=== PATIENT | female | born 1995 | race Caucasian/White ===

== ENCOUNTER 2020-03-15 09:41 | Emergency (ER) | payer MEDICAID, SELFPAY ==
[2020-03-15 10:10] VITALS: BP 133/86; PULSE 108; RESP 18; TEMP 37.1; O2SAT 99; BMI 22.2
--- NOTE | 2020-03-15 10:19 | HMH.EDUTC ---
[facility] [place]position Clinical Impression: Bronchitis Sinusitis Qualifiers: Sinusitis location: unspecified location Chronicity: unspecified Qualified Code(s): J32.9 - Chronic sinusitis, unspecified Disposition: Home, Self-Care Condition on Discharge: Good Instructions: Sinusitis, Sinus Headache, Acute Bronchitis, DI for Sinusitis Additional Instructions: ? Start antibiotic today. Be sure to complete entire prescription even if feeling better ? Monitor temp. Tylenol every 4 hours as needed and / or ibuprofen every 6 hours as needed ( As long as your primary care physician has told you that it ok to take both. For fever/aches/pains ER if no less than 101 despite Tylenol or Motrin ? Humidifier/vaporizer or hot steamy shower ? Mucinex during the day for your cough and cough suppressant only at night. Be sure to drink lots of water. Insurance may not cover a prescriptions for mucinex. Might be cheaper to get 400mg tablets and take 2 tablet in the morning, mid-day and evening with lots of water. *Tessalon Perles will not cause drowsiness but use at bedtime to help stop cough so that you may get some rest. *Start steroid today. Helps with inflammation therefore, cough and wheezing. Follow directions on the package. Reviewed side effects. Patient reports taking them before. Follow up IMMEDIATELY for new or worsening of symptoms OR no noticeable improvement over the next 48-72 hours. 911 immediately for any life threatening symptoms such as chest pain or difficulty breathing Prescriptions: Amoxicillin/Potassium Clav [Augmentin 875-125 Tablet] 1 tab PO Q12H 10 Days #20 tab Transmission Status: Pending to [facility] #[id number] methylPREDNISolone [Medrol 4mg tab] 4 mg PO DIRECTED #21 tab Transmission Status: Pending to [facility] #[id number] Benzonatate [Tessalon Perle 100mg Cap*] 100 mg PO TID PRN #15 cap PRN Reason: Cough Transmission Status: Pending to [facility] #[id number] Referrals: Corina Spence PA [Primary Care Provider] - As needed Time of Disposition: 10:24 Medical Decision Making - Arsalan Inquiry Pt receiving controlled substance: No Arsalan was queried for this patient: No Vital Signs: 03/15/20 10:10 Temperature 98.8 F Temperature Source Oral Pulse Rate [Left Radial] 108 H Respiratory Rate 18 Blood Pressure [Right Arm] 133/86 Blood Pressure Mean [Right Arm] 101 Blood Pressure Source [Right Arm] Automatic Cuff Blood Pressure Position [Right Arm] Supine 02 Sat by Pulse Oximetry 99 Oxygen Delivery Method Room Air [facility] [place] HPI - General Stated complaint: cough up junk Time Seen by Provider: 03/15/20 10:19 Mode of Arrival: Ambulatory Source of Information: Patient Limitations: No Limitations Description of Symptoms (Recalled from Triage Doc. by RN): WAS DIAGNOSED WITH BRONCHITISIS A FEW DAYS AGO AND FEELS SHE HAS IT, COUGHING UP PHELGM HEENT Symptoms (Recalled from RN notes): No Resp Symptoms (Recalled from RN notes): Yes Skin Symptoms (Recalled from RN notes): No MS Symptoms (Recalled from RN notes): No Functional Status (Recalled from RN notes): WNL - History of Present Illness Provider Complaint: Patient states that she thinks she has bronchitis States that she has been having cough, sinus pain and pressure along with pain in both ears States that she feels like her ears are stopped up States that she hasnt had a fever that she is aware of States that she is having drainage in the back of her throat and it makes her cough and at times she coughs it up - Related Data Previous Rx's Medication Instructions Recorded Amoxicillin/Potassium Clav 1 tab PO Q12H 10 Days #20 tab 03/15/20 [Augmentin 875-125 Tablet] Benzonatate [Tessalon Perle 100mg 100 mg PO TID PRN #15 cap 03/15/20 Cap*] methylPREDNISolone [Medrol 4mg 4 mg PO DIRECTED #21 tab 03/15/20 tab] Allergies Allergy/AdvReac Type Severity Reaction Status Date / Time No Known Allergies Allergy Verified
[2020-03-15 10:46] VITALS: BP 133/86; PULSE 108; RESP 18; TEMP 37.1; O2SAT 99
== END 2020-03-15 10:39 | disposition home or self-care (01) ==
PROVIDERS: Emergency Provider Nurse Practitioner; PCP Nurse Practitioner Family
DX: J20.9 Acute bronchitis, unspecified (principal); J32.9 Chronic sinusitis, unspecified
CPT/HCPCS: 99201

== ENCOUNTER 2023-04-11 09:50 | Emergency (ER) | payer MEDICAID, SELFPAY ==
[2023-04-11 10:10] VITALS: BP 130/87; PULSE 101; RESP 18; TEMP 37.2; O2SAT 100; BMI 18.8
--- NOTE | 2023-04-11 10:18 | EXP.UTC ---
Discharge Plan Disposition Patient Disposition: Home, Self-Care Condition: Good Prescriptions Prescriptions: New methylprednisolone 4 mg Tablets,Dose Pack 4 mg PO DIRECTED Qty: 21 0RF albuterol sulfate [Ventolin HFA] 90 mcg/actuation HFA aerosol inhaler 2 puff inhalation Q6H PRN (Reason: shortness of breath or wheezing) Qty: 6.7 0RF benzonatate [benzonatate] 100 mg capsule 100 mg PO TIDP PRN (Reason: Cough) Qty: 30 0RF Referrals Follow up/Referrals: Kristina Morgan APRN [Primary Care Provider] - See instructions Activity Restrictions/Add. Instructions Additional Instructions/Restrictions: Continue the azithromycin that you have already started. Take tylenol or ibuprofen for pain or fever. Take the medications as directed. Follow up with your regular doctor. GO TO THE ER FOR ANY WORSENING SYMPTOMS Don't start the oral steroids until tomorrow, since you had the shot here today. Clinical Impressions Clinical Impression: Pneumonia Stand Alone Forms Stand Alone Forms: Work/School Release Instructions Patient Instructions: Pneumonia-Adult, Ceftriaxone Injection, Dexamethasone Injection Discharge ED Provider: Johan Bah [facility] General Stated complaint: lung pain, runny nose, fever Time Seen by Provider: 04/11/23 10:18 History of Present Illness Provider Complaint: She states that for the past 2 weeks she has had cough, sinus congestion and chest congestion. She has ran a fever for the past 3 days. Related Data Previous Rx's Medication Instructions Recorded albuterol sulfate 90 mcg/actuation 2 puff inhalation Q6H PRN 04/11/23 aerosol inhaler (Ventolin HFA) shortness of breath or wheezing #6.7 grams benzonatate 100 mg capsule 100 mg PO TIDP PRN Cough #30 caps 04/11/23 methylprednisolone 4 mg tablets in 4 mg PO DIRECTED #21 tabs 04/11/23 a dose pack Allergies Allergy/AdvReac Type Severity Reaction Status Date / Time No Known Allergies Allergy Verified 04/11/23 10:40 [facility] Disclaimer: The information contained in this section may have been updated after the patient was seen, as this information can be updated by other users. Social History Smoking Status: Never smoker alcohol intake: never current occupational status: employed Travel in the last 8 weeks: None ROS Obtained: Yes All systems reviewed & no additional complaints except as documented Constitutional Constitutional: Reports chills and Reports fever(s) Eyes Eyes: Denies eye discharge ENT Ears, Nose, Mouth, and Throat: Reports as per HPI Cardiovascular Cardiovascular: Denies chest pain Respiratory Respiratory: Denies chest congestion and Reports cough Gastrointestinal Gastrointestingal: Reports nausea; Denies abdominal pain, constipation, cramping, diarrhea or vomiting Musculoskeletal Musculoskeletal: Denies arthralgias Integumentary/Breasts Skin/Breast: Denies rash Neurologic Neurologic: Denies paresthesias Physical Exam General General appearance: alert and in no apparent distress Head Head exam: atraumatic, normocephalic and normal inspection Eye Eye exam: Present normal appearance, PERRL and EOMI ENT ENT exam: Present mucous membranes moist and normal external ear exam Expanded ENT Exam TM/Canal exam: Bilateral TM: erythema and bulging Nose exam: Absent sinus tenderness Mouth exam: Present normal external inspection; Absent drooling Teeth exam: Present normal inspection Throat exam: Present tonsillar erythema, tonsillomegaly and tonsillar exudate Neck Neck exam: Present normal inspection, full ROM and trachea midline; Absent tenderness, meningismus or lymphadenopathy Chest Chest inspection: Present normal inspection and symmetric chest wall rise; Absent tenderness Respiratory Respiratory exam: Present normal lung sounds bilaterally; Absent respiratory distress, wheezes or stridor Cardiovascular Cardiovascular exam: Present regular rate and normal rhythm; A
--- NOTE | 2023-04-11 10:23 | XR_ITS ---
FINAL REPORT CLINICAL HISTORY: cough FINDINGS: TWO-VIEW CHEST The heart size is normal. The mediastinum is normal. The lungs are clear. There is no pneumothorax. IMPRESSION: No acute cardiopulmonary process. Reviewed, Interpreted and Dictated by Buddy Ross MD Transcribed by Rosemarie Black Authenticated and [facility]
[2023-04-11 10:33] LABS: UTC Pregnancy Test, Urine Negative (Negative)
[2023-04-11 10:33] LABS: UTC Influenza A Antigen Negative (Negative); UTC Influenza B Antigen Negative (Negative)
[2023-04-11 11:30] VITALS: BP 130/87; PULSE 101; RESP 20; TEMP 37.2; O2SAT 100
== END 2023-04-11 11:39 | disposition home or self-care (01) ==
PROVIDERS: Emergency Provider Nurse Practitioner Family; PCP Nurse Practitioner Family
DX: J18.9 Pneumonia, unspecified organism (principal); R07.1 Chest pain on breathing; R50.9 Fever, unspecified; R05.9 Cough, unspecified; R09.81 Nasal congestion; R09.89 Other specified symptoms and signs involving the circulatory and respiratory systems; R11.0 Nausea
CPT/HCPCS: 71046; 81025; 87635; 87804; 96372; 99204; 99212; G0463; J0696

== ENCOUNTER 2023-05-02 12:59 | Emergency (ER) | payer MEDICAID, SELFPAY ==
[2023-05-02 13:25] VITALS: BP 141/85; PULSE 77; RESP 22; TEMP 36.9; O2SAT 100; BMI 18.9
[2023-05-02 13:57] LABS: Adenovirus,PCR Not Detected (NotDetected); Bordetella Pertussis Not Detected (NotDetected); Chlamydophila Pneumoniae, PCR Not Detected (NotDetected); Coronavirus 19, PCR Not Detected (NotDetected); Coronavirus 229E Not Detected (NotDetected); Coronavirus NL63 Not Detected (NotDetected); Coronavirus OC43 Not Detected (NotDetected); Coronovirus HKU1,PCR Not Detected (NotDetected); Human Metapneumovirus Not Detected (NotDetected); Influenza A, PCR Not Detected (NotDetected); Influenza AH1, 2009 Not Detected (NotDetected); Influenza AH1, PCR Not Detected (NotDetected); Influenza AH3,PCR Not Detected (NotDetected); Influenza B, PCR Not Detected (NotDetected); Mycoplasma Pneumoniae, PCR Not Detected (NotDetected); Parainfluenza 1, PCR Not Detected (NotDetected); Parainfluenza 2, PCR Not Detected (NotDetected); Parainfluenza 3, PCR Not Detected (NotDetected); Parainfluenza 4, PCR Not Detected (NotDetected); Respiratory Syncytial Virus Not Detected (NotDetected); Rhinovirus/Enterovirus Not Detected (NotDetected)
[2023-05-02 14:02] LABS: UTC Influenza A Antigen Negative (Negative); UTC Influenza B Antigen Negative (Negative)
[2023-05-02 14:03] VITALS: BP 141/85; PULSE 77; RESP 22; TEMP 36.9; O2SAT 100
--- NOTE | 2023-05-02 14:05 | EXP.UTC ---
Discharge Plan Disposition Patient Disposition: Home, Self-Care Condition: Good Prescriptions Prescriptions: No Action venlafaxine 37.5 mg capsule,extended release 24hr 37.5 mg PO DAILY Patient Comments: TAKE 1 CAPSULE BY MOUTH EVERY DAY WITH FOOD amitriptyline 10 mg tablet 10 mg PO DAILY Patient Comments: TAKE 1 TABLET BY MOUTH AT BEDTIME NEEDED quetiapine 50 mg tablet 50 mg PO DAILY Patient Comments: TAKE 1 TABLET BY MOUTH EVERY DAY AT BEDTIME Referrals Follow up/Referrals: Kristina Morgan APRN [Primary Care Provider] - See instructions Activity Restrictions/Add. Instructions Additional Instructions/Restrictions: *Monitor Temp, Over the counter Motrin or Tylenol as directed/as needed Tylenol every 4 hours and Motrin every 6 hours (as long as your family doctor has told you that you can take it) for fever or pain. and straight to ER if unable to lower temp less than 101.0 after medication given *Warm salt water gargles may help to soothe the throat *Throat Lozenges? *Warm fluids like tea with honey may help to soothe the throat? *Sleep elevated *Humidifier/Vaporizer *Your throat swab was sent for culture. Those results are typically sent to your primary care. Be sure to follow up in 2-3 days with your family doctor/primary care physician if no improvement so they can review those result and treat if necessary. If you don?t have a primary care doctor, I recommend you get one but in the mean time, you will have to return to a walk in clinic Follow up IMMEDIATELY for new or worsening symptoms or no Noticeable improvement over the next 48-72 hours. 911 for difficulty breathing or swallowing You were tested for today for ?Upper Respiratory Panel with COVID19 your test result should be back in the next 24hours, you may check your results on the [facility] [facility] if your COVID or Flu is positive you must Quarantine for 5 days Clinical Impressions Clinical Impression: Viral syndrome Stand Alone Forms Stand Alone Forms: Work/School Release Instructions Patient Instructions: DI for Viral Syndrome, DI for Fever (Symptom) -- Adult Discharge ED Provider: Nuvia Dolan [facility] [place] HPI General Stated complaint: body aches, fever Mode of Arrival: Ambulatory Source of Information: Patient Limitations: No Limitations Time Seen by Provider: 05/02/23 14:05 Description of Symptoms (Recalled from Triage Doc. by RN): PATIENT C/O BODY ACHES, FATIGUE, FEVER, EYE DRAINAGE, AND HEADACHE SINCE MONDAY. RECENTLY EXPOSED TO COVID HEENT Symptoms (Recalled from RN notes): Yes Resp Symptoms (Recalled from RN notes): No Skin Symptoms (Recalled from RN notes): No MS Symptoms (Recalled from RN notes): No Functional Status (Recalled from RN notes): WNL History of Present Illness Provider Complaint: Patient states that she was recently around someone at work that has COVID States that now she is having symptoms States that she has been having nasal congestion, fever, body aches, chills and fatigue since Monday States that work wanted her to get tested Related Data Home Medications Medication Instructions Recorded Confirmed amitriptyline 10 mg tablet 10 mg PO DAILY 05/02/23 05/02/23 quetiapine 50 mg tablet 50 mg PO DAILY 05/02/23 05/02/23 venlafaxine 37.5 mg 37.5 mg PO DAILY 05/02/23 05/02/23 capsule,extended release 24 hr Allergies Allergy/AdvReac Type Severity Reaction Status Date / Time No Known Allergies Allergy Verified 04/11/23 10:40 Worker's Comp Is this a Worker's Comp case?: No [facility] Disclaimer: The information contained in this section may have been updated after the patient was seen, as this information can be updated by other users. Medical History (Updated 05/02/23 @ 14:08 by Nuvia Dolan APRN) Anxiety Depression Kidney stone Migraine Urinary tract infection Social History (Updated 04/11/23 @ 15:02 by Johan Bah APRN) Smoking Status: Never smoker alcohol intake: never current occupational status: employed Travel in the last 8 weeks: None ROS Obtained: Yes All systems reviewed & no additional complaints except as documented and Yes Systems reviewed as appropriate & no additional complaints except as documented Constitutional Constitutional: Reports system reviewed and no additional complaints, except as documented, Reports as per HPI, Reports body ache, Reports chills, Reports fever(s) and Reports headache(s) ENT Ears, Nose, Mouth, and Throat: Reports system reviewed and no additional complaints, except as documented, Reports as per HPI, Reports headache(s), Reports nasal congestion and Reports nasal discharge Cardiovascular Cardiovascular: Reports system reviewed and no additional complaints, except as documented and Reports as per HPI Respiratory Respiratory: Reports system reviewed and no additional complaints, except as documented and Reports as per HPI Gastrointestinal Gastrointestingal: Reports system reviewed and no additional complaints, except as documented and as per HPI Neurologic Neurologic: Reports headache(s) Physical Exam General General appearance: alert and in no apparent distress ENT ENT exam: Present mucous membranes moist Expanded ENT Exam Nose exam: Absent sinus tenderness Chest Chest inspection: Present normal inspection and symmetric chest wall rise Respiratory Respiratory exam: Present normal lung sounds bilaterally; Absent respiratory distress or wheezes Cardiovascular Cardiovascular exam: Present regular rate, normal rhythm and normal heart sounds Neurological Exam Neurological exam: Present alert, oriented X3 and normal gait Medical Decision Making Arsalan Inquiry Pt receiving controlled substance: No Arsalan was queried for this patient: No Vital Signs: 05/02/23 13:25 05/02/23 14:03 Temperature 98.5 F 98.5 F Temperature Source Oral Pulse Rate 77 Pulse Rate [Left Brachial] 77 Respiratory Rate 22 22 Blood Pressure 141/85 H Blood Pressure [Left Arm] 141/85 H Blood Pressure Mean [Left Arm] 103 Blood Pressure Source [Left Arm] Automatic Cuff Blood Pressure Position [Left Arm] Sitting 02 Sat by Pulse Oximetry 100 Oxygen Delivery Method Room Air Lab Data Lab results reviewed: Yes I reviewed the patient's lab results. Lab Results 05/02/23 13:36: Influenza Type A Ag Negative, Influenza Type B Ag Negative Orders (Tests/Meds): ORDERS Category Date Time Status Full Resp Panel w/COVID ([facility]) Routine Lab 05/02/23 13:20 Received
== END 2023-05-02 14:19 | disposition home or self-care (01) ==
PROVIDERS: Emergency Provider Nurse Practitioner; PCP Nurse Practitioner Family
DX: R51.9 Headache, unspecified (principal); R50.9 Fever, unspecified; R09.81 Nasal congestion; R53.83 Other fatigue; M79.18 Myalgia, other site; B34.9 Viral infection, unspecified; Z20.822 Contact with and (suspected) exposure to COVID-19; F41.9 Anxiety disorder, unspecified; F32.A Depression, unspecified
CPT/HCPCS: 87581; 87632; 87635; 87798; 87804; 99212; 99213; G0463

== ENCOUNTER 2023-05-31 14:05 | Emergency (ER) | payer MEDICAID, SELFPAY ==
[2023-05-31 14:07] VITALS: BP 141/98; PULSE 106; RESP 18; TEMP 36.7; O2SAT 98; BMI 18.8
--- NOTE | 2023-05-31 14:19 | ED_ITS ---
Discharge Plan Disposition Patient Disposition: Home, Self-Care Condition: Good Prescriptions Prescriptions: No Action venlafaxine 37.5 mg capsule,extended release 24hr 37.5 mg PO DAILY Patient Comments: TAKE 1 CAPSULE BY MOUTH EVERY DAY WITH FOOD amitriptyline 10 mg tablet 10 mg PO DAILY Patient Comments: TAKE 1 TABLET BY MOUTH AT BEDTIME NEEDED quetiapine 50 mg tablet 50 mg PO DAILY Patient Comments: TAKE 1 TABLET BY MOUTH EVERY DAY AT BEDTIME Referrals Follow up/Referrals: Hugo Jordan MD [Staff Physician] - See instructions Kristina Morgan APRN [Primary Care Provider] - See instructions Activity Restrictions/Add. Instructions Additional Instructions/Restrictions: Please call Dr. Bullock's office to arrange an appointment in the a.m. Clinical Impressions Clinical Impression: Raynaud's phenomenon Discharge ED Provider: Lauri Montes De Oca General Adult HPI <ISELA Hinds - Last Filed: 05/31/23 16:12> General Chief complaint: PAIN Stated complaint: swollen hands, feet and ankles swollen and painful Time Seen by Provider: 05/31/23 14:10 History of Present Illness HPI narrative: Patient presents with cold bilateral distal fingers bilateral feet which received swelling and pain since Monday. Patient denies trauma has never been diagnosed with Raynaud's phenomenon previously. 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 Onset (ago): day(s) (5) Related Data Home Medications Medication Instructions Recorded Confirmed amitriptyline 10 mg tablet 10 mg PO DAILY 05/02/23 05/02/23 quetiapine 50 mg tablet 50 mg PO DAILY 05/02/23 05/02/23 venlafaxine 37.5 mg 37.5 mg PO DAILY 05/02/23 05/02/23 capsule,extended release 24 hr Allergies Allergy/AdvReac Type Severity Reaction Status Date / Time No Known Allergies Allergy Verified 04/11/23 10:40 PFSH <ISELA Hinds - Last Filed: 05/31/23 16:12> [facility] Disclaimer: The information contained in this section may have been updated after the patient was seen, as this information can be updated by other users. Medical History (Updated 05/31/23 @ 16:12 by ISELA Hinds) Anxiety Depression Kidney stone Migraine Urinary tract infection Social History (Updated 04/11/23 @ 15:02 by Johan Bah APRN) Smoking Status: Current every day smoker alcohol intake: never current occupational status: employed Travel in the last 8 weeks: None <ISELA Hinds - Last Filed: 05/31/23 16:12> ROS Obtained: Yes Systems reviewed as appropriate & no additional complaints except as documented Physical Exam <ISELA Hinds - Last Filed: 05/31/23 16:12> Narrative Physical exam: Patient is a well-nourished well-developed 27-year-old female who otherwise is in no acute distress General General appearance: alert and in no apparent distress Head Head exam: atraumatic and normal inspection Eye Eye exam: Present normal appearance, PERRL and EOMI ENT ENT exam: Present normal exam, normal oropharynx and mucous membranes moist Neck Neck exam: Present normal inspection, full ROM and trachea midline; Absent lymphadenopathy Chest Chest inspection: Present normal inspection and symmetric chest wall rise Respiratory Respiratory exam: Present normal lung sounds bilaterally Cardiovascular Cardiovascular exam: Present regular rate, normal rhythm, normal heart sounds, +S1 and +S2 Abdominal Exam Abdominal exam: Present soft and normal bowel sounds; Absent tenderness, guarding or rebound Extremities Exam Extremities exam: Present normal inspection and full ROM; Absent normal capillary refill (Delayed) Back Exam Back exam: Present normal inspection and full ROM Neurological Exam Neurological exam: Present alert, oriented X3 and CN II-XII intact Psychiatric Psychiatric exam: Present normal affect and normal mood Skin Skin exam: Present other (Patient has a well-demarcated redness at the distal phalanges of the bilateral upper extremities and both feet. The skin is cool to touch. There is delayed capillary refill. Patient does have palpable pulses however soft touch is eliciting a tender response in the affected areas.) Lymphatic Lymphatic Findings: no adenopathy Medical Decision Making <ISELA Hinds - Last Filed: 05/31/23 16:12> Arsalan Inquiry Pt receiving controlled substance: No Vital Signs: 05/31/23 14:07 05/31/23 16:43 Temperature 98.1 F 98.1 F Temperature Source Oral Oral Pulse Rate 98 H Pulse Rate [Right] 106 H Respiratory Rate 18 18 Blood Pressure 128/82 Blood Pressure [Right Arm] 141/98 H Blood Pressure Mean [Right Arm] 112 Blood Pressure Source Automatic Cuff Blood Pressure Source [Right Arm] Automatic Cuff 02 Sat by Pulse Oximetry 98 Oxygen Delivery Method Room Air Room Air Lab Data Lab Results 05/31/23 14:31: Urine Color Yellow, Urine Appearance Clear, Urine pH 6.0, Ur Specific [place] 1.015, Urine Protein Negative, Urine Glucose (UA) Negative, Urine Ketones Negative, Urine Blood Negative, Urine Nitrate Negative, Urine Bilirubin Negative, Urine Urobilinogen 0.2, Ur Leukocyte Esterase Negative, Urine RBC None, Urine WBC None, Ur Squamous Epith Cells Occasional, Urine David teria Trace 05/31/23 14:45: WBC 8.3, RBC 4.78, Hgb 14.7, Hct 44.8, MCV 93.7, MCH 30.8, MCHC 32.8, RDW 13.1, Plt Count 176, MPV 8.7, Neut % (Auto) 66.7, Lymph % (Auto) 25.6, [place] % (Auto) 4.2, Eos % (Auto) 2.7, Baso % (Auto) 0.9, Neut # (Auto) 5.5, Lymph # (Auto) 2.1, [place] # (Auto) 0.4, Eos # (Auto) 0.2, Baso # (Auto) 0.1, Total Counted 100, Neutrophils % (Manual) 71, Lymphocytes % (Manual) 25, Monocytes % (Manual) 2, Eosinophils % (Manual) 2, Platelet Estimate Normal, RBC Morphology Normal, ESR 7, Sodium 139, Potassium 3.3 L, Chloride 103, Carbon Dioxide 29, Anion Gap 10.3, BUN 9, Creatinine 0.80, Estimated Creat Clear 89, Estimated GFR 85, Est GFR ( Amer) 103, Glucose 67 L, Calcium 9.4, C-Reactive Protein 1.0, TSH 0.88 05/31/23 14:45 05/31/23 14:45 Orders (Tests/Meds): ORDERS Category Date Time Status BMP [Basic Metabolic Panel] Stat Lab 05/31/23 14:45 Completed CBC Man Diff [Complete Blood Count Man Dif] Stat Lab 05/31/23 14:45 Completed CRP [C-Reactive Protein] Stat Lab 05/31/23 14:45 Completed ESR [Erythrocyte Sedimentation Rate] Stat Lab 05/31/23 14:45 Completed TSH [Thyroid Stimulating Hormone] Stat Lab 05/31/23 14:45 Completed UA [Urinalysis and Microscopic] Stat Lab 05/31/23 14:31 Completed Medical Decision Narrative: In summary patient is a 27-year-old female who presents to the emergency department for evaluation of coldness pain and swelling of the bilateral hands and feet. Patient is hemodynamically stable and afebrile upon arrival. Patient has a normal sinus rhythm without evidence of ACS with a rate of 80. Patient has well-demarcated color changes of the distal hands and feet that are cool to touch and possibly slightly swollen although it is nonpitting. Palpation elicits tenderness in the affected areas. Differential diagnosis includes Raynaud's phenomenon versus scleroderma or other rheumatological or autoimmune diseases. Initial workup will be conducted with hematologic labs. Initial interventions include warming blankets to the external extremities. Initial workup reviewed by me shows no actionable hematological lab results including normal white count normal sed rate normal CRP normal TSH. Upon repeat evaluation patient reports mild improvement after warming of her distal extremity discomfort. Given this patient is appropriate for discharge home with instructions to keep her rheumatology follow-up in August along with a referral to Dr. Bullock locally as her PCP will not be able to see her for almost a month if not longer. Patient's been instructed to decrease and cease smoking as it is likely the provocative event. Patient is been advised to keep her extremities and core warm is much as possible given her job. Patient can follow-up with PCP or return to ED with worsening of symptoms or any new symptoms as needed <Sana Mendes, DO - Last Filed: 06/01/23 07:42> Vital Signs: 05/31/23 14:07 05/31/23 16:43 Temperature 98.1 F 98.1 F Temperature Source Oral Oral Pulse Rate 98 H Pulse Rate [Right] 106 H Respiratory Rate 18 18 Blood Pressure 128/82 Blood Pressure [Right Arm] 141/98 H Blood Pressure Mean [Right Arm] 112 Blood Pressure Source Automatic Cuff Blood Pressure Source [Right Arm] Automatic Cuff 02 Sat by Pulse Oximetry 98 Oxygen Delivery Method Room Air Room Air Lab Data Lab Results 05/31/23 14:31: Urine Color Yellow, Urine Appearance Clear, Urine pH 6.0, Ur Specific [place] 1.015, Urine Protein Negative, Urine Glucose (UA) Negative, Urine Ketones Negative, Urine Blood Negative, Urine Nitrate Negative, Urine Bilirubin Negative, Urine Urobilinogen 0.2, Ur Leukocyte Esterase Negative, Urine RBC None, Urine WBC None, Ur Squamous Epith Cells Occasional, Urine Bacteria Trace 05/31/23 14:45: WBC 8.3, RBC 4.78, Hgb 14.7, Hct 44.8, MCV 93.7, MCH 30.8, MCHC 32.8, RDW 13.1, Plt Count 176, MPV 8.7, Neut % (Auto) 66.7, Lymph % (Auto) 25.6, [place] % (Auto) 4.2, Eos % (Auto) 2.7, Baso % (Auto) 0.9, Neut # (Auto) 5.5, Lymph # (Auto) 2.1, [place] # (Auto) 0.4, Eos # (Auto) 0.2, Baso # (Auto) 0.1, Total Counted 100, Neutrophils % (Manual) 71, Lymphocytes % (Manual) 25, Monocytes % (Manual) 2, Eosinophils % (Manual) 2, Platelet Estimate Normal, RBC Morphology Normal, ESR 7, Sodium 139, Potassium 3.3 L, Chloride 103, Carbon Dioxide 29, Anion Gap 10.3, BUN 9, Creatinine 0.80, Estimated Creat Clear 89, Estimated GFR 85, Est GFR ( Amer) 103, Glucose 67 L, Calcium 9.4, C-Reactive Protein 1.0, TSH 0.88 Orders (Tests/Meds): ORDERS Category Date Time Status BMP [Basic Metabolic Panel] Stat Lab 05/31/23 14:45 Completed CBC Man Diff [Complete Blood Count Man Dif] Stat Lab 05/31/23 14:45 Completed CRP [C-Reactive Protein] Stat Lab 05/31/23 14:45 Completed ESR [Erythrocyte Sedimentation Rate] Stat Lab 05/31/23 14:45 Completed TSH [Thyroid Stimulating Hormone] Stat Lab 05/31/23 14:45 Completed UA [Urinalysis and Microscopic] Stat Lab 05/31/23 14:31 Completed Medical Decision Narrative: In summary patient is a 27-year-old female who presents to the emergency department for evaluation of coldness pain and swelling of the bilateral hands and feet. Patient is hemodynamically stable and afebrile upon arrival. Patient has a normal sinus rhythm without evidence of ACS with a rate of 80. Patient has well-demarcated color changes of the distal hands and feet that are cool to touch and possibly slightly swollen although it is nonpitting. Palpation elicits tenderness in the affected areas. Differential diagnosis includes Raynaud's phenomenon versus scleroderma or other rheumatological or autoimmune diseases. Initial workup will be conducted with hematologic labs. Initial interventions include warming blankets to the external extremities. Initial workup reviewed by me shows no actionable hematological lab results including normal white count normal sed rate normal CRP normal TSH. Upon repeat keyur luation patient reports mild improvement after warming of her distal extremity discomfort. Given this patient is appropriate for discharge home with instructions to keep her rheumatology follow-up in August along with a referral to Dr. Bullock locally as her PCP will not be able to see her for almost a month if not longer. Patient's been instructed to decrease and cease smoking as it is likely the provocative event. Patient is been advised to keep her extremities and core warm is much as possible given her job. Patient can follow-up with PCP or return to ED with worsening of symptoms or any new symptoms as needed I was consulted by the JENNIFER, and we discussed the complexity of the problems nettie fiore addressed. I approved the treatment and management plan for this patient's care in the emergency department, thus performing a substantive portion of the medical decision making. Sana Mendes, DO Critical Care <ISELA Hinds - Last Filed: 05/31/23 16:12> Critical Care Time Critical Care Time: No
[2023-05-31 15:01] LABS: MANUAL DIFFERENTIAL MANUAL DIFFERENTIAL (MANUAL DIFF)
[2023-05-31 15:01] LABS: Microscopic, Urine URINE MICROSCOPIC (MICROSCOPIC)
[2023-05-31 15:04] LABS: Basophils # 0.1 K/mm3 (0-0.2); Basophils % 0.9 % (0.1-2.0); Eosinophils # 0.2 K/mm3 (0.0-0.4); Eosinophils % 2.7 % (0.1-12.0); Hematocrit 44.8 % (37.0-47.0); Hemoglobin 14.7 g/dL (12.2-16.2); Lymphocytes # 2.1 K/mm3 (0.7-4.5); Lymphocytes % 25.6 % (10-50); Mean Corpuscular HGB Conc 32.8 g/dL (31.8-35.4); Mean Corpuscular Hemoglobin 30.8 pg (27.0-31.2); Mean Corpuscular Volume 93.7 fl (81-99); Mean Platelet Volume 8.7 fl (7.4-10.4); Monocytes # 0.4 K/mm3 (0.1-1.0); Monocytes % 4.2 % (1.7-9.3); Neutrophils # 5.5 K/mm3 (1.8-7.8); Neutrophils % 66.7 % (37.0-80.0); Platelet Count 176 K/mm3 (142-424); Red Blood Count 4.78 M/mm3 (4.20-5.40); Red Cell Distribution Width 13.1 % (11.5-17.5); White Blood Count 8.3 K/mm3 (4.8-10.8)
[2023-05-31 15:08] LABS: Chloride 103 mmol/L (98-107); Potassium 3.3 mmoL/L (3.5-5.1); Sodium 139 mmol/L (136-145)
[2023-05-31 15:09] LABS: Appearance,Urine CLEAR (Clear); Bilirubin,Urine Negative (Negative); Blood, Urine Negative (Negative); Color,Urine YELLOW (Yellow); Glucose,Urine (UA) Negative (Negative); Ketones,Urine Negative (Negative); Leukocyte Esterase,Urine Negative (Negative); Nitrate,Urine Negative (Negative); Protein,Urine Negative (Negative); Specific Gravity, Urine 1.015 (1.005-1.030); Urobilinogen,Urine 0.2 EU/dl (0.2)
[2023-05-31 15:11] LABS: Blood Urea Nitrogen 9 mg/dl (7-17); Creatinine Clearance Estimated 89 mL/min (50-200); Estimated Glomerular Filt Rate 85 ml/min (>60); GFR (African American) 103 ML/MIN (>60)
[2023-05-31 15:12] LABS: Anion Gap 10.3 mEq/L (5-15); Calcium 9.4 mg/dl (8.4-10.2); Carbon Dioxide 29 mmol/L (22.0-30.0); Glucose 67 mg/dl (74-100)
[2023-05-31 15:37] LABS: Eosinophils % 2 % (0-3); Lymphocytes % 25 % (10-50); Monocytes % 2 % (2-9); Neutrophils % 71 % (42-76); Platelet Estimate Normal; RBC Morphology Normal; Total Cells Counted 100
[2023-05-31 15:44] LABS: Thyroid Stimulating Hormone 0.88 uIU/mL (0.465-4.68)
[2023-05-31 15:59] LABS: Bacteria,Urine Trace /lpf; Squamous Epithelial Cell,Urine Occasional #/hpf (0-5)
[2023-05-31 16:01] LABS: Erythrocyte Sedimentation Rate 7 mm/hr (0-20)
[2023-05-31 16:43] VITALS: BP 128/82; PULSE 98; RESP 18; TEMP 36.7; O2SAT 99
== END 2023-05-31 16:44 | disposition home or self-care (01) ==
PROVIDERS: Physician Assistant; Emergency Provider Emergency Medicine; PCP Nurse Practitioner Family
DX: I73.00 Raynaud's syndrome without gangrene (principal); M79.671 Pain in right foot; M79.672 Pain in left foot; R22.43 Localized swelling, mass and lump, lower limb, bilateral; F17.210 Nicotine dependence, cigarettes, uncomplicated
CPT/HCPCS: 80048; 81001; 84443; 85007; 85014; 85018; 85048; 85049; 85651; 86140; 99285

== ENCOUNTER 2023-06-10 11:37 | Emergency (ER) | payer MEDICAID, SELFPAY ==
[2023-06-10 11:48] VITALS: BP 0/0; PULSE 0; RESP 0; TEMP -17.7; TEMP 0
== END 2023-06-10 11:49 | disposition left against medical advice (07) ==
LOC: UTC 11:38
PROVIDERS: Emergency Provider Nurse Practitioner Family; PCP Nurse Practitioner Family
DX: Z53.21 Procedure and treatment not carried out due to patient leaving prior to being seen by health care provider (principal)

== ENCOUNTER 2023-07-27 14:38 | Emergency (ER) | payer MEDICAID, SELFPAY ==
[2023-07-27 14:45] VITALS: BP 153/97; PULSE 68; RESP 16; TEMP 36.6; O2SAT 100; BMI 19.7
--- NOTE | 2023-07-27 14:54 | XR_ITS ---
FINAL REPORT CLINICAL HISTORY: pain COMPARISON: None FINDINGS: RIGHT WRIST Three views demonstrate no acute fracture or dislocation. The visualized joint spaces are normally aligned. The soft tissues are unremarkable. IMPRESSION: No acute bony abnormality. Reviewed, Interpreted and Dictated by Buddy Ross MD Transcribed by Jackeline Mckeon Authenticated and [facility]
--- NOTE | 2023-07-27 14:54 | XR_ITS ---
FINAL REPORT CLINICAL HISTORY: pain COMPARISON: None FINDINGS: RIGHT HAND Three views demonstrate no acute fracture or dislocation. The visualized joint spaces are normally aligned. The soft tissues are unremarkable. IMPRESSION: No acute bony abnormality. Reviewed, Interpreted and Dictated by Buddy Ross MD Transcribed by Jackeline Mckeon Authenticated and [facility]
--- NOTE | 2023-07-27 14:57 | EXP.UTC ---
Discharge Plan Disposition Patient Disposition: Home, Self-Care Condition: Good Prescriptions Prescriptions: New methylprednisolone 4 mg Tablets,Dose Pack 4 mg PO DIRECTED 6 Days Qty: 21 0RF Rx Instructions: Take 1 pack as directed for 6 days No Action amitriptyline 10 mg tablet 10 mg PO DAILY Patient Comments: TAKE 1 TABLET BY MOUTH AT BEDTIME NEEDED quetiapine 50 mg tablet 50 mg PO DAILY Patient Comments: TAKE 1 TABLET BY MOUTH EVERY DAY AT BEDTIME Referrals Follow up/Referrals: Kristina Morgan APRN [Primary Care Provider] - See instructions Parish Rodríguez DO [Staff Physician] - See instructions Activity Restrictions/Add. Instructions Additional Instructions/Restrictions: Rest the extremity, Elevate the extremity as tolerated while you are resting. Take the medications as directed. Follow up with Dr. Rodríguez (orthopedics). I put in a referral but you need to call his office and schedule an appointment. Follow up with your regular doctor. GO TO THE ER FOR ANY WORSENING SYMPTOMS Clinical Impressions Clinical Impression: Tendinitis of right wrist, Right wrist pain, Right hand pain Stand Alone Forms Stand Alone Forms: Work/School Release Discharge ED Provider: Johan Bah [facility] [place] HPI General Stated complaint: possible cyst on Rt wrist Mode of Arrival: Ambulatory Source of Information: Patient Limitations: No Limitations Time Seen by Provider: 07/27/23 14:56 Description of Symptoms (Recalled from Triage Doc. by RN): PATIENT REPORTS HAVING A GANGLION CYST TO RIGHT WRIST X 5 YEARS. SHE STATES OVER THE PAST 6 DAYS HER RIGHT HAND HAS BECOME MORE PAINFUL AND SWOLLEN. NO KNOWN INJURY HEENT Symptoms (Recalled from RN notes): No Resp Symptoms (Recalled from RN notes): No Skin Symptoms (Recalled from RN notes): No MS Symptoms (Recalled from RN notes): Yes Functional Status (Recalled from RN notes): WNL History of Present Illness Provider Complaint: She states that for the past 5 days she has had right wrist and hand pain. She denies any injury. She does have a history of a ganglion cyst on that wrist, but she states that it has never caused her to have these symptoms. Related Data Home Medications Medication Instructions Recorded Confirmed amitriptyline 10 mg tablet 10 mg PO DAILY 05/02/23 07/27/23 quetiapine 50 mg tablet 50 mg PO DAILY 01/02/24 03/28/24 Previous Rx's Medication Instructions Recorded methylprednisolone 4 mg tablets in 4 mg PO DIRECTED 6 days #21 tabs 07/27/23 a dose pack Allergies Allergy/AdvReac Type Severity Reaction Status Date / Time No Known Allergies Allergy Verified 04/11/23 10:40 Worker's Comp Is this a Worker's Comp case?: No [facility] Disclaimer: The information contained in this section may have been updated after the patient was seen, as this information can be updated by other users. Medical History (Updated 07/27/23 @ 16:04 by Johan Bah APRN) Depression Anxiety Urinary tract infection Kidney stone Migraine Social History (Updated 04/11/23 @ 15:02 by Johan Bah APRN) Smoking Status: Current every day smoker alcohol intake: never current occupational status: employed Travel in the last 8 weeks: None ROS Obtained: Yes All systems reviewed & no additional complaints except as documented Constitutional Constitutional: Denies chills and Denies fever(s) Eyes Eyes: Denies eye discharge ENT Ears, Nose, Mouth, and Throat: Denies dizziness, Denies otalgia and Denies sore throat Cardiovascular Cardiovascular: Denies chest pain Respiratory Respiratory: Denies shortness of breath, Denies chest congestion, Denies cough, Denies stridor and Denies wheezing Gastrointestinal Gastrointestingal: Denies nausea or vomiting Musculoskeletal Musculoskeletal: Reports as per HPI Integumentary/Breasts Skin/Breast: Denies rash Neurologic Neurologic: Denies dizziness and Denies paresthesias Allergic/Immunologic Allergic/Immunologic: Denies wheezing Physical Exam General General appearance: alert and in no apparent distress Head Head exam: atraumatic, normocephalic and normal inspection Eye Eye exam: Present normal appearance, PERRL and EOMI ENT ENT exam: Present normal exam, normal oropharynx, mucous membranes moist, TM's normal bilaterally and normal external ear exam Neck Neck exam: Present normal inspection, full ROM and trachea midline; Absent meningismus or lymphadenopathy Chest Chest inspection: Present normal inspection and symmetric chest wall rise; Absent tenderness Respiratory Respiratory exam: Present normal lung sounds bilaterally; Absent respiratory distress Cardiovascular Cardiovascular exam: Present regular rate and normal rhythm; Absent JVD Abdominal Exam Abdominal exam: Present soft and normal bowel sounds; Absent distention, tenderness or guarding Extremities Exam Extremities exam: Present normal capillary refill; Absent calf tenderness Expanded Upper Extremity Exam Right: Shoulder exam: Present normal inspection and full ROM; Absent tenderness or tenderness over AC joint Arm exam: Present normal inspection and full ROM; Absent tenderness Elbow exam: Present normal inspection and full ROM; Absent tenderness, pain w/ pronation/supination or tenderness over radial head Forearm/Wrist exam: Present tenderness; Absent full ROM, swelling, abrasion, laceration, ecchymosis, deformity, crepitus, dislocation, erythema, tenderness over anatomical snuff box or pain with axial thumb loading Hand exam: Present tenderness; Absent full ROM, swelling, abrasion, laceration, skin avulsion, ecchymosis, deformity, crepitus, dislocation, erythema, amputation, nail avulsion or subungual hematoma Neuromotor exam: Normal wrist extension, thumb opposition, thumb IP flexion, thumb adduction and fingers 2-5 abduction Neurosensory exam: Normal radial nerve, ulnar nerve and median nerve Vascular exam: Normal capillary refill, radial pulse and ulnar pulse Back Exam Back exam: Present normal inspection; Absent tenderness Neurological Exam Neurological exam: Present alert and oriented X3 Psychiatric Psychiatric exam: Present normal affect and normal mood Skin Skin exam: Present warm, dry, intact and normal color Lymphatic Lymphatic Findings: no adenopathy Medical Decision Making Arsalan Inquiry Pt receiving controlled substance: No Vital Signs: 07/27/23 14:45 Temperature 97.9 F Temperature Source Oral Pulse Rate [Left Brachial] 68 Respiratory Rate 16 Blood Pressure [Left Arm] 153/97 H Blood Pressure Mean [Left Arm] 115 Blood Pressure Source [Left Arm] Automatic Cuff Blood Pressure Position [Left Arm] Sitting 02 Sat by Pulse Oximetry 100 Oxygen Delivery Method Room Air Orders (Tests/Meds): ORDERS Category Date Time Status Wrist XR right minimum 3 views [XR wrist RT min 3V] Exams 07/27/23 14:54 Ordered Stat XR hand RT min 3V Stat Exams 07/27/23 14:54 Ordered Procedures Risk/Benefits of Procedure(s) Were Explained: Yes Orthopedic Splinting/Casting Injury #1: Side: right Upper Extremity Injury Location: wrist and hand Upper Extremity Immobilizer: volar splint Post Cast/Splinting Neuro Status: intact and no change Post Cast/Splinting Vasc Status: intact and no change
[2023-07-27 16:05] VITALS: BP 153/97; PULSE 68; RESP 16; TEMP 36.6; O2SAT 100
== END 2023-07-27 16:12 | disposition home or self-care (01) ==
PROVIDERS: Emergency Provider Nurse Practitioner Family; PCP Nurse Practitioner Family
DX: M79.641 Pain in right hand (principal); M25.531 Pain in right wrist; M67.833 Other specified disorders of tendon, right wrist; F17.210 Nicotine dependence, cigarettes, uncomplicated
CPT/HCPCS: 73110; 73130; 99212; 99214; G0463

== ENCOUNTER 2023-10-25 14:35 | Outpatient (CLI) | payer MEDICAID, SELFPAY ==
--- NOTE | 2023-10-25 14:53 | XR_ITS ---
FINAL REPORT CLINICAL HISTORY: rt wrist pain FINDINGS: Three views show no evidence of an acute, displaced fracture or dislocation of the visualized bony architecture. The joint spaces appear normal. IMPRESSION: Unremarkable exam. Reviewed, Interpreted and Dictated by Melvin Valentino MD Transcribed by Rosemarie Black Authenticated and [facility]
--- NOTE | 2023-10-25 14:53 | XR_ITS ---
FINAL REPORT CLINICAL HISTORY: Left Shoulder Pain FINDINGS: Two views show no evidence of acute displaced fracture or dislocation of the visualized bony architecture. The joint spaces appear normal. IMPRESSION: Unremarkable exam. Reviewed, Interpreted and Dictated by Melvin Valentino MD Transcribed by Rosemarie Black Authenticated and [facility]
== END 2023-10-25 23:59 | disposition home or self-care (01) ==
LOC: RAD 14:36
PROVIDERS: PCP Nurse Practitioner Family; Visit Provider Physician Assistant
DX: M25.512 Pain in left shoulder (principal); M25.531 Pain in right wrist
CPT/HCPCS: 73030; 73110

== ENCOUNTER 2024-03-13 16:20 | Emergency (ER) | payer MEDICAID, SELFPAY ==
--- OUTSIDE RECORDS SUMMARY | 2024-03-13 16:27 | XMS_ITS | Clinical Summary ---
Author Organization [facility] Address [address] [place] [address] Care Team Providers Care Civil Engineering Professor Name Role Phone Corina Spence APRN Primary Care Provider +1- [phone] Allergies Active Allergy Reactions Criticality Noted Date Comments Sulfamethoxazole-Trimethop rim Other - please document in the comment field Low 12/14/2023 Medications QUEtiapine (SEROquel) 50 MG tablet Take 1 tablet (50 mg) by mouth every night. 10/27/2020 Active nicotine (Nicotrol) 10 MG inhaler Inhale 1 puff if needed for smoking cessation. 42 each 12/07/2020 Active amitriptyline (Elavil) 10 MG tablet Take 1 tablet (10 mg) by mouth at night if needed. Active aspirin 81 MG EC tablet Take 1 tablet (81 mg) by mouth Daily. 08/09/2023 Active hydroxychloroqu ine (Plaquenil) 200 MG tablet Take 1 tablet (200 mg) by mouth 1 (one) time each day. Active Active Problems Problem Noted Date Diagnosed Date Routine follow-up 02/18/2021 Assessment & Plan (02/18/2021 12:39 PM EDT): - doing well - nexplanon placed today - pap today - RTC as needed uterine contractions in third trimester, antepartum 12/25/2020 Diet controlled gestational diabetes mellitus (GDM) in third trimester 12/07/2020 Fall 12/07/2020 High risk due to h istory of labor in third trimester 12/07/2020 Smoker 12/07/2020 Encounters Date Type Department Care Team Description 03/08/2024 Telephone Obstetrics & Gynecology [address] [place] [address] Felice Camacho MD 02/09/2024 2:15 PM EDT Office Visit Obstetrics & Gynecology [address] [place] [address] Felice Camacho MD Endometriosis (Primary Dx); Pelvic and perineal pain; Irregular menstruation, unspecified; Family planning 02/09/2024 Travel 02/07/2024 Telephone Obstetrics & Gynecology [address] [place] [address] Autumn Nix RN 01/22/2024 9:00 AM EDT Office Visit Obstetrics & Gynecology [address] [place] [address] Felice Camacho MD Pelvic and perineal pain (Primary Dx); Endometriosis; Irregular menstruation, unspecified 01/22/2024 Travel 01/21/2024 Travel 01/12/2024 Telephone Obstetrics & Gynecology [address] [facility] [place] [address] Felice Camacho MD 01/12/2024 Telephone Obstetrics & Gynecology [address] [place] [address] Felice Camacho MD 01/09/2024 Orders Only External Location [address] [place] [address] Felice Camacho MD 01/08/2024 11:15 AM EDT Office Visit Obstetrics & Gynecology [address] [facility] [place] [address] Felice Camacho MD Pelvic and perineal pain (Primary Dx); Irregular menstruation, unspecified; Endometriosis 01/08/2024 Telephone Obstetrics & Gynecology [address] [place] [address] Felice Camacho MD [facility] - Patient Message 01/08/2024 Travel 01/07/2024 Travel 12/14/2023 10:20 AM EDT Ancillary Procedure Obstetrics & Gynecology [address] [place] [address] Pelvic and perineal pain 12/14/2023 10:00 AM EDT Office Visit Obstetrics & Gynecology [address] [place] [address] [address] Felice Camacho MD Pelvic and perineal pain (Primary Dx); Irregular menstruation, unspecified; Endometriosis; Family planning 12/14/2023 Travel from Last 3 Months Immunizations Name Administration Dates Next Due Influenza, injectable, quadr ivalent, preservative free, pediatric 01/14/2021 Tdap 11/26/2020 Family History Medical History Relation Name Comments Cardiac disorder Father Hypertension Father Breast cancer Maternal Grandmother Conversions - Other Mother malignan t neoplasm of skin Colon cancer Paternal Grandfather Relation Name Status Comments Father Maternal Grandmother Mother Paternal Grandfather Social History Tobacco Use Types Packs/Day Years Used Date Smoking Tobacco: Every Day Cigarettes Smokeless Tobacco: Never Tobacco Cessation:Ready to Q uit: Not Asked; Counseling Given: Not Answered Alcohol Use Standard Drinks/Week Comments Never 0 (1 standard drink = 0.6 oz pur e alcohol) PHQ-2 Answer Date Recorded Patient Health Questionnaire-2 Score 0 02/09/[address] [place] Depression Scale Answer Date Recorded [place] Depression Scale Total 0 02/18/2021 The thought of harming myself has occurred to me . Never 02/18/2021 Comments No Sex and Gender Information Value Date Recorded Sex Assigned at Not on file Legal Sex Female 8:38 PM EDT Gender Identity Not on file Sexual Orientation Bisexual 01/07/2024 3: 53 PM EDT Last Filed Vital Signs Vital Sign Reading Time Taken Comments Blood Pressure 112/72 02/09/2024 2:03 PM EDT Pulse 86 02/09/2024 2:03 PM EDT Temperature 37.3 ??C (99.1 ??F) 02/09/2024 2:03 PM ED T Respiratory Rate 20 01/22/2024 9:03 AM EDT Oxygen Saturation 100% 01/22/2024 9:03 AM EDT Inhaled Oxygen Concentration - - Weight 56 kg (123 lb 7.3 oz) 02/09/2024 2:03 PM EDT Height 170.2 cm (5' 7 ) 01/22/2024 9:03 AM EDT Body Mass Index 19.34 01/22/2024 9:03 AM EDT Plan of Treatment Upcoming Encounters Date Type Department Care Team (Late st Contact Info) Description 03/25/2024 8:00 AM EST Office Visit Obstetrics & Gynecology [address] [place] [address] Felice Camacho MD [address] [place] [address] 04/05/2024 9:00 AM EST Clinical Support Obstetrics & Gynecology [address] [place] [address] 05/03/2024 9:00 AM EST Clinical Support Obstetrics & Gynecology [address] [place] [address] 05/31/2024 9:00 AM EST Clinical Support Obstetrics & Gynecology [address] [place] [address] 06/28/2024 9:00 AM EST Clinical Support Obstetrics & Gynecology [address] [place] [address] Health Maintenance Due Date Last Done Comments Dental Oral Exam 1993 Dental Prophylaxis 1993 [facility]-Infant/Child/Adol SDOH Screenings 1993 [id number] Vaccine (#1) 1998 [facility]-Pneumococcal Vaccine: Pediatrics (0 to 5 Years) and At-Risk Patients (6 to 64 Years) (1 of 2 - PCV) 11/11/1999 [facility]-Varicella Vaccines (1 of 2 - 13+ 2-dose series) 2006 [facility]- SDOH Screenings 11/11/2011 [facility]-Adult SDOH Screenings 11/11/2011 [facility]-Hepatitis B Vaccines (1 of 3 - 19+ 3-dose series) 2012 [facility]-Zoster Vaccines (1 of 2) 2012 Dental X-Ray: Bitewings 12/01/2017 11/30/2016 Dental X-Ray: Full Mouth 12/02/2019 11/30/2016 [facility]-Influenza Vaccine (#1) 2023 01/14/2021 [facility]-Cervical Cancer Screening 02/19/2024 [facility]-HPV/Cotest 02/19/2024 02/18/2021 [facility]-Pap Smear 02/19/2024 02/18/2021 [facility]-Depression Screening 02/08/2025 02/09/2024, 01/30 [facility]-DTaP,Tdap,and Td Vaccines (2 - Td or Tdap) 11/26/2030 11/26/2020 [facility]-RSV Vaccine: 60+ Years or (1 - 1-dose 75+ series) 2068 [facility]-HIV Screening Completed 12/15/2022, , 10/09/2021, Additional history exists [facility]-Hepatitis C Screening Completed 2022, 10/09/2021, 06/17/2020, Additional history exists [facility]-HIB Vaccines Aged Out No longer e ligible based on patient's age to complete this topic [facility]-HPV Vaccines Aged Out No longer e ligible based on patient's age to complete this topic [facility]-Hepatitis A Vaccines Aged Out No longer eligible based on patient's age to complete this topic [facility]-IPV Vaccines Aged Out No longer e ligible based on patient's age to complete this topic [facility]-Rotavirus Vaccines Aged Out No lo nger eligible based on patient's age to complete this topic Procedures Procedure Name Priority Date/Time Associated Diagnosis Comments , URINE Routine 01/09/2024 8:15 AM EDT US PELVIS TRANSVAGINAL Routine 10:15 AM EDT Pelvic and perineal pain HEPATITIS C ANTIBODY - ED W/REFLEX TO HCV QUANT PCR STAT 12/15/2022 7:17 PM EDT ED PROTOCOL HIV 1/2 ANTIBODY/ANTIGEN SCREEN W/REFLEX TO HIV 1/2 ANTIBODY DIFFERENTIATION STAT 12/15/2022 7:17 PM EDT PAP TEST - CYTOLOGY Routine 02/18/2021 1 2:18 PM EDT Encounter for gynecological examination without abnormal finding INTRAORAL - COMPLETE SERIES OF RADIOGRAPHIC IMAGES Routine 11/30/2016 12:00 AM EDT from Last 3 Months or Most Recently Relevant to Health Maintenance Results * , urine (01/09/2024 8:15 AM EDT) External Urine Test (Hcg) NEGATIVE NEGATIVE [facility] External HCG Urine Lot # [id number] [facility] External HCG Urine Expiration Date 06/21/2024 [facility] External HCG Urine Internal Positive Control OK POSITIVE [facility] 01/09/2024 8:15 AM EDT 01/09/2024 8:17 AM EDT Result Shola Camacho MD LAB URINE ORDERABLES Final Resu lt [facility] * US Pelvis Transvaginal (12/14/2023 10:15 AM EDT) Anatomical Region Laterality Modality Pelvis Ultrasound 12/14/2023 11:1 1 AM EDT Impressions 12/14/2023 1:33 PM EDT The OB Ultrasound you requested has been resulted. Please navigate to the Imaging tab in [employer] for review. This message has been generated by the interface. Narrative Procedure Note Felice Camacho MD - 12/14/2023 IMPRESSION: The OB Ultrasound you requested has been resulted. Please navigate to theImaging tab in [employer] for review. This message has been generated by theinterface. Result Shola Camacho MD IMG US PROCEDURES Final Result * Hepatitis C Antibody - ED (12/15/2022 7:17 PM EDT) Hepatitis C Antibody Negative Negative 12/15/2022 8:13 PM EDT [facility] Blood Venous blood specimen / Unknown Venipuncture / Unknown 12/15/2022 7:17 PM EDT 12/15/2022 7:32 PM EDT us Jeremi Jaramillo MD LAB BLOOD ORDERABLES Final Resu lt [facility] [address] [place] [address] * Pap Smear (02/18/2021 12:18 PM EDT) Case Report Cytology ?Case: [id number] ? Authorizing Provider: ??Claritza Balbuena MD ?? Collected: ? 02/18/2021 1218 ? Ordering Location: ? Obstetrics & Gynecology Received: ?02/19/2021 0811 ? First Screen: ?Shabnam Jiménez, CT ? Specimen: ?ThinPrep Pap Test, Liquid-Based Cervical/Vaginal, CERVICAL/VAGINAL ? 02/23/2021 1:34 PM EDT [facility] Interpretation NEGATIVE FOR INTRAEPITHELIAL LESION OR MALIGNANCY 02/23/2021 1:34 PM EDT [facility] Specimen Adequacy Satisfactory for evaluation; endocervical/johnson sformation zone component present. Slide scanned and imaged by ThinPrep Imaging System with manual review of all selected fournier. 02/23/2021 1:34 PM EDT [facility] Cervical cytology is a screening test primarily for squamous cancers and precursors and has associated false negative and positive results. New technologies such as liquid based sampling may decrease but will not eliminate all false negative results. Regular screening and follow-up of unexplained clinical signs and symptoms are recommended to minimize false negative results. Please see the ASCCP website (www.asccp.org)fo r followup recommendations. If HPV testing was requested, correlation with the results is suggested (please call Microbiology at [phone] for results). 02/23/2021 1:34 PM EDT [facility] Menstrual Status Post- 021 1:34 PM EDT [facility] Contraceptive History Not Applicable 02/23/2021 1:34 PM EDT [facility] Last Menstrual Period 05/06/2020 02/23/2021 1:34 PM EDT [facility] Screening Type Routine Screen 2020 1:34 PM EDT [facility] High Risk? No 02/23/2021 1:34 PM EDT [facility] HPV Testing Requested? Request HPV testing if ASCUS or LSIL. 02/23/2021 1:34 PM EDT [facility] Previous Cancer History No 02/23/2021 1:34 PM EDT [facility] Swab Vaginal and cervical cytologic material / Unknown Non-blood Collection / Unknown 02/18/2021 12:18 PM EDT 02/19/2021 8:11 AM EDT us Claritza Balbuena MD LAB CYTOLOGY ORDERABLES Final Result [facility] [address] [place] [address] from Last 3 Months or Most Recently Relevant to Health Maintenance Insurance [facility] MEDICA[facility] Care Teams Civil Engineering Professor Relationship Specialty Start Date End Date Corina Spence APRN [address] [place] [id number] PCP - General 09/11/20
--- OUTSIDE RECORDS SUMMARY | 2024-03-13 16:27 | XMS_ITS | Encounter Summary ---
Author Organization Healthcare Address [address] [place] [address] Care Team Providers Care Senior Branch Manager Name Role Phone Corina Spence APRN Primary Care Provider +1- [phone] Encounter Details Date Type Department Care Team (Late st Contact Info) Description 03/08/2024 Telephone Obstetrics & Gynecology [address] [place] [address] Felice Camacho MD [address] [place] [address] Social History Tobacco Use Types Packs/Day Years Used Date Smoking Tobacco: Every Day Cigarettes Smokeless Tobacco: Never Alcohol Use Standard Drinks/Week Comments Never 0 (1 standard drink = 0.6 oz pur e alcohol) PHQ-2 Answer Date Recorded Patient Health Questionnaire-2 Score 0 02/09/2024 [place] Depression Scale Answer Date Recorded [place] Depression Scale Total 0 02/18/2021 The thought of harming myself has occurred to me . Never 02/18/2021 Comments No Sex and Gender Information Value Date Recorded Sex Assigned at Not on file Legal Sex Female 8:38 PM EDT Gender Identity Not on file Sexual Orientation Bisexual 01/07/2024 3: 53 PM EDT documented as of this encounter Miscellaneous Notes * Telephone Encounter - Ivana Stevensdominick Meng - 03/08/2024 8:15 AM EST Pt notified to come by once she picker box operator her injection from the pharmacy pt vu * Telephone Encounter - Mari Jimenez - 03/08/2024 7:53 AM EST Clinical Concern/Question Reason for Call: Pt is calling stating she did not get the Lupron injection medication yesterday. The pharmacy does not open until 9am this morning she will go when the pharmacy opens and get the medication and bring it when she can. She can be here after that? Pt is needing to know what to do as far as should she come today or r/s to a different day? Please call to discuss. Best contact number: [phone] (mobile) Optimal time of day to reach caller: ANYTIME Additional comments/information from caller: Not Applicable Note: Please do not reply to this message. Follow-up communication and further actions as a result of this message need to be communicated with the patient directly, if the patient is not active onMyChart. If the patient is active on MyChart, they will receive notification of the communication/outcome via [employer]. documented in this encounter Plan of Treatment Upcoming Encounters Date Type Department Care Team (Late st Contact Info) Description 03/25/2024 8:00 AM EST Office Visit Obstetrics & Gynecology [address] [place] [address] Felice Camacho MD [address] [place] [address] 04/05/2024 9:00 AM EST Clinical Support Obstetrics & Gynecology [address] [place] [address] 05/03/2024 9:00 AM EST Clinical Support Obstetrics & Gynecology [address] [place] [address] 05/31/2024 9:00 AM EST Clinical Support Obstetrics & Gynecology [address] [place] [address] 06/28/2024 9:00 AM [facility] Clinical Support Obstetrics & Gynecology [address] [facility] [place] [address] documented as of this encounter Visit Diagnoses Not on filedocumented in this encounter Additional Health Concerns Assessment Noted Time A fall risk assessment has been complete d for the patient 02/09/2024 2:04 PM EDT A Body Mass Index follow-up plan has been documented for the patient 02/09/2024 2:27 PM EDT documented as of this encounter Care Teams Senior Branch Manager Relationship Specialty Start Date End Date Corina Spence APRN [facility] [place] [address] PCP - General 09/11/20 documented as of this encounter
--- OUTSIDE RECORDS SUMMARY | 2024-03-13 16:27 | XMS_ITS | Encounter Summary ---
Author Organization Healthcare Address [address] [place] [address] Care Team Providers Care Nutrition Intern Name Role Phone Corina Spence APRN Primary Care Provider +1- [phone] Encounter Details Date Type Department Care Team (Latest Contact Info) Description 01/22/2024 Travel Social History Tobacco Use Types Packs/Day Years Used Date Smoking Tobacco: Every Day Cigarettes Smokeless Tobacco: Never Alcohol Use Standard Drinks/Week Comments Never 0 (1 standard drink = 0.6 oz pur e alcohol) PHQ-2 Answer Date Recorded Patient Health Questionnaire-2 Score 0 01/22/2024 [place] Depression Scale Answer Date Recorded [place] Depression Scale Total 0 02/18/2021 The thought of harming myself has occurred to me . Never 02/18/2021 Comments No Sex and Gender Information Value Date Recorded Sex Assigned at Not on file Legal Sex Female 8:38 PM EDT Gender Identity Not on file Sexual Orientation Bisexual 01/07/2024 3: 53 PM EDT documented as of this encounter Plan of Treatment Upcoming Encounters Date Type Department Care Team (Late st Contact Info) Description 03/25/2024 8:00 AM EST Office Visit Obstetrics & Gynecology [address] [place] [address] Felice Camacho MD [address] [place] [address] 04/05/2024 9:00 AM EST Clinical Support Obstetrics & Gynecology [address] [place] [address] 05/03/2024 9:00 AM EST Clinical Support Obstetrics & Gynecology [address] [place] [address] 05/31/2024 9:00 AM EST Clinical Support Obstetrics & Gynecology [address] [place] [address] 06/28/2024 9:00 AM EST Clinical Support Obstetrics & Gynecology [address] [place] [address] documented as of this encounter Visit Diagnoses Not on filedocumented in this encounter Additional Health Concerns Assessment Noted Time A fall risk assessment has been complete d for the patient 01/22/2024 9:05 AM EDT A Body Mass Index follow-up plan has been documented for the patient 01/22/2024 9:21 AM EDT documented as of this encounter Care Teams Nutrition Intern Relationship Specialty Start Date End Date Corina Spence APRN [facility] [place] [id number] PCP - General 09/11/20 documented as of this encounter
--- OUTSIDE RECORDS SUMMARY | 2024-03-13 16:27 | XMS_ITS | Encounter Summary ---
Author Organization Healthcare Address [address] [place] [address] Care Team Providers Care Script Developer Name Role Phone Corina Spence APRN Primary Care Provider +1- [phone] Encounter Details Date Type Department Care Team (Late st Contact Info) Description 02/07/2024 Telephone Obstetrics & Gynecology [address] [place] [address] Autumn Nix RN ```````````````````````` ````HOSP. OBSTETRICS, POST Social History Tobacco Use Types Packs/Day Years Used Date Smoking Tobacco: Every Day Cigarettes Smokeless Tobacco: Never Alcohol Use Standard Drinks/Week Comments Never 0 (1 standard drink = 0.6 oz pur e alcohol) PHQ-2 Answer Date Recorded Patient Health Questionnaire-2 Score 0 01/22/2024 [place] Depression Scale Answer Date Recorded [place] Depression Scale Total 0 02/18/2021 The thought of harming myself has occurred to me . Never 02/18/2021 Comments No Sex and Gender Information Value Date Recorded Sex Assigned at Not on file Legal Sex Female 8:38 PM EDT Gender Identity Not on file Sexual Orientation Bisexual 01/07/2024 3: 53 PM EDT documented as of this encounter Miscellaneous Notes * Telephone Encounter - Autumn Nix RN - 02/07/2024 1:44 PM EDT [facility] Camacho asking RN to check in on pt due to missing post op appt on 02/07/24. MD states he sent in Lupron and asked RN to check in on her and see if she had began the medication yet and that the medication needed to be started soon/ALVARO. RN called pt on behalf of Dr. Camacho and due to missing post op appt today in clinic and for medication. Pt rescheduled appt for Monday. 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 Pt is about to start PT for hip inhingement. Pt states with the surgery all went well but she was allergic to surgicalglue and had blisters. Pt states she peeled the glue off and is now better but still has a knot on the side of scar and scar is darker in color. Denies S&S of infection. Pt received medication (Lupron) today with all supplies to give at home from pharmacy. Pt states she has given her self IM injection before due to taking Vit. B12 injections, but would like to be reminded of how to do it. RN looked at lupron orders that stated to inject 3.75mg into the muscle one time for one dose and repeat monthly for 6 months. RN educated her on how to do IM injections and pt stated she will be starting them today when gets back from work. After consulting further with , RN was made aware that it is a medication that is given in clinic. RN left detailed message on machine stating to not give medication and we will give it on clinic on Monday as well as has sent pt mychart message stating to not give and bring to appt on Monday. Pt returned message and stated that she has not given medication and will bring to appt on Monday. documented in this encounter Plan of Treatment Upcoming Encounters Date Type Department Care Team (Late st Contact Info) Description 03/25/2024 8:00 AM EST Office Visit Obstetrics & Gynecology [address] [place] [address] Felice Camacho MD [address] [place] [address] 04/05/2024 9:00 AM EST Clinical Support Obstetrics & Gynecology [address] [place] [address] 05/03/2024 9:00 AM EST Clinical Support Obstetrics & Gynecology [address] [place] [address] 05/31/2024 9:00 AM EST Clinical Support Obstetrics & Gynecology [address] [place] [address] 06/28/2024 9:00 AM EST Clinical Support Obstetrics & Gynecology [address] [place] [address] documented as of this encounter Visit Diagnoses Not on filedocumented in this encounter Additional Health Concerns Assessment Noted Time A fall risk assessment has been complete d for the patient 01/22/2024 9:05 AM EDT A Body Mass Index follow-up plan has been documented for the patient 01/22/2024 9:21 AM EDT documented as of this encounter Care Teams Script Developer Relationship Specialty Start Date End Date Corina Spence APRN [address] [place] [id number] PCP - General 09/11/20 documented as of this encounter
--- OUTSIDE RECORDS SUMMARY | 2024-03-13 16:27 | XMS_ITS | Encounter Summary ---
Author Organization Healthcare Address [address] [place] [address] Care Team Providers Care Publications Editor Name Role Phone Corina Spence APRN Primary Care Provider +1- [phone] Encounter Details Date Type Department Care Team (Latest Contact Info) Description 02/09/2024 Travel Social History Tobacco Use Types Packs/Day Years Used Date Smoking Tobacco: Every Day Cigarettes Smokeless Tobacco: Never Alcohol Use Standard Drinks/Week Comments Never 0 (1 standard drink = 0.6 oz pur e alcohol) PHQ-2 Answer Date Recorded Patient Health Questionnaire-2 Score 0 02/09/2024 [place] Depression Scale Answer Date Recorded [place] Depression Scale Total 0 02/18/2021 The thought [...] Visit Obstetrics & Gynecology [address] [place] [address] Felice Camacho MD [address] [place] [address] 04/05/2024 9:00 AM EST Clinical Support Obstetrics & Gynecology [address] [place] [address] 05/03/2024 9:00 AM EST Clinical Support Obstetrics & Gynecology [address] [place] [address] 05/31/2024 9:00 AM EST Clinical Support Obstetrics & Gynecology [address] [place] [address] 06/28/2024 9:00 AM EST Clinical Support Obstetrics & Gynecology [address] [place] [address] documented as of this encounter Visit Diagnoses Not on filedocumented in this encounter Additional Health Concerns Assessment Noted Time A fall risk assessment has been complete d for the patient 02/09/2024 2:04 PM EDT A Body Mass Index follow-up plan has been documented for the patient 02/09/2024 2:27 PM EDT documented as of this encounter Care Teams Publications Editor Relationship Specialty Start Date End Date Corina Spence APRN [facility] [place] [id number] PCP - General 09/11/20 documented as of this encounter
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
--- OUTSIDE RECORDS SUMMARY | 2024-03-13 16:28 | XMS_ITS | Encounter Summary ---
Author Organization Healthcare Address [address] [place] [address] Care Team Providers Care Podiatry Teacher Name Role Phone Corina Spence APRN Primary Care Provider [phone] Unavailable [phone] Encounter Details Date Type Department Care Team (Latest Contact Info) Description 12/14/2023 Travel Social History Tobacco Use Types Packs/Day Years Used Date Smoking Tobacco: Every Day Cigarettes Smokeless Tobacco: Never Alcohol Use Standard Drinks/Week Comments Never 0 (1 standard drink = 0.6 oz pur e alcohol) PHQ-2 Answer Date Recorded Patient Health Questionnaire-2 Score 0 12/06/2023 [place] Depression Scale Answer Date Recorded [place] Depression Scale Total 0 02/18/2021 The thought [...] EST Office Visit Obstetrics & Gynecology [address] [place] [address] Felice Camacho MD [address] [place] [address] 04/05/2024 9:00 AM EST Clinical Support Obstetrics & Gynecology [address] [place] [address] 05/03/2024 9:00 AM EST Clinical Support Obstetrics & Gynecology [address] [place] [address] 05/31/2024 9:00 AM EST Clinical Support Obstetrics & Gynecology [address] [place] [address] 06/28/2024 9:00 AM EST Clinical Support Obstetrics & Gynecology [address] [place] [address] documented as of this encounter Visit Diagnoses Not on filedocumented in this encounter Additional Health Concerns Assessment Noted Time A fall risk assessment has been complete d for the patient 12/06/2023 2:31 PM EDT A Body Mass Index follow-up plan has been documented for the patient 12/14/2023 1:35 PM EDT documented as of this encounter Care Teams Podiatry Teacher Relationship Specialty Start Date End Date Corina Spence, INFORMATION STRATEGIST [facility] [place] [id number] PCP - General 09/11/[address] [address] Heat Set Operator Dietitian 11/24/20 01/11/24 documented as of this encounter
--- OUTSIDE RECORDS SUMMARY | 2024-03-13 16:28 | XMS_ITS | Encounter Summary ---
Author Organization Healthcare Address [address] [place] [address] Care Team Providers Care Tie In Hand Name Role Phone Corina Spence APRN Primary Care Provider [phone] Unavailable [phone] Reason for Visit * Reason Comments Procedure Due for nexplanon re placement. Encounter Details Date Type Department Care Team (Late st Contact Info) Description 09/01/2023 2:00 PM EDT Procedure Visit Obstetrics & Gynecology [address] [place] [address] Felice Camacho MD [address] [place] [address] Family planning (Primary Dx) Social History Tobacco Use Types Packs/Day Years Used Date Smoking Tobacco: Every Day Cigarettes Smokeless Tobacco: Never Tobacco Cessation:Ready to Q uit: Not Asked; Counseling Given: Not Answered Alcohol Use Standard Drinks/Week Comments Never 0 (1 standard drink = 0.6 oz pur e alcohol) PHQ-2 Answer Date Recorded Patient Health Questionnaire-2 Score 0 09/01/2023 [place] Depression Scale Answer Date Recorded [place] Depression Scale Total 0 02/18/2021 The thought [...] Sign Reading Time Taken Comments Blood Pressure 124/85 09/01/2023 2:12 PM EDT Pulse 78 09/01/2023 2:12 PM EDT Temperature 36.8 ??C (98.2 ??F) 09/01/2023 2:12 PM ED T Respiratory Rate 17 09/01/2023 2:12 PM EDT Oxygen Saturation 99% 09/01/2023 2:12 PM EDT Inhaled Oxygen Concentration - - Weight 59.8 kg (131 lb 13.4 oz) 09/01/2023 2:12 PM EDT Height - - Body Mass Index 20.65 12/15/2022 6:34 PM EDT documented in this encounter Miscellaneous Notes * Progress Notes - Felice Camacho MD - 09/01/2023 2:00 PM EDT Gynecology Progress Note Subjective 27 yo ( x 3) - has Nexplanon - 02/18/2021 - same as last Pap - here to discuss FP. LikesNexplanon - desires exchange at proper time. Review of Systems Constitutional: Negative. HENT: Negative. Eyes: Negative. Respiratory: Negative. Cardiovascular: Negative. Gastrointestinal: Negative. Endocrine: Negative. Genitourinary: Negative. Musculoskeletal: Negative. Skin: Negative. Allergic/Immunologic: Negative. Neurological: Negative. Hematological: Negative. Psychiatric/Behavioral: Negative. All other systems reviewed and are negative. Objective Visit Vitals BP 124/85 Pulse 78 Temp 36.8 ??C (98.2 ??F) Resp 17 Physical Exam Constitutional: Appearance: Normal appearance. She is normal weight. HENT: Head: Normocephalic and atraumatic. Right Ear: External ear normal. Left Ear: External ear normal. Pulmonary: Effort: Pulmonary effort is normal. Musculoskeletal: General: Normal range of motion. Cervical back: Normal range of motion. Neurological: General: No focal deficit present. Mental Status: She is alert and oriented to person, place, and time. Skin: General: Skin is warm and dry. Psychiatric: Mood and Affect: Mood normal. Behavior: Behavior normal. Thought Content: Thought content normal. Judgment: Judgment normal. Vitals and nursing note reviewed. Pap reviewed Nexplanon insertion note reviewed Assessment/Plan Assess/Plan SmartLinks: Diagnoses and all orders for this visit: Family planning Schedule WWE + Nexplanon Exchange 02/19/2024 A total of 20 minutes was spent [...] EST Office Visit Obstetrics & Gynecology [address] [place] [address] Felice Camacho MD [address] [address] 04/05/2024 9:00 AM EST Clinical Support Obstetrics & Gynecology [address] [place] [address] 05/03/2024 9:00 AM EST Clinical Support Obstetrics & Gynecology [address] [place] [address] 05/31/2024 9:00 AM EST Clinical Support Obstetrics & Gynecology [address] [place] [place] [address] 06/28/2024 9:00 AM EST Clinical Support Obstetrics & Gynecology [address] [place] [address] documented as of this encounter Visit Diagnoses Diagnosis Family planning- Primary Other general counseling and advice for contraceptive management documented in this encounter Additional Health Concerns Assessment Noted Time A fall risk assessment has been complete d for the patient 09/01/2023 2:13 PM EDT A Body Mass Index follow-up plan has been documented for the patient 09/01/2023 2:33 PM EDT documented as of this encounter Care Teams Tie In Hand Relationship Specialty Start Date End Date Corina Spence APRN [address] [place] [address] PCP - General 09/11/[address] [address] Carbon Rod Inserter Dietitian 11/24/20 01/11/24 documented as of this encounter
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
--- OUTSIDE RECORDS SUMMARY | 2024-03-13 16:28 | XMS_ITS | Encounter Summary ---
Author Organization Healthcare Address [address] [place] [address] Care Team Providers Care Patient Scheduling Coordinator Name Role Phone Corina Spence APRN Primary Care Provider [phone]- [phone] Unavailable [phone] Encounter Details Date Type Department Care Team (Latest Contact Info) Description 09/01/2023 Travel Social History Tobacco Use Types Packs/Day Years Used Date Smoking Tobacco: Every Day Cigarettes Smokeless Tobacco: Never Alcohol Use Standard Drinks/Week Comments Never 0 (1 standard drink = 0.6 oz pur e alcohol) PHQ-2 Answer Date Recorded Patient Health Questionnaire-2 Score 0 09/01/2023 [place] Depression Scale Answer Date Recorded [place] Depression Scale Total 0 02/18/2021 The thought [...] EST Office Visit Obstetrics & Gynecology [address] [place] [address] Felice Camacho MD [address] [place] [address] 04/05/2024 9:00 AM EST Clinical Support Obstetrics & Gynecology [address] [place] [address] 05/03/2024 9:00 AM EST Clinical Support Obstetrics & Gynecology [address] [place] [address] 05/31/2024 9:00 AM EST Clinical Support Obstetrics & Gynecology [address] [place] [address] 06/28/2024 9:00 AM EST Clinical Support Obstetrics & Gynecology [address] [place] [address] documented as of this encounter Visit Diagnoses Not on filedocumented in this encounter Additional Health Concerns Assessment Noted Time A fall risk assessment has been complete d for the patient 09/01/2023 2:13 PM EDT A Body Mass Index follow-up plan has been documented for the patient 09/01/2023 2:33 PM EDT documented as of this encounter Care Teams Patient Scheduling Coordinator Relationship Specialty Start Date End Date Corina Spence, CERAMIC TILE INSTALLER [facility] [place] [id number] PCP - General 09/11/[address] [address] Strategic Sourcing Specialist Dietitian 11/24/20 01/11/24 documented as of this encounter
--- OUTSIDE RECORDS SUMMARY | 2024-03-13 16:28 | XMS_ITS | Encounter Summary ---
Author Organization Healthcare Address [address] [place] [address] Care Team Providers Care Theatrical Performer Name Role Phone Corina Spence APRN Primary Care Provider [phone]- [phone] Unavailable [phone] Encounter Details Date Type Department Care Team (Latest Contact Info) Description 01/07/2024 Travel Social History Tobacco Use Types Packs/Day Years Used Date Smoking Tobacco: Every Day Cigarettes Smokeless Tobacco: Never Alcohol Use Standard Drinks/Week Comments Never 0 (1 standard drink = 0.6 oz pur e alcohol) PHQ-2 Answer Date Recorded Patient Health Questionnaire-2 Score 0 01/08/2024 [place] Depression Scale Answer Date Recorded [place] Depression Scale Total 0 02/18/2021 The thought [...] EST Office Visit Obstetrics & Gynecology [address] [place] [address] Felice Camacho MD [address] [place] [address] 04/05/2024 9:00 AM EST Clinical Support Obstetrics & Gynecology [address] [place] [address] 05/03/2024 9:00 AM EST Clinical Support Obstetrics & Gynecology [address] [place] [address] 05/31/2024 9:00 AM EST Clinical Support Obstetrics & Gynecology [address] [place] [address] 06/28/2024 9:00 AM EST Clinical Support Obstetrics & Gynecology [address] [place] [address] documented as of this encounter Visit Diagnoses Not on filedocumented in this encounter Additional Health Concerns Assessment Noted Time A fall risk assessment has been complete d for the patient 12/06/2023 2:31 PM EDT A Body Mass Index follow-up plan has been documented for the patient 12/14/2023 1:35 PM EDT documented as of this encounter Care Teams Theatrical Performer Relationship Specialty Start Date End Date Corina Spence, NATURAL HISTORY COLLECTIONS CURATOR [facility]0 [place] [id number] PCP - General 09/11/[address] [address] Fermenter Dietitian 11/24/20 01/11/24 documented as of this encounter
--- OUTSIDE RECORDS SUMMARY | 2024-03-13 16:28 | XMS_ITS | Encounter Summary ---
Author Organization Healthcare Address [address] [place] [address] Care Team Providers Care Splitting Machine Operator Helper Name Role Phone Corina Spence APRN Primary Care Provider [phone]- [phone] Unavailable [phone] Encounter Details Date Type Department Care Team (Late Contact Info) Description 01/09/2024 Orders Only External Location [address] [place] [address] Felice Camacho MD [address] [place] [address] Social History Tobacco Use Types Packs/Day Years Used Date Smoking Tobacco: Every Day Cigarettes Smokeless Tobacco: Never Alcohol Use Standard Drinks/Week Comments Never 0 (1 standard drink = 0.6 oz pur e alcohol) PHQ-2 Answer Date Recorded Patient Health Questionnaire-2 Score 0 01/08/2024 [place] Depression Scale Answer Date Recorded [place] Depression Scale Total 0 02/18/2021 The thought [...] Encounters Date Type Department Care Team (Late Contact Info) Description 03/25/2024 8:00 AM EST Office Visit Obstetrics & Gynecology [address] [place] [address] Felice Camacho MD [address] [place] [address] 04/05/2024 9:00 AM EST Clinical Support Obstetrics & Gynecology [address] [place] [address] 05/03/2024 9:00 AM EST Clinical Support Obstetrics & Gynecology [address] [place] [address] 05/31/2024 9:00 AM EST Clinical Support Obstetrics & Gynecology [place] [place] [address] 06/28/2024 9:00 AM EST Clinical Support Obstetrics [place] [address] documented as of this encounter Procedures Procedure Name Priority Date/Time Associated Diagnosis Comments , URINE Routine 01/09/2024 8:15 AM EDT documented in this encounter Results * , urine (01/09/2024 8:15 AM EDT) External Urine Test (Hcg) NEGATIVE NEGATIVE [facility] External HCG Urine Lot # [id number] [facility] External HCG Urine Expiration Date 06/21/2024 [facility] External HCG Urine Internal Positive Control OK POSITIVE [facility] 01/09/2024 8:15 AM EDT 01/09/2024 8:17 AM EDT us Felice Camacho MD LAB URINE ORDERABLES Final Resu lt [facility] documented in this encounter Visit Diagnoses Not on filedocumented in this encounter Additional Health Concerns Assessment Noted Time A fall risk assessment has been complete d for the patient 01/08/2024 10:56 AM EDT A Body Mass Index follow-up plan has been documented for the patient 01/08/2024 11:08 AM EDT documented as of this encounter Care Teams Splitting Machine Operator Helper Relationship Specialty Start Date End Date Corina Spence APRN [address] [place] [address] PCP - General 09/11/[address] [address] Rod Puller And Coiler Dietitian 11/24/20 01/11/24 documented as of this encounter
--- OUTSIDE RECORDS SUMMARY | 2024-03-13 16:28 | XMS_ITS | Encounter Summary ---
Author Organization Healthcare Address [address] [place] [address] Care Team Providers Care Wire Spring Relay Adjuster Name Role Phone Corina Spence APRN Primary Care Provider [phone]- [phone] Encounter Details Date Type Department Care Team (Late st Contact Info) Description 01/12/2024 Telephone Obstetrics & Gynecology [address] [place] [address] Felice Camacho MD [address] [place] [address] Social History Tobacco Use Types Packs/Day Years Used Date Smoking Tobacco: Every Day Cigarettes Smokeless Tobacco: Never Alcohol Use Standard Drinks/Week Comments Never 0 (1 standard drink = 0.6 oz pur e alcohol) PHQ-2 Answer Date Recorded Patient Health Questionnaire-2 Score 0 02/09/2024 [place] Depression Scale Answer Date Recorded [place] Depression Scale Total 0 02/18/2021 The thought of harming myself has occurred to me . Never 02/18/2021 Comments No Sex and Gender Information Value Date Recorded Sex Assigned at Not on file Legal Sex Female 8:38 PM EDT Gender Identity Not on file Sexual Orientation Bisexual 01/07/2024 3: 53 PM EDT documented as of this encounter Miscellaneous Notes * Telephone Encounter - Lesa Henley - 01/12/2024 8:15 AM EDT Called pt she is going to send a picture via my chart * Telephone Encounter - Rozina Chang - 01/12/2024 8:12 AM EDT Clinical Concern/Question Reason for Call: Pt had surgery on 01/08 and her incision is red, blistering, warm to the touch, swollen. Thinks she is reacting to the glue. Please call. Best contact number: [phone] (mobile) Optimal time of day to reach caller: ANYTIME Additional comments/information from caller: None Note: Please do not reply to this message. Follow-up communication and further actions as a result of this message need to be communicated with the patient directly, if the patient is not active onMyChart. If the patient is active on MyChart, they will receive notification of the communication/outcome via MyChart. documented in this encounter Plan of Treatment Upcoming Encounters Date Type Department Care Team (Late st Contact Info) Description 03/25/2024 8:00 AM EST Office Visit Obstetrics & Gynecology [address] [place] [address] Felice Camacho MD [address] [place] [address] 04/05/2024 9:00 AM EST Clinical Support Obstetrics & Gynecology [address] [place] [address] 05/03/2024 9:00 AM EST Clinical Support Obstetrics & Gynecology [address] [place] [address] 05/31/2024 9:00 AM EST Clinical Support Obstetrics & Gynecology [address] [place] [address] 06/28/2024 9:00 AM EST Clinical Support Obstetrics & Gynecology [address] [place] [address] documented as of this encounter Visit Diagnoses Not on filedocumented in this encounter Additional Health Concerns Assessment Noted Time A fall risk assessment has been complete d for the patient 01/08/2024 10:56 AM EDT A Body Mass Index follow-up plan has been documented for the patient 01/08/2024 11:08 AM EDT documented as of this encounter Care Teams Wire Spring Relay Adjuster Relationship Specialty Start Date End Date Corina Spence APRN [address] [place], [place] [id number] PCP - General 09/11/20 documented as of this encounter
--- OUTSIDE RECORDS SUMMARY | 2024-03-13 16:28 | XMS_ITS | Encounter Summary ---
Author Organization Healthcare Address [address] [place] [address] Care Team Providers Care Iron Molder Helper Name Role Phone Corina Spence APRN Primary Care Provider [phone]- [phone] Unavailable [phone] Encounter Details Date Type Department Care Team (Latest Contact Info) Description 12/14/2023 10:20 AM EDT Ancillary Procedure Obstetrics & Gynecology [address] [place] [address] Pelvic and perineal pain Social History Tobacco Use Types Packs/Day Years Used Date Smoking Tobacco: Every Day Cigarettes Smokeless Tobacco: Never Alcohol Use Standard Drinks/Week Comments Never 0 (1 standard drink = 0.6 oz pur e alcohol) PHQ-2 Answer Date Recorded Patient Health Questionnaire-2 Score 0 12/06/2023 [place] Depression Scale Answer Date Recorded [place] Depression Scale Total 0 02/18/2021 The thought [...] EST Office Visit Obstetrics & Gynecology [address] [place] [address] Felice Camacho MD [address] [place] [address] [address] 04/05/2024 9:00 AM EST Clinical Support Obstetrics [place] [address] [address] 05/03/2024 9:00 AM EST Clinical Support Obstetrics [place] [address] [address] 05/31/2024 9:00 AM EST Clinical Support Obstetrics [facility] [place] [address] [address] 06/28/2024 9:00 AM EST Clinical Support Obstetrics [facility] [place] [address] [address] documented as of this encounter Procedures Procedure Name Priority Date/Time Associated Diagnosis Comments US PELVIS TRANSVAGINAL Routine 12/14/2023 10:15 AM EDT Pelvic and perineal pain documented in this encounter Results * US Pelvis Transvaginal (12/14/2023 10:15 AM EDT) Anatomical Region Laterality Modality Pelvis Ultrasound 12/14/2023 11:1 1 AM EDT Impressions 12/14/2023 1:33 PM EDT The OB Ultrasound you requested has been resulted. Please navigate to the Imaging tab in [employer] for review. This message has been generated by the interface. Narrative Procedure Note Felice Camacho MD - 12/14/2023 IMPRESSION: The OB Ultrasound you requested has been resulted. Please navigate to theImaging tab in [employer] for review. This message has been generated by theinterface. us Felice Camacho MD IMG US PROCEDURES Final Result documented in this encounter Visit Diagnoses Diagnosis Pelvic and perineal pain documented in this encounter Additional Health Concerns Assessment Noted Time A fall risk assessment has been complete d for the patient 12/06/2023 2:31 PM EDT A Body Mass Index follow-up plan has been documented for the patient 12/14/2023 1:35 PM EDT documented as of this encounter Care Teams Iron Molder Helper Relationship Specialty Start Date End Date Corina Spence APRN [address] [place] [address] PCP - General 09/11/[address] [address] Data Technical Lead Dietitian 11/24/20 01/11/24 documented as of this encounter
--- OUTSIDE RECORDS SUMMARY | 2024-03-13 16:28 | XMS_ITS | Encounter Summary ---
Author Organization Healthcare Address [address] [place] [address] Care Team Providers Care Six Sigma Black Belt Engineer Name Role Phone Corina Spence APRN Primary Care Provider [phone]- [phone] Unavailable [phone] Encounter Details Date Type Department Care Team (Latest Contact Info) Description 11/27/2023 Travel Social History Tobacco Use Types Packs/Day Years Used Date Smoking Tobacco: Every Day Cigarettes Smokeless Tobacco: Never Alcohol Use Standard Drinks/Week Comments Never 0 (1 standard drink = 0.6 oz pur e alcohol) PHQ-2 Answer Date Recorded Patient Health Questionnaire-2 Score 0 11/27/2023 [place] Depression Scale Answer Date Recorded [place] Depression Scale Total 0 02/18/2021 The thought [...] EST Office Visit Obstetrics & Gynecology [address] [place] [address] Felice Camacho MD [address] [place] [address] 04/05/2024 9:00 AM EST Clinical Support Obstetrics & Gynecology [address] [place] [address] 05/03/2024 9:00 AM EST Clinical Support Obstetrics & Gynecology [address] [place] [address] 05/31/2024 9:00 AM EST Clinical Support Obstetrics & Gynecology [address] [place] [address] 06/28/2024 9:00 AM EST Clinical Support Obstetrics & Gynecology [address] [place] [address] documented as of this encounter Visit Diagnoses Not on filedocumented in this encounter Additional Health Concerns Assessment Noted Time A fall risk assessment has been complete d for the patient 11/27/2023 1:11 PM EDT A Body Mass Index follow-up plan has been documented for the patient 11/27/2023 1:24 PM EDT documented as of this encounter Care Teams Six Sigma Black Belt Engineer Relationship Specialty Start Date End Date Corina Spence, CLOTH REELER [facility]0 [place] [id number] PCP - General 09/11/[address] [place] [address] Accountant Cost Dietitian 11/24/20 01/11/24 documented as of this encounter
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
--- OUTSIDE RECORDS SUMMARY | 2024-03-13 16:28 | XMS_ITS | Encounter Summary ---
Author Organization Healthcare Address [address] [place] [address] Care Team Providers Care Box Strapper Name Role Phone Corina Spence APRN Primary Care Provider [phone]- [phone] Unavailable [phone] Encounter Details Date Type Department Care Team (Latest Contact Info) Description 04/12/2021 Travel Social History Tobacco Use Types Packs/Day Years Used Date Smoking Tobacco: Never Smokeless Tobacco: Never Alcohol Use Standard Drinks/Week Comments Never 0 (1 standard drink = 0.6 oz pur e alcohol) [place] Depression Scale Answer Date Recorded [place] Depression Scale Total 0 02/18/2021 The thought of harming myself has occurred to me . Never 02/18/2021 Comments No Sex and Gender Information Value Date Recorded Sex Assigned at Not on file Legal Sex Female 8:38 PM EDT Gender Identity Not on file Sexual Orientation Bisexual 01/07/2024 3: 53 PM EDT COVID-19 Exposure Response Date Recorded In the last month, have you been in contact with someone who was confirmed or suspected to have Coronavirus / COVID-19? No / Unsure 04/12/2021 4:29 PM EST documented as of this encounter Plan of Treatment Upcoming Encounters Date Type Department Care Team (Late st Contact Info) Description 03/25/2024 8:00 AM EST Office Visit Obstetrics & Gynecology [address] [place] [address] Felice Camacho MD [address] [place] [address] 04/05/2024 9:00 AM EST Clinical Support Obstetrics & Gynecology [address] [place] [address] 05/03/2024 9:00 AM EST Clinical Support Obstetrics & Gynecology [address] [place] [address] 05/31/2024 9:00 AM EST Clinical Support Obstetrics & Gynecology [address] [place] [address] 06/28/2024 9:00 AM EST Clinical Support Obstetrics & Gynecology [address] [place] [address] documented as of this encounter Visit Diagnoses Not on filedocumented in this encounter Care Teams Box Strapper Relationship Specialty Start Date End Date Corina Spence APRN [facility] [place] [address] PCP - General 09/11/[address] [place] [address] [address] All Around Gear Machine Operator Dietitian 11/24/20 01/11/24 documented as of this encounter
--- OUTSIDE RECORDS SUMMARY | 2024-03-13 16:28 | XMS_ITS | Encounter Summary ---
Author Organization Healthcare Address [address] [place] [address] Care Team Providers Care Photonics Engineering Technologist Name Role Phone Corina Spence APRN Primary Care Provider [phone] Unavailable [phone] Encounter Details Date Type Department Care Team (Latest Contact Info) Description 01/08/2024 Travel Social History Tobacco Use Types Packs/Day Years Used Date Smoking Tobacco: Every Day Cigarettes Smokeless Tobacco: Never Alcohol Use Standard Drinks/Week Comments Never 0 (1 standard drink = 0.6 oz pur e alcohol) PHQ-2 Answer Date Recorded Patient Health Questionnaire-2 Score 0 01/08/2024 [place] Depression Scale Answer Date Recorded [place] Depression Scale Total 0 02/18/2021 The thought [...] Visit Obstetrics & Gynecology [address] [place] [address] Felice Camacho MD [address] [place] [address] 04/05/2024 9:00 AM EST Clinical Support Obstetrics & Gynecology [address] [place] [address] 05/03/2024 9:00 AM EST Clinical Support Obstetrics & Gynecology [address] [place] [address] 05/31/2024 9:00 AM EST Clinical Support Obstetrics & Gynecology [address] [place] [address] 06/28/2024 9:00 AM EST Clinical Support Obstetrics & Gynecology [address] [place] [address] documented as of this encounter Visit Diagnoses Not on filedocumented in this encounter Additional Health Concerns Assessment Noted Time A fall risk assessment has been complete d for the patient 01/08/2024 10:56 AM EDT A Body Mass Index follow-up plan has been documented for the patient 01/08/2024 11:08 AM EDT documented as of this encounter Care Teams Photonics Engineering Technologist Relationship Specialty Start Date End Date Corina Spence, BAG MACHINE OPERATOR [facility] [place] [phone] PCP - General 09/11/[address] [address] Quality Analyst/Technical Writer Dietitian 11/24/20 01/11/24 documented as of this encounter
--- OUTSIDE RECORDS SUMMARY | 2024-03-13 16:28 | XMS_ITS | Encounter Summary ---
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 12/15/2022 8:23 PM EDT [facility] Sodium, Plasma 138 136 - 145 mmol/L 12/15/2022 8:23 PM EDT [facility] Potassium, Plasma 3.6(L) 3.7 - 4.8 mmol/L 12/15/2022 8:23 PM EDT [facility] Chloride, Plasma 99 97 - 107 mmol/L 12/15/2022 8:23 PM EDT [facility] CO2, Plasma 25 22 - 29 mmol/L 12/15/2022 8:23 PM EDT [facility] Anion Gap 14 6 - 16 mmol/L 12/15/2022 8:23 PM EDT [facility] Total Calcium, Plasma 9.9 8.9 - 10.2 mg/dL 12/15/2022 8:23 PM EDT [facility] Total Protein 7.9 6.3 - 7.9 g/dL 12/15/2022 8:23 PM EDT [facility] Albumin, Plasma 5.2 3.5 - 5.2 g/dL 12/15/2022 8:23 PM EDT [facility] AST, Plasma 19 11 - 32 U/L 12/15/2022 8:23 PM EDT [facility] ALT, Plasma 14 8 - 33 U/L 12/15/2022 8:23 PM EDT [facility] Alkaline Phosphatase, Plasma 35 35 - 104 U/L 12/15/2022 8:23 PM EDT [facility] Total Bilirubin, Plasma 0.3 0.2 - 1.1 mg/dL 12/15/2022 8:23 PM EDT [facility] eGFRcr 78.4 mL/min/1.7 3m*2 12/15/2022 8:23 PM [facility] Comment:Reported eGFRcr in m L/min/1.73m2 is based the CKD-EPI 2020 equation that does not use a race coefficient. Blood Venous blood specimen / Unknown Venipuncture / Unknown 12/15/2022 7:17 PM EDT 12/15/2022 7:28 PM EDT us Jeremi Jaramillo MD LAB BLOOD ORDERABLES Final [facility] [address] [place] [id number] documented in this encounter Visit Diagnoses Diagnosis Acute nonintractable headache, unspecified headache type- Primary Scalp irritation documented in this encounter Administered Medications Inactive Administered Medications - up to 3 most recent administrations Medication Order MAR Action Action Date Dose Rate Site acetaminophen (Tylenol) tablet 500 mg 500 mg, Oral, Once, 1 dose, On Jeaneth 12/15/22 at 2215, STAT Given 12/15/2022 10:17 PM EDT 500 mg ibuprofen tablet 800 mg 800 mg, Oral, Once, 1 dose, On Jeaneth 12/15/22 at 2215, STAT Given 12/15/2022 10:17 PM EDT 800 mg lactated Ringer's infusion 1,000 mL 1,000 mL, Intravenous, Once, 1 dose, On Jeaneth 12/15/22 at 1855, STAT New Bag 12/15/2022 7:32 PM EDT 1,000 mL documented in this encounter Active and Recently Administered Medications Times are shown in EDT. Scheduled Medication Order 12/13/2022 12/14/2022 12/15/2022 acetaminophen (Tylenol) tablet 500 mg (COMPLETED) 500 mg, Oral, Once, 1 dose, On Jeaneth 12/15/22 at 2215, STAT 2217 (Given - Provid er: Gerald العراقي) ibuprofen tablet 800 mg (COMPLETED) 800 mg, Oral, Once, 1 dose, On Jeaneth 12/15/22 at 2215, STAT 2217 (Given - Provid er: Gerald العراقي) lactated Ringer's infusion 1,000 mL (COMPLETED) 1,000 mL, Intravenous, Once, 1 dose, On Jeaneth 12/15/22 at 1855, STAT 1931 (New Bag - Prov ider: Gerald العراقي)2111 (Stopped - Provider: Gerald العراقي) documented in this encounter Care Teams Director Of Business Operations Relationship Specialty Start Date End Date Corina Spence APRN [facility] [place] [address] PCP - General 09/11/[address] [address] Wastewater Project Manager Dietitian 11/24/20 01/11/24 documented as of this encounter
--- OUTSIDE RECORDS SUMMARY | 2024-03-13 16:28 | XMS_ITS | Encounter Summary ---
Author Organization [facility] Address [address] [place] [address] Care Team Providers Care Pharmacy Technician Name Role Phone Corina Spence APRN Primary Care Provider [phone] Unavailable [phone] Encounter Details Date Type Department Care Team (Late st Contact Info) Description 12/01/2023 Telephone Obstetrics & Gynecology [address] [place] [address] Felice Camacho MD [address] [place] [address] Social History Tobacco Use Types Packs/Day Years Used Date Smoking Tobacco: Every Day Cigarettes Smokeless Tobacco: Never Alcohol Use Standard Drinks/Week Comments Never 0 (1 standard drink = 0.6 oz pur e alcohol) PHQ-2 Answer Date Recorded Patient Health Questionnaire-2 Score 0 11/27/2023 [place] Depression Scale Answer Date Recorded [place] Depression Scale Total 0 02/18/2021 The thought [...] * Telephone Encounter - Lesa Henley - 12/01/2023 3:53 PM EDT Called diflucan in for patient, called pt she is aware documented in this encounter Plan of Treatment Upcoming Encounters Date Type Department Care Team (Late st Contact Info) Description 03/25/2024 8:00 AM EST Office Visit Obstetrics & Gynecology [address] [place] [address] Felice Camacho MD [address] [place] [address] 04/05/2024 9:00 AM EST Clinical Support Obstetrics & Gynecology [address] [place] [address] 05/03/2024 9:00 AM EST Clinical Support Obstetrics & Gynecology [address] [place] [address] 05/31/2024 9:00 AM EST Clinical Support Obstetrics & Gynecology [address] [place] [address] 06/28/2024 9:00 AM EST Clinical Support Obstetrics & Gynecology [facility] [place] [address] documented as of this encounter Visit Diagnoses Not on filedocumented in this encounter Additional Health Concerns Assessment Noted Time A fall risk assessment has been complete d for the patient 11/27/2023 1:11 PM EDT A Body Mass Index follow-up plan has been documented for the patient 11/27/2023 1:24 PM EDT documented as of this encounter Care Teams Pharmacy Technician Relationship Specialty Start Date End Date Corina Spence APRN [address] [place] [address] PCP - General 09/11/[address] [address] Grinder Operator External Tool Dietitian 11/24/20 01/11/24 documented as of this encounter
--- OUTSIDE RECORDS SUMMARY | 2024-03-13 16:28 | XMS_ITS | Encounter Summary ---
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 vascular abnormality identified.. No evidence of externalcompression. CRITICAL RESULT: No. COMMUNICATION: Per this written report. Approved by Rayray Wheeler D.O. on 10/09/2021 3:34 PM By electronically signing this report, I, the attending physician, attestthat I have personally reviewed the images/data for the aboveexamination(s) and agree with the final edited report. Dictated by Rayray Wheeler D.O. on 10/09/2021 3:34 PM Signed by Niranjan Loredo on 10/09/2021 3:51 PM us Niranjan Chapman MD IMG CT PROCEDURES Final Result * CT Chest w IV Contrast (10/09/2021 3:30 PM EDT) Anatomical Region Laterality Modality Chest Computed Tomogra phy Impressions 10/09/2021 3:43 PM EDT 1. No acute findings in the chest. CRITICAL RESULT: ?? No. COMMUNICATION: Per this written report. Dictated by James Marcano on 10/09/2021 3:40 PM Signed by James Marcano on 10/09/2021 3:43 PM Narrative 10/09/2021 3:43 PM EDT Exam/Procedure: CT CHEST W IV CONTRAST ordered by NIRANJAN CHAPMAN, [id number] CLINICAL INDICATION: previousy diagnosed cystic structure, left arm/neck pain. TECHNIQUE: Imaging of the chest was performed, from thoracic inlet through upper abdomen, using spiral technique, following administration of IV contrast, Omnipaque 300, 100 mL according to the CT Chest protocol. Total DLP (Dose-Length Product): 873.94 mGy.cm. Please note: The reported value represents the total of one or more individual components during the CT acquisition on this date and at this time, and as such, the same value may appear in more than one CT report depending on the interpreting/reporting physicians. COMPARISON: None. FINDINGS: Chest: Aorta/Vessels: The thoracic aorta is unremarkable. No large central filling defect within the pulmonary arteries to suggest pulmonary embolism. Pleural/Pericardial Space: No pneumothorax. No pleural effusions. No pericardial effusion. Lymph Nodes: No lymphadenopathy within the chest. Lungs: Except for minimal dependent atelectasis, the lungs are clear. Mediastinum: Otherwise unremarkable. Chest Wall: No chest wall hematoma or contusion. Bones: No acute fracture within the chest. Upper Abdomen: Unremarkable. Procedure Note James Marcano MD - 10/09/2021 Exam/Procedure: CT CHEST W IV CONTRAST ordered by NIRANJAN CHAPMAN, [id number] CLINICAL INDICATION: previousy diagnosed cystic structure, left arm/neck pain. TECHNIQUE: Imaging of the chest was performed, from thoracic inlet through upperabdomen, using spiral technique, following administration of IV contrast,Omnipaque 300, 100 mL according to the CT Chest protocol. Total DLP (Dose-Length Product): 873.94 mGy.cm. Please note: The reportedvalue represents the total of one or more individual components during theCT acquisition on this date and at this time, and as such, the same valuemay appear in more than one CT report depending on theinterpreting/reporting physicians. COMPARISON: None. FINDINGS: Chest: Aorta/Vessels: The thoracic aorta is unremarkable. No large centralfilling defect within the pulmonary arteries to suggest pulmonaryembolism. Pleural/Pericardial Space: No pneumothorax. No pleural effusions. Nopericardial effusion. Lymph Nodes: No lymphadenopathy within the chest. Lungs: Except for minimal dependent atelectasis, the lungs are clear. Mediastinum: Otherwise unremarkable. Chest Wall: No chest wall hematoma or contusion. Bones: No acute fracture within the chest. Upper Abdomen: Unremarkable. IMPRESSION: 1. No acute findings in the chest. CRITICAL RESULT: No. COMMUNICATION: Per this written report. Dictated by James Marcano on 10/09/2021 3:40 PM Signed by James Marcano on 10/09/2021 3:43 PM us Niranjan Chapman MD IMG CT PROCEDURES Final Result * VAS US Venous Duplex Upper Extremity Unilateral Left (10/09/2021 2:43 PM EDT) Anatomical Region Laterality Modality Upper Extremities, Vascular Left Ultr asound Impressions 10/11/2021 4:16 PM EDT Left: Normal study; no evidence of acute DVT is identified. COMMUNICATION: Per this written report. Approved by Elisabeth Chapman R.V.T. on 10/09/2021 2:58 PM By electronically signing this report, I, the attending physician, attest that I have personally reviewed the images/data for the above examination(s) and I agree with the final edited report. Dictated by Elisabeth Chapman R.V.T. on 10/09/2021 2:58 PM Signed by Bernardo Marie MD, FACS, FSVS, RPVI on 10/11/2021 4:16 PM Narrative 10/11/2021 4:16 PM EDT Exam/Procedure: VAS US VENOUS DUPLEX UPPER EXTREMITY UNILATERAL ordered by YAKELIN UREÑA, [id number] CLINICAL INDICATION: Left upper extremity weakness TECHNIQUE: Non-invasive, real time duplex exam of the upper extremity venous circulation with Doppler ultrasonic waveform and spectral analysis was performed. COMPARISON: None. FINDINGS: Right: Venous duplex demonstrates a compressible and augmentable subclavian vein, imaged for comparison purposes. Left: Venous duplex demonstrates compressible IJV, subclavian, axillary, brachial, basilic and cephalic veins. The venous spectral analysis demonstrates a spontaneous, phasic and augmentable flow signal. Procedure Note Bernardo Marie MD - 10/11/2021 Exam/Procedure: VAS US VENOUS DUPLEX UPPER EXTREMITY UNILATERAL ordered byYAKELIN UREÑA, [id number] CLINICAL INDICATION: Left upper extremity weakness TECHNIQUE: Non-invasive, real time duplex exam of the upper extremity venouscirculation with Doppler ultrasonic waveform and spectral analysis wasperformed. COMPARISON: None. FINDINGS: Right: Venous duplex demonstrates a compressible and augmentablesubclavian vein, imaged for comparison purposes. Left: Venous duplex demonstrates compressible IJV, subclavian, axillary,brachial, basilic and cephalic veins. The venous spectral analysisdemonstrates a spontaneous, phasic and augmentable flow signal. IMPRESSION: Left: Normal study; no evidence of acute DVT is identified. COMMUNICATION: Per this written report. Approved by Elisabeth Chapman R.V.T. on 10/09/2021 2:58 PM By electronically signing this report, I, the attending physician, attestthat I have personally reviewed the images/data for the aboveexamination(s) and I agree with the final edited report. Dictated by Elisabeth Chapman R.V.T. on 10/09/2021 2:58 PM Signed by Bernardo Marie MD, FACS, FSVS, RPVI on 10/11/2021 4:16 PM us Yakelin WEISS CV VASCULAR PROCEDURES Final Res ult * VAS US Arterial Duplex Upper Extremity Unilateral Left (10/09/2021 2:42 PM EDT) Anatomical Region Laterality Modality Vascular Ultrasound Impressions 10/11/2021 4:16 PM EDT Left: Normal study. There is no evidence of stenosis in the upper extremity arteries. COMMUNICATION: Per this written report. Approved by Elisabeth Chapman R.V.T. on 10/09/2021 3:05 PM By electronically signing this report, I, the attending physician, attest that I have personally reviewed the images/data for the above examination(s) and I agree with the final edited report. Dictated by Elisabeth Chapman R.V.T. on 10/09/2021 3:05 PM Signed by Bernardo Marie MD, FACS, FSVS, RPVI on 10/11/2021 4:16 PM Narrative 10/11/2021 4:16 PM EDT Exam/Procedure: VAS US ARTERIAL DUPLEX UPPER EXTREMITY UNILATERAL ordered by YAKELIN UREÑA, [id number] CLINICAL INDICATION: Claudication/rest pain TECHNIQUE: Non-invasive, real time duplex exam of the upper extremity arterial circulation with Doppler ultrasonic waveform and spectral analysis was performed. COMPARISON: None. FINDINGS: The following flow velocities and waveform characteristics were obtained: Right: Subclavian artery: 105 cm/s; multiphasic, imaged for comparison purposes Left: Subclavian artery: 98 cm/s; multiphasic Axillary artery: 91 cm/s; multiphasic Brachial artery: 65 cm/s; multiphasic Radial artery: 51 cm/s; multiphasic Ulnar artery: 82 cm/s; multiphasic Procedure Note Bernardo Marie MD - 10/11/2021 Exam/Procedure: VAS US ARTERIAL DUPLEX UPPER EXTREMITY UNILATERAL orderedby YAKELIN UREÑA, [id number] CLINICAL INDICATION: Claudication/rest pain TECHNIQUE: Non-invasive, real time duplex exam of the upper extremity arterialcirculation with Doppler ultrasonic waveform and spectral analysis wasperformed. COMPARISON: None. FINDINGS: The following flow velocities and waveform characteristics were obtained: Right: Subclavian artery: 105 cm/s; multiphasic, imaged for comparison purposes Left: Subclavian artery: 98 cm/s; multiphasic Axillary artery: 91 cm/s; multiphasic Brachial artery: 65 cm/s; multiphasic Radial artery: 51 cm/s; multiphasic Ulnar artery: 82 cm/s; multiphasic IMPRESSION: Left: Normal study. There is no evidence of stenosis in the upperextremity arteries. COMMUNICATION: Per this written report. Approved by Elisabeth Chapman R.V.T. on 10/09/2021 3:05 PM By electronically signing this report, I, the attending physician, attestthat I have personally reviewed the images/data for the aboveexamination(s) and I agree with the final edited report. Dictated by Elisabeth Chapman R.V.T. on 10/09/2021 3:05 PM Signed by Bernardo Marie MD, FACS, FSVS, RPVI on 10/11/2021 4:16 PM us Yakelin WEISS CV VASCULAR PROCEDURES Final Res ult * HIV 1 & 2 Antibody/Antigen Screen (10/09/2021 12:33 PM EDT) Pathologist [facility] [place] HIV 1 & 2 Antibody/Anti gen Screen Nonreactive Nonreactive 10/09/2021 2:58 PM EDT [facility] Blood Venous blood specimen / Unknown Venipuncture / Unknown 10/09/2021 12:33 PM EDT 10/09/2021 1:01 PM EDT us Niranjan Chapman MD LAB BLOOD ORDERABLES Final Resu lt [facility] [address] [place] [address] * (ABNORMAL) CMP (10/09/2021 12:33 PM EDT) Glucose, Plasma 102(H) 74 - 99 mg/dL 10/09/2021 1:01 PM EDT [facility] BUN, Plasma 9 7 - 21 mg/dL 10/09/2021 1:01 PM EDT [facility] Creatinine, Plasma 1.02 0.60 - 1.10 mg/dL 10/09/2021 1:01 PM EDT [facility] BUN/Creatinine Ratio 9 10/09/2021 1:01 PM EDT [facility] Sodium, Plasma 137 136 - 145 mmol/L 10/09/2021 1:01 PM EDT [facility] Potassium, Plasma 3.8 3.7 - 4.8 mmol/L 10/09/2021 1:01 PM EDT [facility] Comment:Reference range for Serum potassium is 0.2 to 0.5 mmol/L higher than Plasma range. Chloride, Plasma 101 97 - 107 mmol/L 10/09/2021 1:01 PM EDT [facility] CO2, Plasma 25 22 - 29 mmol/L 10/09/2021 1:01 PM EDT [facility] Anion Gap 11 6 - 16 mmol/L 10/09/2021 1:01 PM EDT [facility] Total Calcium, Plasma 9.2 8.9 - 10.2 mg/dL 10/09/2021 1:01 PM EDT [facility] Total Protein 7.6 6.3 - 7.9 g/dL 10/09/2021 1:01 PM EDT [facility] Albumin, Plasma 4.6 3.5 - 5.2 g/dL 10/09/2021 1:01 PM EDT [facility] AST, Plasma 17 11 - 32 U/L 10/09/2021 1:01 PM EDT [facility] ALT, Plasma 16 8 - 33 U/L 10/09/2021 1:01 PM EDT [facility] Alkaline Phosphatase, Plasma 46 35 - 104 U/L 10/09/2021 1:01 PM EDT [facility] Total Bilirubin, Plasma 0.3 0.2 - 1.1 mg/dL 10/09/2021 1:01 PM EDT [facility] eGFR >60 >60 mL/min/1.7 3m*2 10/09/2021 1:01 PM EDT [facility] Comment:eGFR = estimated GFR ; eGFR units = mL/min/1.73 sq meters Chronic Kidney Disease is considered if eGFR <60 mL/min/1.73 sq meters Kidney failure is considered if eGFR is <15 mL/min/1.73 sq meters. eGFR assumes steady state plasma creatinine concentration; not applicable if renal function is rapidly changing or patient is on dialysis. eGFR, if AFR/AM >60 >60 mL/min/1.7 3m*2 10/09/2021 1:01 PM EDT [facility] Comment:eGFR = estimated GFR ; eGFR units = mL/min/1.73 sq meters Chronic Kidney Disease is considered if eGFR <60 mL/min/1.73 sq meters Kidney failure is considered if eGFR is <15 mL/min/1.73 sq meters. eGFR assumes steady state plasma creatinine concentration; not applicable if renal function is rapidly changing or patient is on dialysis. Blood Venous blood specimen / Unknown Venipuncture / Unknown 10/09/2021 12:33 PM EDT 10/09/2021 12:37 PM EDT Niranjan Chapman MD LAB BLOOD ORDERABLES Final Resu lt [facility] [address] [place] [address] * CBC w/diff (10/09/2021 12:33 PM EDT) WBC Count 4.49 3.70 - 10.30 10*3/uL LAB HEMATOLOGY METHOD 10/09/2021 12:40 PM EDT [facility] RBC Count 5.05 3.90 - 5.20 10*6/uL LAB HEMATOLOGY METHOD 10/09/2021 12:40 PM EDT [facility] HGB 14.6 11.2 - 15.7 g/dL LAB HEMATOLOGY METHOD 10/09/2021 12:40 PM EDT [facility] HCT 43.7 34.0 - 45.0 % LAB HEMATOLOGY METHOD 10/09/2021 12:40 PM EDT [facility] Platelet Count 191 155 - 369 10*3/uL LAB HEMATOLOGY METHOD 10/09/2021 12:40 PM EDT [facility] MCV 87 79 - 98 fL LAB HEMATOLOGY METHOD 10/09/2021 12:40 PM EDT [facility] MCH 28.9 26.0 - 32.0 pg LAB HEMATOLOGY METHOD 10/09/2021 12:40 PM EDT [facility] MCHC 33.4 30.7 - 35.5 g/dL LAB HEMATOLOGY METHOD 10/09/2021 12:40 PM EDT [facility] RDW 13.3 11.5 - 14.5 % LAB HEMATOLOGY METHOD 10/09/2021 12:40 PM EDT [facility] MPV 11.2 8.8 - 12.5 fL LAB HEMATOLOGY METHOD 10/09/2021 12:40 PM EDT [facility] nRBC 0.0 <=0.0 per 100 WBCs LAB HEMATOLOGY METHOD 10/09/2021 12:40 PM EDT [facility] Differential Type Automated LAB HEMATOLOGY METHOD 10/09/2021 12:40 PM EDT [facility] Neutrophils % 44.0 % LAB HEMATOLOGY METHOD 10/09/2021 12:40 PM EDT [facility] Lymphocytes % 42.0 % LAB HEMATOLOGY METHOD 10/09/2021 12:40 PM EDT [facility] Monocytes % 9.0 % LAB HEMATOLOGY METHOD 10/09/2021 12:40 PM EDT [facility] Eosinophils % 4.0 % LAB HEMATOLOGY METHOD 10/09/2021 12:40 PM EDT [facility] Basophils % 1.0 % LAB HEMATOLOGY METHOD 10/09/2021 12:40 PM EDT [facility] Immature Granulocytes % 0.0 % LAB HEMATOLOGY METHOD 10/09/2021 12:40 PM EDT [facility] Neutrophils Absolute 1.99 1.60 - 6.10 10*3/uL LAB HEMATOLOGY METHOD 10/09/2021 12:40 PM EDT [facility] Lymphocytes Absolute 1.90 1.20 - 3.90 10*3/uL LAB HEMATOLOGY METHOD 10/09/2021 12:40 PM EDT [facility] Monocytes Absolute 0.40 0.30 - 0.90 10*3/uL LAB HEMATOLOGY METHOD 10/09/2021 12:40 PM EDT [facility] Eosinophils Absolute 0.16 0.00 - 0.50 10*3/uL LAB HEMATOLOGY METHOD 10/09/2021 12:40 PM EDT [facility] Basophils Absolute 0.03 0.00 - 0.10 10*3/uL LAB HEMATOLOGY METHOD 10/09/2021 12:40 PM EDT [facility] Immature Granulocytes Absolute 0.01 0.00 - 0.06 10*3/uL LAB HEMATOLOGY METHOD 10/09/2021 12:40 PM EDT [facility] Blood Venous blood specimen / Unknown Venipuncture / Unknown 10/09/2021 12:33 PM EDT 10/09/2021 12:37 PM EDT [facility] - 10/09/2021 12:40 PM EDT Therapeutic decision making should be based on absolute values, rather than percentages. us Niranjan Chapman MD LAB BLOOD ORDERABLES Final Resu lt [facility] [address] [place] [address] * D-Dimer, Quantitative (10/09/2021 12:33 PM EDT) Pathologist [facility] [place] D Dimer, Quantitative <0.28 <0.50 ug/mL FEU 10/09/2021 12:57 PM EDT [facility] Blood Venous blood specimen / Unknown Venipuncture / Unknown 10/09/2021 12:33 PM EDT 10/09/2021 12:37 PM EDT Narrative [facility] - 10/09/2021 12:57 PM EDT Test performed by [facility] D-dimer assay. Values greater than 0.50 ug/mL FEU should be evaluated for risk stratification of patients with possible venous thromboembolism. In addition to expected elevations following injury or surgery, D-dimer levels increase in normal and increase steadily with normal aging. Values in healthy individuals often exceed the VTE exclusion cutoff value, and should be considered in the clinical context. us Niranjan Chapman MD LAB BLOOD ORDERABLES Final Resu lt Performing Organization Address [facility] de Phone Number [facility] [address] [place] [address] * (ABNORMAL) C-Reactive protein (10/09/2021 12:33 PM EDT) [facility] CRP, Plasma 8.8(H) <=8.0 mg/L 10/09/2021 1:01 PM EDT [facility] Blood Venous blood specimen / Unknown Venipuncture / Unknown 10/09/2021 12:33 PM EDT 10/09/2021 12:37 PM EDT Narrative [facility] - 10/09/2021 1:01 PM EDT This CRP test is appropriate for assessment of infection, systemic inflammation and/or tissue injury. To assess cardiovascular disease risk order high sensitivity CRP (CRPH). us Niranjan Chapman MD LAB BLOOD ORDERABLES Final Resu lt Performing Organization Address [facility] Co de Phone Number [facility] [address] [place] [address] * hCG qualitative (10/09/2021 12:33 PM EDT) Test Negative Negative 10/09/2021 1:00 PM EDT [facility] Blood Venous blood specimen / Unknown Venipuncture / Unknown 10/09/2021 12:33 PM EDT 10/09/2021 12:37 PM EDT Narrative [facility] - 10/09/2021 1:00 PM EDT Reference Range: Males and non- females: Negative. us Niranjan Chapman MD LAB BLOOD ORDERABLES Final Resu lt Performing Organization Address [facility] Co de Phone Number [facility] [address] [place] [address] * Hepatitis C Antibody - ED (10/09/2021 12:33 PM EDT) Hepatitis C Antibody Negative Negative 10/09/2021 2:56 PM EDT [facility] Blood Venous blood specimen / Unknown Venipuncture / Unknown 10/09/2021 12:33 PM EDT 10/09/2021 1:01 PM EDT us Niranjan Chapman MD LAB BLOOD ORDERABLES Final Resu lt Performing Organization Address [facility] de Phone Number [facility] [address] [place] [address] documented in this encounter Visit Diagnoses Diagnosis Arm pain, diffuse, left- Primary documented in this encounter Administered Medications Inactive Administered Medications - up to 3 most recent administrations Medication Order MAR Action Action Date Dose Rate Site HYDROcodone-acetaminophen ([place]) 5-325 MG per tablet 1 tablet 1 tablet, Oral, Once, 1 dose, On 10/09/21 at 1340, STAT Given 10/09/2021 1:40 PM EDT 1 tablet iohexol (OMNIPaque) 300 MG/ML injection 100 mL 100 mL, Intravenous, Once in imaging, 1 dose, Starting on 10/09/21 at 1405, Until 10/09/21 at 1520, Routine, Imaging Protocol Orders Given 10/09/2021 3:20 PM EDT 100 mL documented in this encounter Active and Recently Administered Medications Times are shown in EDT. Scheduled Medication Order 10/07/2021 10/08/2021 10/09/2021 HYDROcodone-acetaminophen ([place]) 5-325 MG per tablet 1 tablet (COMPLETED) 1 tablet, Oral, Once, 1 dose, On 10/09/21 at 1340, STAT 1340 (Given - Provid er: Sherita Villa, RN) iohexol (OMNIPaque) 300 MG/ML injection 100 mL (COMPLETED) 100 mL, Intravenous, Once in imaging, 1 dose, Starting on 10/09/21 at 1405, Until 10/09/21 at 1520, Routine, Imaging Protocol Orders 1520 (Given - Provid er: Joy Bailey) documented in this encounter Care Teams [employer] Worker Relationship Specialty Start Date End Date Corina Spence APRN [facility] [place] [id number] PCP - General 09/11/[address] The[address] Chavira [address] [id number] [facility] 11/24/20 01/11/24 documented as of this encounter
--- OUTSIDE RECORDS SUMMARY | 2024-03-13 16:28 | XMS_ITS | Encounter Summary ---
Author Organization Healthcare Address [address] [place] [address] Care Team Providers Care Magazine Worker Name Role Phone Corina Spence APRN Primary Care Provider [phone]- [phone] Unavailable Reason for Visit * Reason Comments Procedure Pre opPatient doing well Encounter Details Date Type Department Care Team (Late st Contact Info) Description 01/08/2024 11:15 AM EDT Office Visit Obstetrics & Gynecology [address] [place] [address] Felice Camcaho MD [address] [place] [address] Pelvic and perineal pain (Primary Dx); Irregular menstruation, unspecified; Endometriosis Social History Tobacco Use Types Packs/Day Years Used Date Smoking Tobacco: Every Day Cigarettes Smokeless Tobacco: Never Alcohol Use Standard Drinks/Week Comments Never 0 (1 standard drink = 0.6 oz pur e alcohol) PHQ-2 Answer Date Recorded Patient Health Questionnaire-2 Score 0 01/08/2024 [place] Depression Scale Answer Date Recorded [place] Depression Scale Total 0 02/18/2021 The thought [...] Sign Reading Time Taken Comments Blood Pressure 131/85 01/08/2024 10:55 AM EDT Pulse - - Temperature - - Respiratory Rate - - Oxygen Saturation - - Inhaled Oxygen Concentration - - Weight 56 kg (123 lb 7.3 oz) 01/08/2024 10:55 AM EDT Height - - Body Mass Index 19.34 12/14/2023 10:29 AM EDT documented in this encounter Miscellaneous Notes * Progress Notes - Felice Camacho MD - 01/08/2024 11:15 AM EDT Gynecology Note Subjective Chief Complaint Patient presents with ??? Procedure Pre op Patient doing well Byron Smith is a 28 y.o. ( [...] September. Had CT scan in ED at [facility] last week - saw ovarian cyst. BUSINESS SYSTEMS MANAGER TVUS WNL. Strongly desires L/S + possible Fulguration of Endometriosis before considering definitive surgery. All questions asked & answered to her satisfaction - desires to proceed - understands r/b/a. Past Medical History She has a past [...] the following prescription(s): amitriptyline, aspirin, hydroxychloroquine, quetiapine, one touch ultra 2, cyclobenzaprine, onetouch delica plus [id number], lidocaine, methylprednisolone, nicotrol, nifedipine, onetouch ultra, and venlafaxine xr. Allergies Allergies Allergen Reactions ??? Sulfamethoxazole-Trimethoprim Other - please document in the comment field Review of Systems Constitutional: Negative. HENT: Negative. Eyes: Negative. Respiratory: Negative. Cardiovascular: Negative. Gastrointestinal: Negative. Endocrine: Negative. Genitourinary: Positive for menstrual problem and pelvic pain. Musculoskeletal: Negative. Skin: Negative. Allergic/Immunologic: Negative. Neurological: Negative. Hematological: Negative. Psychiatric/Behavioral: Negative. All other systems reviewed and are negative. Objective Visit Vitals BP 131/85 Body mass index is 19.34 kg/m??. Physical Exam Constitutional: Appearance: Normal appearance. She is normal weight. HENT: Head: Normocephalic and atraumatic. Right Ear: External ear normal. Left Ear: External ear normal. Cardiovascular: Rate and Rhythm: Normal rate and regular rhythm. Heart sounds: Normal heart sounds. Pulmonary: Effort: Pulmonary effort is normal. Breath sounds: Normal breath sounds. Musculoskeletal: General: Normal range of motion. Cervical back: Normal range of motion. Neurological: General: No focal deficit present. Mental Status: She is alert and oriented to person, place, and time. Skin: General: Skin is warm and dry. Psychiatric: Mood and Affect: Mood normal. Behavior: Behavior normal. Thought Content: Thought content normal. Judgment: Judgment normal. Vitals and nursing note reviewed. Assessment/Plan Diagnoses and all orders for this visit: Pelvic and perineal pain Irregular menses Endometriosis Previously discussed Lupron vs Orilissa vs L/S vs TLH/BSO vs L/S + fulguration - f/b LUPRON if needed Desires L/S - Consented today A total of 20 minutes was spent [...] Visit Obstetrics & Gynecology [address] [place] [address] Felice Camacho MD [address] [place] [address] 04/05/2024 9:00 AM EST Clinical Support Obstetrics & Gynecology [address] [place] [address] 05/03/2024 9:00 AM EST Clinical Support Obstetrics & Gynecology [address] [place] [address] 05/31/2024 9:00 AM EST Clinical Support Obstetrics & Gynecology [address] [place] [address] 06/28/2024 9:00 AM EST Clinical Support Obstetrics & Gynecology [address] [place] [address] documented as of this encounter Visit Diagnoses Diagnosis Pelvic and perineal pain- Primary Irregular menstruation, unspecified Endometriosis Endometriosis, site unspecified documented in this encounter Additional Health Concerns Assessment Noted Time A fall risk assessment has been complete d for the patient 01/08/2024 10:56 AM EDT A Body Mass Index follow-up plan has been documented for the patient 01/08/2024 11:08 AM EDT documented as of this encounter Care Teams Magazine Worker Relationship Specialty Start Date End Date Corina Spence APRN [address] [place] [address] PCP - General 09/11/[address] [address] Molasses Coloring Operator Dietitian 11/24/20 01/11/24 documented as of this encounter
--- OUTSIDE RECORDS SUMMARY | 2024-03-13 16:28 | XMS_ITS | Encounter Summary ---
Author Organization Healthcare Address [address] [place] [address] Care Team Providers Care Laborer Salvage Name Role Phone Corina Spence APRN Primary Care Provider [phone]- [phone] Unavailable [phone] Reason for Visit * Reason Onset Date Comments HCN - Patient Message 01/08/2024 Encounter Details Date Type Department Care Team (Late st Contact Info) Description 01/08/2024 Telephone Obstetrics & Gynecology [address] [place] [address] Felice Camacho MD [address] [place] [address] HCN - Patient Message Social History Tobacco Use Types Packs/Day Years Used Date Smoking Tobacco: Every Day Cigarettes Smokeless Tobacco: Never Alcohol Use Standard Drinks/Week Comments Never 0 (1 standard drink = 0.6 oz pur e alcohol) PHQ-2 Answer Date Recorded Patient Health Questionnaire-2 Score 0 02/09/2024 [place] Depression Scale Answer Date Recorded [place] Depression Scale Total 0 02/18/2021 The thought of harming myself has occurred to me . Never 02/18/2021 Comments No Sex and Gender Information Value Date Recorded Sex Assigned at Not on file Legal Sex Female 8:38 PM EDT Gender Identity Not on file Sexual Orientation Bisexual 01/07/2024 3: 53 PM EDT documented as of this encounter Miscellaneous Notes * Telephone Encounter - Teresa Watts - 01/08/2024 11:37 AM EDT Called pt and asked what her questions were. Pt stated that she turned around and came back to clinic and asked her questions. All pt's questions has been answered. Pt voiced understanding. * Telephone Encounter - Abbi Pinon - 01/08/2024 11:23 AM EDT Clinical Concern/Question Reason for Call: pt is needing to speak with the nurse please Best contact number: [phone] (home) Optimal time of day to reach caller: ANYTIME Additional comments/information from caller: None Note: Please do not reply to this message. Follow-up communication and further actions as a result of this message need to be communicated with the patient directly, if the patient is not active onMyChart. If the patient is active on MyChart, they will receive notification of the communication/outcome via tagga. documented in this encounter Plan of Treatment Upcoming Encounters Date Type Department Care Team (Late st Contact Info) Description 03/25/2024 8:00 AM EST Office Visit Obstetrics & Gynecology [address] [place] [address] Felice Camacho MD [address] [place] [address] 04/05/2024 9:00 AM EST Clinical Support Obstetrics & Gynecology [address] [place] [address] 05/03/2024 9:00 AM EST Clinical Support Obstetrics & Gynecology [address] [place] [address] 05/31/2024 9:00 AM EST Clinical Support Obstetrics & Gynecology [address] [place] [address] 06/28/2024 9:00 AM EST Clinical Support Obstetrics & Gynecology [address] [place] [address] documented as of this encounter Visit Diagnoses Not on filedocumented in this encounter Additional Health Concerns Assessment Noted Time A fall risk assessment has been complete d for the patient 01/08/2024 10:56 AM EDT A Body Mass Index follow-up plan has been documented for the patient 01/08/2024 11:08 AM EDT documented as of this encounter Care Teams Laborer Salvage Relationship Specialty Start Date End Date Corina Spence APRN [facility] [place] [id number] PCP - General 09/11/[address] [place] [address] Casework Manager Dietitian 11/24/20 01/11/24 documented as of this encounter
--- OUTSIDE RECORDS SUMMARY | 2024-03-13 16:28 | XMS_ITS | Encounter Summary ---
Author Organization Healthcare Address [address] [place] [address] Care Team Providers Care Clinical Administrator Name Role Phone Corina Spence APRN Primary Care Provider [phone] Unavailable [phone] Encounter Details Date Type Department Care Team (Latest Contact Info) Description 04/12/2021 4:15 PM EST Clinical Support Obstetrics & Gynecology [address] [place] [address] UTI symptoms (Primary Dx) Social History Tobacco Use Types Packs/Day Years Used Date Smoking Tobacco: Never Smokeless Tobacco: Never Alcohol Use Standard Drinks/Week Comments Never 0 (1 standard drink = 0.6 oz pur e alcohol) [place] Depression Scale Answer Date Recorded [place] Depression Scale Total 0 02/18/2021 The thought [...] PM EST documented as of this encounter Miscellaneous Notes * Progress Notes - Preston Robin - 04/12/2021 4:15 PM EST Complaints of swollen/ chap feeling and frequency. Typical symptoms for her for UTI. Talked with DR. Camacho and we are sending keflex for her and will send urine for culture. documented in this encounter Plan of Treatment Upcoming Encounters Date Type Department Care Team (Late st Contact Info) Description 03/25/2024 8:00 AM EST Office Visit Obstetrics & Gynecology [address] [place] [address] Felice Camacho MD [address] [place] [address] 04/05/2024 9:00 AM EST Clinical Support Obstetrics & Gynecology [address] [place] [address] 05/03/2024 9:00 AM EST Clinical Support Obstetrics & Gynecology [address] [place] [address] 05/31/2024 9:00 AM EST Clinical Support Obstetrics & Gynecology [address] [place] [phone] 06/28/2024 9:00 AM EST Clinical Support Obstetrics & Gynecology [address] [place] [phone] documented as of this encounter Procedures Procedure Name Priority Date/Time Associated Diagnosis Comments POCT URINALYSIS DIPSTICK Routine 04/12/2021 4:47 PM EST UTI symptoms URINE CULTURE Routine 04/12/2021 4:46 PM EST UTI symptoms documented in this encounter Results * (ABNORMAL) Urine dip (04/12/2021 4:47 PM EST) POCT Glucose Urine Negative Negative mg/dL POCT Bilirubin, Urine Negative Negative POCT Ketones, Urine Trace(A) Negative mg/dL POCT Specific [place], Urine >=1.030 POCT Blood, Urine Small(A) Negative POCT pH, Urine 7.0 POCT Protein, Urine Negative Negative mg/dL POCT Urobilinogen, Urine 0.2 0.2, 1 E.U./dL POCT Nitrite, Urine Negative Negative POCT Leukocyte Esterase, Urine Negative Negative Urine Urine specimen obtained by clean catch procedure / Unknown 04/12/2021 4:47 PM EST Result Shola Camacho MD POINT OF CARE TEST ENTER/EDIT O RDERABLES Final Result * Urine Culture (04/12/2021 4:46 PM EST) Culture No growth at 30 hours 04/14/2021 10:35 AM EST [facility] Urine Urine specimen obtained by clean catch procedure / Unknown Non-blood Collection / Unknown 04/12/2021 4:46 PM EST 04/12/2021 6:39 PM EST Result Shola Camacho MD LAB MICROBIOLOGY - GENERAL SACHA GASTELUM Final Result Performing Organization Address [facility] Phone Number [facility] [address] [place] [address] documented in this encounter Visit Diagnoses Diagnosis UTI symptoms- Primary documented in this encounter Care Teams Clinical Administrator Relationship Specialty Start Date End Date Corina Spence APRN [facility] [place] [address] PCP - General 09/11/[address] [phone] Business Law Teacher Dietitian 11/24/20 01/11/24 documented as of this encounter
--- OUTSIDE RECORDS SUMMARY | 2024-03-13 16:28 | XMS_ITS | Encounter Summary ---
Author Organization Healthcare Address [address] [place] [address] Care Team Providers Care Instrumentation Engineering Technician Name Role Phone Corina Spence APRN Primary Care Provider [phone] Unavailable [phone] Reason for Visit * Reason Onset Date Comments HCN - Patient Message 12/27/2021 Overbook r equest Encounter Details Date Type Department Care Team (Late st Contact Info) Description 12/27/2021 Telephone Obstetrics & Gynecology [address] [place] [address] Felice Camacho MD [address] [place] [address] HCN - Patient Message (Overbook request ) Social History Tobacco Use Types Packs/Day Years Used Date Smoking Tobacco: Never Smokeless Tobacco: Never Alcohol Use Standard Drinks/Week Comments Never 0 (1 standard drink = 0.6 oz pur e alcohol) [place] Depression Scale Answer Date Recorded [place] Depression Scale Total 0 02/18/2021 The thought [...] suspected to have Coronavirus/COVID-19? No / Unsure 12/30/2021 9:11 AM EDT documented as of this encounter Miscellaneous Notes * Telephone Encounter - Jeovanny, Johan Lopez - 12/27/2021 9:01 AM EDT Patient Phone Message Reason for Call: Endometriosis , requesting sooner than available appointment with Dr. Camacho Best contact number and optimal time of day to reach caller: Note: Please do not reply to this message. Follow-up communication and further actions as a result of this message need to be communicated with the patient directly, if the patient is not active onMyChart. If the patient is active on MyChart, they will receive notification of the communication/outcome via PhishMehart. documented in this encounter Plan of Treatment Upcoming Encounters Date Type Department Care Team (Late st Contact Info) Description 03/25/2024 8:00 AM EST Office Visit Obstetrics & Gynecology [address] [place] [address] Felice Camacho MD [address] [place] [address] 04/05/2024 9:00 AM EST Clinical Support Obstetrics & Gynecology [address] [place] [address] 05/03/2024 9:00 AM EST Clinical Support Obstetrics & Gynecology [address] [place] [address] 05/31/2024 9:00 AM EST Clinical Support Obstetrics & Gynecology [address] [place] [address] 06/28/2024 9:00 AM EST Clinical Support Obstetrics & Gynecology [address] [place] [address] documented as of this encounter Visit Diagnoses Not on filedocumented in this encounter Care Teams Instrumentation Engineering Technician Relationship Specialty Start Date End Date Corina Spence APRN [address] [place] [address] PCP - General 09/11/[address] [address] Career Center Advisor Dietitian 11/24/20 01/11/24 documented as of this encounter
--- OUTSIDE RECORDS SUMMARY | 2024-03-13 16:28 | XMS_ITS | Encounter Summary ---
Author Organization Healthcare Address [address] [place] [address] Care Team Providers Care Molding Associate Name Role Phone Corina Spence APRN Primary Care Provider [phone]- [phone] Unavailable [phone] Reason for Visit * Reason Comments Ankle Injury Encounter Details Date Type Department Care Team (Late st Contact Info) Description 12/30/2021 9:16 AM EDT - 12/30/2021 10:58 AM EDT Emergency [facility] [address] [place] [address] Melany Sarmiento MD [address] [place] [address] Milton Ramirez MD [address] [place] [address] Sprain of left ankle, unspecified ligament, initial encounter (Primary Dx) Discharge Disposition: Home or Self Care Social History Tobacco Use Types Packs/Day Years Used Date Smoking Tobacco: Never Smokeless Tobacco: Never Alcohol Use Standard Drinks/Week Comments Never 0 (1 standard drink = 0.6 oz pur e alcohol) Rum[place] Depression Scale Answer Date Recorded [place] Depression Scale Total 0 02/18/2021 The thought of harming myself has occurred to me . Never 02/18/2021 Comments No Sex and Gender Information Value Date Recorded Sex Assigned at Not on file Legal Sex Female 8:38 PM EDT Gender Identity Not on file Sexual Orientation Bisexual 01/07/2024 3: 53 PM EDT COVID-19 Exposure Response Date Recorded In the last 10 days, have jae keys been in contact with someone who was confirmed or suspected to have Coronavirus/COVID-19? No / Unsure 12/30/2021 9:11 AM EDT documented as of this encounter Last Filed Vital Signs Vital Sign Reading Time Taken Comments Blood Pressure 129/90 12/30/2021 9:10 AM EDT Pulse 85 12/30/2021 9:10 AM EDT Temperature 37.1 ??C (98.8 ??F) 12/30/2021 9:10 AM ED T Respiratory Rate 20 12/30/2021 9:10 AM EDT Oxygen Saturation 100% 12/30/2021 9:27 AM EDT Inhaled Oxygen Concentration - - Weight 59 kg (130 lb 1.1 oz) 12/30/2021 9:10 AM EDT Height 170.2 cm (5' 7 ) 12/30/2021 9:10 AM EDT Body Mass Index 20.37 12/30/2021 9:10 AM EDT documented in this encounter Discharge Instructions * Discharge Instructions* Bernie Packer PA - 12/30/2021 10:58 AM EDT Discharge instructions given verbally: EDDIE, follow up with pcp in 2-3 days. Return to er for worsening symptoms. documented in this encounter Medications at Time [...] tablet 10/09/2021 4 Lancets (OneTouch Delica Plus [id number]) misc 4 (four) times a day. for [...] Miscellaneous Notes * ED Provider Notes - Bernie Packer PA - 12/30/2021 9:07 AM EDT HPI Chief Complaint Patient presents with Ankle Injury PIT Note Byron Rudd Jorje Smith is a 26 y.o. female who presents to the ED with an ankle injury. Pt reports that she stepped off of the end of a driveway and stepped into a hidden hole in the grass with her left foot. Pt states that she twisted her left ankle during this encounter. Pt states that the ankle is painful and achy even when she is sitting still. Pt states that her ankle and dorsal foot feel slightly numb. Patient denies nausea, vomiting, fever, and chills. 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 Gastrointestinal: Negative for abdominal pain, nausea and vomiting. Genitourinary: Negative for dysuria and hematuria. Musculoskeletal: Positive for arthralgias. Negative for back pain. Left ankle pain. Skin: Negative for color change and rash. Neurological: Negative for seizures and syncope. All other systems reviewed and are negative. Physical Exam ED Triage Vitals [12/30/21 0910] Temp Heart Rate Resp BP 37.1 ??C (98.8 ??F) 85 20 129/90 SpO2 Temp src Heart Rate Source Patient Position 100 % -- -- -- BP Location FiO2 (%) -- [...] range of motion. Cervical back: No rigidity. Left ankle: Swelling present. Tenderness present over the lateral malleolus. Comments: Swelling left lateral malleolus. There is ecchymosis to lateral ankle. Normal dorsalis pedis pulse. Normal sensation. Skin: General: Skin is warm and dry. Neurological: Mental Status: She is alert and oriented to person, place, and time. Psychiatric: Mood and Affect: Mood normal. Behavior: Behavior normal. ED Course & MDM ED Course as of 12/30/21 1059 Jeaneth Dec 30, 2021 0943 XR Ankle Left 3+ Views Clinical Impressions as of 12/30/21 1059 Sprain of left ankle, unspecified ligament, initial encounter ED Disposition: MDM Number of Diagnoses or Management Options Sprain of left ankle, unspecified ligament, initial encounter Diagnosis management comments: Date/Time: 12/30/2021/9:16 AM Entered by Evangelina Jones, acting as scribe for Dr. Sarmiento. Scribe Attestation: This note was dictated to me, Ailyn Jones, acting as a scribe for Dr. Sarmiento. Attending Attestation: The documentation was recorded by Evangelina Jones acting as scribe in my presence at the time of the encounter and accurately reflects the service I personally performed. The patient was evaluated by Dr. Sarmiento and Madeline Packer PA-C. Patient was given tylenol and motrin for pain. X-rays of the foot, ankle, and tib-fib were ordered. X-Rays do not show any fractures. Patient was placed in ivonne wrap and air-splint. She was given crutches. She was instructed to use RICEtherapy. She was encouraged to follow up with her pcp in 2-3 days and to return to er for any worsening symptoms. ED Prescriptions None Sign Off Checklist Clinical Impression: Complete ED Disposition: Complete ISELA Pereira 12/30/21 1106 Cosigned by Melany Sarmiento MD at 01/05/2022 11:35 AM EDT Associated attestation - Melany Sarmiento MD - 01/05/2022 11:35 AM EDT I attest to being involved in more than half the total time in patient care. * ED Triage Notes - Yulissa Chaney RN - 12/30/2021 9:07 AM EDT Patient states that she stepped down into a hole; states that she twisted it, constant ache, denieshearing a pop. documented in this encounter Plan of Treatment Upcoming Encounters Date Type Department Care Team (Late st Contact Info) Description 03/25/2024 8:00 AM EST Office Visit Obstetrics & Gynecology [address] [place] [address] Felice Camacho MD [address] [place] [address] 04/05/2024 9:00 AM EST Clinical Support Obstetrics & Gynecology [address] [place] [address] 05/03/2024 9:00 AM EST Clinical Support Obstetrics & Gynecology [address] [place] [address] 05/31/2024 9:00 AM EST Clinical Support Obstetrics & Gynecology [address] [place] [address] 06/28/2024 9:00 AM EST Clinical Support Obstetrics & Gynecology [address] [place] [address] documented as of this encounter Procedures Procedure Name Priority Date/Time Associated Diagnosis Comments XR FOOT LEFT 3+ VIEWS STAT 12/30/2021 9:49 AM EDT XR ANKLE LEFT 3+ VIEWS STAT 12/30/2021 9:49 AM EDT XR TIBIA FIBULA LEFT 2+ VIEWS STAT 12/30/2021 9:49 AM EDT documented in this encounter Results * XR Foot Left 3+ Views (12/30/2021 9:49 AM EDT) Anatomical Region Laterality Modality Lower Extremities, Foot Left Computed Radiography Impressions 12/30/2021 12:18 PM EDT No fracture or dislocation in the left tib-fib, ankle, or foot. There is mild soft tissue swelling over the lateral malleolus. Soft tissue injury cannot be excluded.. CRITICAL RESULT: ?? No. COMMUNICATION: Per this written report. Approved by Mateo Villavicencio MD on 12/30/2021 10:29 AM By electronically signing this report, I, the attending physician, attest that I have personally reviewed the images/data for the above examination(s) and agree with the final edited report. Dictated by Mateo Villavicencio MD on 12/30/2021 10:29 AM Signed by Anat Travis MD on 12/30/2021 12:18 PM Narrative 12/30/2021 12:18 PM EDT Exam/Procedure: XR TIBIA FIBULA LEFT 2+ VIEWS ordered by MELANY SARMIENTO, [id number] CLINICAL INDICATION: Inversion injury, lateral mal tenderness TECHNIQUE: XR TIBIA FIBULA LEFT 2+ VIEWS, XR FOOT LEFT 3+ VIEWS, XR ANKLE LEFT 3+ VIEWS COMPARISON: None. FINDINGS: Left tib-fib: No fracture or dislocation. No suprapatellar effusion. Left ankle: Mild soft tissue swelling is noted. No fracture or dislocation. Talar dome spaces maintained. No widening of the medial clear space is noted. Left foot: No fracture or dislocation. Accessory navicular ossicle is noted. Procedure Note Anat Travis MD - 12/30/2021 Exam/Procedure: XR TIBIA FIBULA LEFT 2+ VIEWS ordered by MELANY MATHIS, [id number] CLINICAL INDICATION: Inversion injury, lateral mal tenderness TECHNIQUE: XR TIBIA FIBULA LEFT 2+ VIEWS, XR FOOT LEFT 3+ VIEWS, XR ANKLE LEFT 3+VIEWS COMPARISON: None. FINDINGS: Left tib-fib: No fracture or dislocation. No suprapatellar effusion. Left ankle: Mild soft tissue swelling is noted. No fracture ordislocation. Talar dome spaces maintained. No widening of the medial clearspace is noted. Left foot: No fracture or dislocation. Accessory navicular ossicle isnoted. IMPRESSION: No fracture or dislocation in the left tib-fib, ankle, or foot. There ismild soft tissue swelling over the lateral malleolus. Soft tissue injurycannot be excluded.. CRITICAL RESULT: No. COMMUNICATION: Per this written report. Approved by Mateo Villavicencio MD on 12/30/2021 10:29 AM By electronically signing this report, I, the attending physician, attestthat I have personally reviewed the images/data for the aboveexamination(s) and agree with the final edited report. Dictated by Mateo Villavicencio MD on 12/30/2021 10:29 AM Signed by Anat Travis MD on 12/30/2021 12:18 PM us Melany Sarmiento MD IMG XR PROCEDURES Final Res ult * XR Tibia Fibula Left 2+ Views (12/30/2021 9:49 AM EDT) Anatomical Region Laterality Modality Lower Extremities, Lower Leg Left Com puted Radiography Impressions 12/30/2021 12:18 PM EDT No fracture or dislocation in the left tib-fib, ankle, or foot. There is mild soft tissue swelling over the lateral malleolus. Soft tissue injury cannot be excluded.. CRITICAL RESULT: ?? No. COMMUNICATION: Per this written report. Approved by Mateo Villavicencio MD on 12/30/2021 10:29 AM By electronically signing this report, I, the attending physician, attest that I have personally reviewed the images/data for the above examination(s) and agree with the final edited report. Dictated by Mateo Villavicencio MD on 12/30/2021 10:29 AM Signed by Anat Travis MD on 12/30/2021 12:18 PM Narrative 12/30/2021 12:18 PM EDT Exam/Procedure: XR TIBIA FIBULA LEFT 2+ VIEWS ordered by MELANY SARMIENTO [id number] CLINICAL INDICATION: Inversion injury, lateral mal tenderness TECHNIQUE: XR TIBIA FIBULA LEFT 2+ VIEWS, XR FOOT LEFT 3+ VIEWS, XR ANKLE LEFT 3+ VIEWS COMPARISON: None. FINDINGS: Left tib-fib: No fracture or dislocation. No suprapatellar effusion. Left ankle: Mild soft tissue swelling is noted. No fracture or dislocation. Talar dome spaces maintained. No widening of the medial clear space is noted. Left foot: No fracture or dislocation. Accessory navicular ossicle is noted. Procedure Note Anat Travis MD - 12/30/2021 Exam/Procedure: XR TIBIA FIBULA LEFT 2+ VIEWS ordered by MELANY MATHIS [id number] CLINICAL INDICATION: Inversion injury, lateral mal tenderness TECHNIQUE: XR TIBIA FIBULA LEFT 2+ VIEWS, XR FOOT LEFT 3+ VIEWS, XR ANKLE LEFT 3+VIEWS COMPARISON: None. FINDINGS: Left tib-fib: No fracture or dislocation. No suprapatellar effusion. Left ankle: Mild soft tissue swelling is noted. No fracture ordislocation. Talar dome spaces maintained. No widening of the medial clearspace is noted. Left foot: No fracture or dislocation. Accessory navicular ossicle isnoted. IMPRESSION: No fracture or dislocation in the left tib-fib, ankle, or foot. There ismild soft tissue swelling over the lateral malleolus. Soft tissue injurycannot be excluded.. CRITICAL RESULT: No. COMMUNICATION: Per this written report. Approved by Mateo Villavicencio MD on 12/30/2021 10:29 AM By electronically signing this report, I, the attending physician, attestthat I have personally reviewed the images/data for the aboveexamination(s) and agree with the final edited report. Dictated by Mateo Villavicencio MD on 12/30/2021 10:29 AM Signed by Anat Travis MD on 12/30/2021 12:18 PM us Melany Sarmiento MD IMG XR PROCEDURES Final Res ult * XR Ankle Left 3+ Views (12/30/2021 9:49 AM EDT) Anatomical Region Laterality Modality Lower Extremities, Ankle Left Compute d Radiography Impressions 12/30/2021 12:18 PM EDT No fracture or dislocation in the left tib-fib, ankle, or foot. There is mild soft tissue swelling over the lateral malleolus. Soft tissue injury cannot be excluded.. CRITICAL RESULT: ?? No. COMMUNICATION: Per this written report. Approved by Mateo Villavicencio MD on 12/30/2021 10:29 AM By electronically signing this report, I, the attending physician, attest that I have personally reviewed the images/data for the above examination(s) and agree with the final edited report. Dictated by Mateo Villavicencio MD on 12/30/2021 10:29 AM Signed by Anat Travis MD on 12/30/2021 12:18 PM Narrative 12/30/2021 12:18 PM EDT Exam/Procedure: XR TIBIA FIBULA LEFT 2+ VIEWS ordered by MELANY SARMIENTO [id number] CLINICAL INDICATION: Inversion injury, lateral mal tenderness TECHNIQUE: XR TIBIA FIBULA LEFT 2+ VIEWS, XR FOOT LEFT 3+ VIEWS, XR ANKLE LEFT 3+ VIEWS COMPARISON: None. FINDINGS: Left tib-fib: No fracture or dislocation. No suprapatellar effusion. Left ankle: Mild soft tissue swelling is noted. No fracture or dislocation. Talar dome spaces maintained. No widening of the medial clear space is noted. Left foot: No fracture or dislocation. Accessory navicular ossicle is noted. Procedure Note Anat Travis MD - 12/30/2021 Exam/Procedure: XR TIBIA FIBULA LEFT 2+ VIEWS ordered by MELANY MATHIS [id number] CLINICAL INDICATION: Inversion injury, lateral mal tenderness TECHNIQUE: XR TIBIA FIBULA LEFT 2+ VIEWS, XR FOOT LEFT 3+ VIEWS, XR ANKLE LEFT 3+VIEWS COMPARISON: None. FINDINGS: Left tib-fib: No fracture or dislocation. No suprapatellar effusion. Left ankle: Mild soft tissue swelling is noted. No fracture ordislocation. Talar dome spaces maintained. No widening of the medial clearspace is noted. Left foot: No fracture or dislocation. Accessory navicular ossicle isnoted. IMPRESSION: No fracture or dislocation in the left tib-fib, ankle, or foot. There ismild soft tissue swelling over the lateral malleolus. Soft tissue injurycannot be excluded.. CRITICAL RESULT: No. COMMUNICATION: Per this written report. Approved by Mateo Villavicencio MD on 12/30/2021 10:29 AM By electronically signing this report, I, the attending physician, attestthat I have personally reviewed the images/data for the aboveexamination(s) and agree with the final edited report. Dictated by Mateo Villavicencio MD on 12/30/2021 10:29 AM Signed by Anat Travis MD on 12/30/2021 12:18 PM us Melany Sarmiento MD IMG XR PROCEDURES Final Res ult documented in this encounter Visit Diagnoses Diagnosis Sprain of left ankle, unspecified ligament, initial encounter- Primary documented in this encounter Administered Medications Inactive Administered Medications - up to 3 most recent administrations Medication Order MAR Action Action Date Dose Rate Site acetaminophen (Tylenol) tablet 1,000 mg 1,000 mg, Oral, Once, 1 dose, On Jeaneth 12/30/21 at 0920, Routine Given 12/30/2021 9:23 AM EDT 1,000 mg ibuprofen tablet 600 mg 600 mg, Oral, Once, 1 dose, On Jeaneth 12/30/21 at 0920, STAT Given 12/30/2021 9:23 AM EDT 600 mg documented in this encounter Active and Recently Administered Medications Times are shown in EDT. Scheduled Medication Order 12/28/2021 12/29/2021 12/30/2021 acetaminophen (Tylenol) tablet 1,000 mg (COMPLETED) 1,000 mg, Oral, Once, 1 dose, On Jeaneth 12/30/21 at 0920, Routine 0923 (Given - Provid er: Jeannine Sinclair) ibuprofen tablet 600 mg (COMPLETED) 600 mg, Oral, Once, 1 dose, On Jeaneth 12/30/21 at 0920, STAT 0923 (Given - Provid er: Jeannine Sinclair) documented in this encounter Care Teams Molding Associate Relationship Specialty Start Date End Date Corina Spence APRN [address] [place], [place] [id number] PCP - General 09/11/[address] [facility] [address] [place] [address] Brake Lining Curer Dietitian 11/24/20 01/11/24 documented as of this encounter
--- OUTSIDE RECORDS SUMMARY | 2024-03-13 16:28 | XMS_ITS | Encounter Summary ---
Author Organization Healthcare Address [address] [place] [address] Care Team Providers Care Marine Specialist Name Role Phone Corina Spence APRN Primary Care Provider [phone] Unavailable [phone] Encounter Details Date Type Department Care Team (Latest Contact Info) Description 10/09/2021 Travel Social History Tobacco Use Types Packs/Day Years Used Date Smoking Tobacco: Never Smokeless Tobacco: Never Alcohol Use Standard Drinks/Week Comments Never 0 (1 standard drink = 0.6 oz pur e alcohol) Joseph Depression Scale Answer Date Recorded Joseph Depression Scale Total 0 02/18/2021 The thought [...] AM EDT documented as of this encounter Plan of Treatment Upcoming Encounters Date Type Department Care Team (Late st Contact Info) Description 03/25/2024 8:00 AM EST Office Visit Obstetrics & Gynecology [address] [place] [address] Felice Camacho MD [address] [place] [address] 04/05/2024 9:00 AM EST Clinical Support Obstetrics & Gynecology [address] [place] [address] 05/03/2024 9:00 AM EST Clinical Support Obstetrics & Gynecology [address] [place] [address] 05/31/2024 9:00 AM EST Clinical Support Obstetrics & Gynecology [address] [place] [address] 06/28/2024 9:00 AM EST Clinical Support Obstetrics & Gynecology [facility] [place] [address] documented as of this encounter Visit Diagnoses Not on filedocumented in this encounter Care Teams Marine Specialist Relationship Specialty Start Date End Date Corina Spence APRN [address] [place] [address] PCP - General 09/11/[address] [address] Associate Professor Of Musicology Dietitian 11/24/20 01/11/24 documented as of this encounter
--- OUTSIDE RECORDS SUMMARY | 2024-03-13 16:28 | XMS_ITS | Encounter Summary ---
Author Organization Healthcare Address [address] [place] [address] Care Team Providers Care Medicine Man Name Role Phone Corina Spence APRN Primary Care Provider [phone] Unavailable [phone] Encounter Details Date Type Department Care Team (Latest Contact Info) Description 12/06/2023 Travel Social History Tobacco Use Types Packs/Day Years Used Date Smoking Tobacco: Every Day Cigarettes Smokeless Tobacco: Never Alcohol Use Standard Drinks/Week Comments Never 0 (1 standard drink = 0.6 oz pur e alcohol) PHQ-2 Answer Date Recorded Patient Health Questionnaire-2 Score 0 12/06/2023 [place] Depression Scale Answer Date Recorded [place] Depression Scale Total 0 02/18/2021 The thought [...] EST Office Visit Obstetrics & Gynecology [address] [place] [address] Felice Camacho MD [address] [place] [address] 04/05/2024 9:00 AM EST Clinical Support Obstetrics & Gynecology [address] [place] [address] 05/03/2024 9:00 AM EST Clinical Support Obstetrics & Gynecology [address] [place] [address] 05/31/2024 9:00 AM EST Clinical Support Obstetrics & Gynecology [address] [place] [address] 06/28/2024 9:00 AM EST Clinical Support Obstetrics & Gynecology [address] [place] [address] documented as of this encounter Visit Diagnoses Not on filedocumented in this encounter Additional Health Concerns Assessment Noted Time A fall risk assessment has been complete d for the patient 12/06/2023 2:31 PM EDT A Body Mass Index follow-up plan has been documented for the patient 12/06/2023 3:01 PM EDT documented as of this encounter Care Teams Medicine Man Relationship Specialty Start Date End Date Corina Spence, RECLAMATION KETTLE TENDER [facility] [place] [id number] PCP - General 09/11/[address] [place] [address] [address] Garment Parts Cutter Machine Dietitian 11/24/20 01/11/24 documented as of this encounter
--- OUTSIDE RECORDS SUMMARY | 2024-03-13 16:28 | XMS_ITS | Encounter Summary ---
Author Organization Healthcare Address [address] [place] [address] Care Team Providers Care Triage Register Nurse Name Role Phone Corina Spence APRN Primary Care Provider [phone] Unavailable [phone] Encounter Details Date Type Department Care Team (Latest Contact Info) Description 12/30/2021 Travel Social History Tobacco Use Types Packs/Day Years Used Date Smoking Tobacco: Never Smokeless Tobacco: Never Alcohol Use Standard Drinks/Week Comments Never 0 (1 standard drink = 0.6 oz pur e alcohol) [place] Depression Scale Answer Date Recorded [place] Depression Scale Total 0 02/18/2021 The thought [...] EST Office Visit Obstetrics & Gynecology [address] [place] [address] Felice Camacho MD [address] [place] [address] 04/05/2024 9:00 AM EST Clinical Support Obstetrics & Gynecology [address] [place] [address] 05/03/2024 9:00 AM EST Clinical Support Obstetrics & Gynecology [address] [place] [address] 05/31/2024 9:00 AM EST Clinical Support Obstetrics & Gynecology [address] [place] [address] 06/28/2024 9:00 AM EST Clinical Support Obstetrics & Gynecology [facility] [place] [address] documented as of this encounter Visit Diagnoses Not on filedocumented in this encounter Care Teams Triage Register Nurse Relationship Specialty Start Date End Date Corina Spence APRN [address] [place] [address] PCP - General 09/11/[address] [address] Loss Prevention Detective Dietitian 11/24/20 01/11/24 documented as of this encounter
--- OUTSIDE RECORDS SUMMARY | 2024-03-13 16:28 | XMS_ITS | Encounter Summary ---
Author Organization Healthcare Address [address] [place] [address] Care Team Providers Care Air Traffic Control Specialist Center Name Role Phone Corina Spence APRN Primary Care Provider [phone] Encounter Details Date Type Department Care Team (Latest Contact Info) Description 01/21/2024 Travel Social History Tobacco Use Types Packs/Day Years Used Date Smoking Tobacco: Every Day Cigarettes Smokeless Tobacco: Never Alcohol Use Standard Drinks/Week Comments Never 0 (1 standard drink = 0.6 oz pur e alcohol) PHQ-2 Answer Date Recorded Patient Health Questionnaire-2 Score 0 01/22/2024 [place] Depression Scale Answer Date Recorded [place] Depression Scale Total 0 02/18/2021 The thought [...] Visit Obstetrics & Gynecology [address] [place] [address] Felice Camacho MD [address] [place] [address] 04/05/2024 9:00 AM EST Clinical Support Obstetrics & Gynecology [address] [place] [address] 05/03/2024 9:00 AM EST Clinical Support Obstetrics & Gynecology [address] [place] [address] 05/31/2024 9:00 AM EST Clinical Support Obstetrics & Gynecology [address] [place] [address] 06/28/2024 9:00 AM EST Clinical Support Obstetrics & Gynecology [address] [place] [address] documented as of this encounter Visit Diagnoses Not on filedocumented in this encounter Additional Health Concerns Assessment Noted Time A fall risk assessment has been complete d for the patient 01/08/2024 10:56 AM EDT A Body Mass Index follow-up plan has been documented for the patient 01/08/2024 11:08 AM EDT documented as of this encounter Care Teams Air Traffic Control Specialist Center Relationship Specialty Start Date End Date Corina Spence APRN [facility] [place] [id number] PCP - General 09/11/20 documented as of this encounter
--- OUTSIDE RECORDS SUMMARY | 2024-03-13 16:28 | XMS_ITS | Encounter Summary ---
Author Organization Healthcare Address [address] [place] [address] Care Team Providers Care Chlorine Operator Name Role Phone Corina Spence APRN Primary Care Provider [phone]- [phone] Encounter Details Date Type Department Care Team (Late st Contact Info) Description 01/12/2024 Telephone Obstetrics & Gynecology [address] [place] [address] Felice Camacho MD [address] [place] [address] Social History Tobacco Use Types Packs/Day Years Used Date Smoking Tobacco: Every Day Cigarettes Smokeless Tobacco: Never Alcohol Use Standard Drinks/Week Comments Never 0 (1 standard drink = 0.6 oz pur e alcohol) PHQ-2 Answer Date Recorded Patient Health Questionnaire-2 Score 0 02/09/2024 [place] Depression Scale Answer Date Recorded [place] Depression Scale Total 0 02/18/2021 The thought of harming myself has occurred to me . Never 02/18/2021 Comments No Sex and Gender Information Value Date Recorded Sex Assigned at Not on file Legal Sex Female 8:38 PM EDT Gender Identity Not on file Sexual Orientation Bisexual 01/07/2024 3: 53 PM EDT documented as of this encounter Miscellaneous Notes * Telephone Encounter - Xuan Boss - 01/12/2024 9:00 AM EDT Clinical Concern/Question Reason for Call: Pt calling to advise nurse that she sent the pictures though My Chart of her incision area. Please call to discuss after reviewing. Best contact number: [phone] (mobile) Optimal time of day to reach caller: ANYTIME Additional comments/information from caller: None Note: Please do not reply to this message. Follow-up communication and further actions as a result of this message need to be communicated with the patient directly, if the patient is not active onMyChart. If the patient is active on MyChart, they will receive notification of the communication/outcome via MeUndieshart. documented in this encounter Plan of Treatment Upcoming Encounters Date Type Department Care Team (Late Contact Info) Description 03/25/2024 8:00 AM EST Office Visit Obstetrics & Gynecology [address] [place] [address] Felice Camacho MD [address] [place] [address] 04/05/2024 9:00 AM EST Clinical Support Obstetrics & Gynecology [address] [place] [address] 05/03/2024 9:00 AM EST Clinical Support Obstetrics & Gynecology [address] [place] [address] 05/31/2024 9:00 AM EST Clinical Support Obstetrics & Gynecology [address] [place] [address] 06/28/2024 9:00 AM EST Clinical Support Obstetrics & Gynecology [address] [place] [address] documented as of this encounter Visit Diagnoses Not on filedocumented in this encounter Additional Health Concerns Assessment Noted Time A fall risk assessment has been complete d for the patient 01/08/2024 10:56 AM EDT A Body Mass Index follow-up plan has been documented for the patient 01/08/2024 11:08 AM EDT documented as of this encounter Care Teams Chlorine Operator Relationship Specialty Start Date End Date Corina Spence APRN [facility] [place] [address] PCP - General 09/11/20 documented as of this encounter
--- OUTSIDE RECORDS SUMMARY | 2024-03-13 16:28 | XMS_ITS | Encounter Summary ---
Author Organization Healthcare Address [address] [place] [address] Care Team Providers Care Chicken Hatchery Helper Name Role Phone Corina Spence APRN Primary Care Provider [phone]- [phone] Unavailable [phone] Reason for Visit * Reason Comments Pelvic Pain Patient c/o right up per quad pain, thinks her endometriosis or adenomyosis is back/ and or is constipated Encounter Details Date Type Department Care Team (Late st Contact Info) Description 11/27/2023 1:15 PM EDT Office Visit Obstetrics & Gynecology [address] [place] [address] Felice Camacho MD [address] [place] [address] RUQ pain (Primary Dx); Secondary hypertension; Irregular menstruation, unspecified Social History Tobacco Use Types Packs/Day Years Used Date Smoking Tobacco: Every Day Cigarettes Smokeless Tobacco: Never Alcohol Use Standard Drinks/Week Comments Never 0 (1 standard drink = 0.6 oz pur e alcohol) PHQ-2 Answer Date Recorded Patient Health Questionnaire-2 Score 0 11/27/2023 [place] Depression Scale Answer Date Recorded [place] Depression Scale Total 0 02/18/2021 The thought [...] Sign Reading Time Taken Comments Blood Pressure 150/90 11/27/2023 1:10 PM EDT Pulse - - Temperature - - Respiratory Rate - - Oxygen Saturation - - Inhaled Oxygen Concentration - - Weight 57 kg (125 lb 10.6 oz) 11/27/2023 1:10 PM EDT Height - - Body Mass Index 19.68 12/15/2022 6:34 PM EDT documented in this encounter Miscellaneous Notes * Progress Notes - Felice Camacho MD - 11/27/2023 1:15 PM EDT Gynecology Progress Note Subjective 28 yo ( x 3) - has Nexplanon - 02/18/2021 - same as last Pap - scheduled for Exchange in01/2024. Now with days of RUQ pain radiating to ned-umbilical area - NO B/B issues. States has h/o endometriosis - nothing in record to address this in the last 3 years - on Nexplanonsuppression - states bled daily from August to September. Feels like she might be constipated as well. No fevers. Pelvic Pain Associated symptoms include abdominal pain. Review of Systems Constitutional: Negative. HENT: Negative. Eyes: Negative. Respiratory: Negative. Cardiovascular: Negative. Gastrointestinal: Positive for abdominal pain. Negative for abdominal distention. Endocrine: Negative. Genitourinary: Negative. Musculoskeletal: Negative. Skin: Negative. Allergic/Immunologic: Negative. Neurological: Negative. Hematological: Negative. Psychiatric/Behavioral: Negative. All other systems reviewed and are negative. Objective Visit Vitals BP (!) 150/90 Physical Exam Constitutional: Appearance: Normal appearance. She is normal weight. HENT: Head: Normocephalic and atraumatic. Right Ear: External ear normal. Left Ear: External ear normal. Pulmonary: Effort: Pulmonary effort is normal. Abdominal: General: Abdomen is flat. There is no distension. Palpations: Abdomen is soft. There is no mass. Tenderness: There is abdominal tenderness. There is no guarding or rebound. Hernia: No hernia is present. Comments: TTP Right UQ Musculoskeletal: General: Normal range of motion. Cervical [...] Diagnoses and all orders for this visit: RUQ pain Hypertension Irregular menses To ED now for evaluation of GB + APPY WWE + Nexplanon Exchange 02/19/2024 Will address VB issues after acute issues resolved A total of 20 minutes was spent [...] Visit Obstetrics & Gynecology [address] [place] [address] Felice Camacho MD [address] [place] [address] 04/05/2024 9:00 AM EST Clinical Support Obstetrics & Gynecology [address] [place] [address] 05/03/2024 9:00 AM EST Clinical Support Obstetrics & Gynecology [address] [place] [address] 05/31/2024 9:00 AM EST Clinical Support Obstetrics & Gynecology [address] [place] [address] 06/28/2024 9:00 AM EST Clinical Support Obstetrics & Gynecology [address] [place] [address] documented as of this encounter Visit Diagnoses Diagnosis RUQ pain- Primary Abdominal pain, right upper quadrant Secondary hypertension Other secondary hypertension, unspecified Irregular menstruation, unspecified documented in this encounter Additional Health Concerns Assessment Noted Time A fall risk assessment has been complete d for the patient 11/27/2023 1:11 PM EDT A Body Mass Index follow-up plan has been documented for the patient 11/27/2023 1:24 PM EDT documented as of this encounter Care Teams Chicken Hatchery Helper Relationship Specialty Start Date End Date Corina Spence APRN [facility] [place] [address] PCP - General 09/11/[address] [phone] Radiochemical Technician Dietitian 11/24/20 01/11/24 documented as of this encounter
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
--- OUTSIDE RECORDS SUMMARY | 2024-03-13 16:28 | XMS_ITS | Encounter Summary ---
Author Organization Healthcare Address [address] [place] [address] Care Team Providers Care Hadoop Application Developer Name Role Phone Corina Spenec APRN Primary Care Provider [phone]- [phone] Unavailable [phone] Encounter Details Date Type Department Care Team (Latest Contact Info) Description 12/15/2022 Travel Social History Tobacco Use Types Packs/Day Years Used Date Smoking Tobacco: Never Smokeless Tobacco: Never Alcohol Use Standard Drinks/Week Comments Never 0 (1 standard drink = 0.6 oz pur e alcohol) [place] Depression Scale Answer Date Recorded [place] Depression Scale Total 0 02/18/2021 The thought [...] EST Office Visit Obstetrics & Gynecology [address] [place] [address] Felice Camacho MD [address] [place] [address] 04/05/2024 9:00 AM EST Clinical Support Obstetrics & Gynecology [address] [place] [address] 05/03/2024 9:00 AM EST Clinical Support Obstetrics & Gynecology [address] [place] [address] 05/31/2024 9:00 AM EST Clinical Support Obstetrics & Gynecology [address] [place] [address] 06/28/2024 9:00 AM EST Clinical Support Obstetrics & Gynecology [address] [place] [address] documented as of this encounter Visit Diagnoses Not on filedocumented in this encounter Care Teams Hadoop Application Developer Relationship Specialty Start Date End Date Corina Spence APRN [address] [place] [id number] PCP - General 09/11/[address] [address] Oil Well Pumper Dietitian 11/24/20 01/11/24 documented as of this encounter
--- OUTSIDE RECORDS SUMMARY | 2024-03-13 16:29 | XMS_ITS | Encounter Summary ---
Author Organization Healthcare Address [address] [place] [address] Care Team Providers Care Relay Checker Name Role Phone Corina Spence APRN Primary Care Provider [phone]- [phone] Unavailable [phone] Encounter Details Date Type Department Care Team (Latest Contact Info) Description 12/24/2020 Travel Social History Tobacco Use Types Packs/Day Years Used Date Smoking Tobacco: Never Smokeless Tobacco: Never Alcohol Use Standard Drinks/Week Comments Never 0 (1 standard drink = 0.6 oz pur e alcohol) Comments Yes Sex and Gender Information Value Date Recorded Sex Assigned at Not on file Legal Sex Female 8:38 PM EDT Gender Identity Not on file Sexual Orientation Bisexual 01/07/2024 3: 53 PM EDT COVID-19 Exposure Response Date Recorded In the last month, have you been in contact with someone who was confirmed or suspected to have Coronavirus / COVID-19? No / Unsure 12/24/2020 10:08 AM EDT documented as of this encounter Plan of Treatment Upcoming Encounters Date Type Department Care Team (Late st Contact Info) Description 03/25/2024 8:00 AM EST Office Visit Obstetrics & Gynecology [address] [place] [address] Felice Camacho MD [address] [place] [address] 04/05/2024 9:00 AM EST Clinical Support Obstetrics & Gynecology [address] [place] [address] 05/03/2024 9:00 AM EST Clinical Support Obstetrics & Gynecology [address] [place] [address] 05/31/2024 9:00 AM EST Clinical Support Obstetrics & Gynecology [address] [place] [address] 06/28/2024 9:00 AM EST Clinical Support Obstetrics & Gynecology [address] [place] [address] documented as of this encounter Visit Diagnoses Not on filedocumented in this encounter Care Teams Relay Checker Relationship Specialty Start Date End Date Corina Spence APRN [facility] [place] [address] PCP - General 09/11/[address] [phone] Supervisor Lamp Shades Dietitian 11/24/20 01/11/24 documented as of this encounter
--- OUTSIDE RECORDS SUMMARY | 2024-03-13 16:29 | XMS_ITS | Encounter Summary ---
Author Organization Healthcare Address [address] [place] [address] Care Team Providers Care Shellacker Name Role Phone Corina Spence APRN Primary Care Provider [phone]- [phone] Unavailable [phone] Encounter Details Date Type Department Care Team (Latest Contact Info) Description 11/26/2020 Travel Social History Tobacco Use Types Packs/Day Years Used Date Smoking Tobacco: Never Comments Yes Sex and Gender Information Value Date Recorded Sex Assigned at Not on file Legal Sex Female 8:38 PM EDT Gender Identity Not on file Sexual Orientation Bisexual 01/07/2024 3: 53 PM EDT COVID-19 Exposure Response Date Recorded In the last month, have you been in contact with someone who was confirmed or suspected to have Coronavirus / COVID-19? No / Unsure 11/26/2020 9:41 AM EDT documented as of this encounter Plan of Treatment Upcoming Encounters Date Type Department Care Team (Late st Contact Info) Description 03/25/2024 8:00 AM EST Office Visit Obstetrics & Gynecology [address] [place] [address] Felice Camacho MD [address] [place] [address] 04/05/2024 9:00 AM EST Clinical Support Obstetrics & Gynecology [address] [place] [address] 05/03/2024 9:00 AM EST Clinical Support Obstetrics & Gynecology [address] [place] [address] 05/31/2024 9:00 AM EST Clinical Support Obstetrics & Gynecology [address] [place] [address] 06/28/2024 9:00 AM EST Clinical Support Obstetrics & Gynecology [address] [place] [address] documented as of this encounter Visit Diagnoses Not on filedocumented in this encounter Care Teams Shellacker Relationship Specialty Start Date End Date Corina Spence APRN [address] [place] [id number] PCP - General 09/11/[address] [address] Clipper Machine Operator Dietitian 11/24/20 01/11/24 documented as of this encounter
--- OUTSIDE RECORDS SUMMARY | 2024-03-13 16:29 | XMS_ITS | Encounter Summary ---
Author Organization [facility] Address [address] [place] [address] Care Team Providers Care Biomedical Engineering Technologist Name Role Phone Corina Spence APRN Primary Care Provider [phone] Unavailable [phone] Encounter Details Date Type Department Care Team (Late st Contact Info) Description 01/11/2021 10:00 AM EDT Routine Obstetrics & Gynecology [address] [place] [address] Felice Camacho MD [address] [place] [address] Normal , incidental (Primary Dx); Diet controlled gestational diabetes mellitus (GDM) in third trimester Social History Tobacco Use Types Packs/Day Years [...] have Coronavirus / COVID-19? No / Unsure 01/11/2021 10:03 AM EDT documented as of this encounter Last Filed Vital Signs Vital Sign Reading Time Taken Comments Blood Pressure 126/77 01/11/2021 10:27 AM EDT Pulse - - Temperature - - Respiratory Rate - - Oxygen Saturation - - Inhaled Oxygen Concentration - - Weight 66.1 kg (145 lb 11.6 oz) 021 10:27 AM EDT Height - - Body Mass Index 22.82 09/30/2020 11:29 AM EDT documented in this encounter Miscellaneous Notes * Significant Event - Felice Camacho MD - 01/11/2021 10:47 AM EDT 01/11/21 1047 Non-Stress Baby A Reason for Non-Stress Test Diabetes Variability in Waveform for Baby A 6-25 BPM Decelerations in Baby A None Accelerations in Baby A Yes Acoustic Stimulator for Baby A No Baseline Heart Rate for Baby A 130 BPM Uterine Irritability for Baby A Yes Contractions in Baby A Irregular Interpretation of Non-Stress Test Interpretation of Non-Stress Test Reactive $ NST Charge 1 * Progress Notes - Felice Camacho MD - 01/11/2021 10:00 AM EDT Subjective No chief complaint on file. Byron Smith is a 25 y.o. at 35w5d with a working estimated date of delivery of 02/10/2021, by Last Menstrual Period who presents for a routine visit. She denies vaginal bleeding, leakage of fluid, decreased movements, or regular contractions. Her is complicated by: GDM A1 The following portions of the chart were reviewed this encounter and updated as appropriate: ALL Objective Physical Exam Weight: 66.1 kg (145 lb 11.6 oz) Expected Total Weight Gain: Could not be calculated Pregravid BMI: Could not be calculated BP: 126/77 Heart Rate: NST Labs Urine dip: neg/neg HGB (g/dL) Date/Time Value 10/29/2020 1027 11.6 HCT (%) Date/Time Value 10/29/2020 1027 35.1 ABO/Rh (no units) Date/Time Value 06/17/2020 1043 A POSITIVE Antibody Screen (no units) Date/Time Value 06/17/2020 1043 NEGATIVE Hepatitis B Surf Antigen (no units) Date/Time Value 06/17/2020 1043 NEGATIVE Reference Value: Negative MIGUEL-A (no units) Date/Time Value 08/03/2020 1354 See patient's chart for results. Test (no units) Date/Time Value 08/03/2020 1354 See patient's chart for results. GTT - Fasting (mg/dL) Date/Time Value 11/09/2020 0811 92 GTT - 1 Hour (mg/dL) Date/Time Value 11/09/2020 0915 207 (H) GTT - 2 Hour (mg/dL) Date/Time Value 11/09/2020 1014 165 (H) GTT - 3 Hour (mg/dL) Date/Time Value 11/09/2020 1114 138 NST - Reactive Assessment/Plan Diagnoses and all orders for this visit: Normal , incidental - Urine dip Diet controlled gestational diabetes mellitus (GDM) in third trimester Continue vitamin. Labs reviewed. GBS at 36 weeks Expected mode of delivery Follow up in 2x/week for a routine visit w/ NSTs documented in this encounter Plan of Treatment Upcoming Encounters Date Type Department Care Team (Late st Contact Info) Description 03/25/2024 8:00 AM EST Office Visit Obstetrics & Gynecology [address] [place] [address] Felice Camacho MD [address] [place] [address] 04/05/2024 9:00 AM EST Clinical Support Obstetrics & Gynecology [address] [place] [address] 05/03/2024 9:00 AM EST Clinical Support Obstetrics & Gynecology [address] [address] 05/31/2024 9:00 AM EST Clinical Support Obstetrics & Gynecology [address] [place] [address] 06/28/2024 9:00 AM EST Clinical Support Obstetrics & Gynecology [address] [place] [address] documented as of this encounter Procedures Procedure Name Priority Date/Time Associated Diagnosis Comments POCT URINALYSIS DIPSTICK Routine 01/11/2021 10:29 AM EDT Normal , incidental documented in this encounter Results * Urine dip (01/11/2021 10:29 AM EDT) POCT Glucose Urine Negative Negative mg/dL POCT Bilirubin, Urine Negative Negative POCT Ketones, Urine Negative Negative mg/dL POCT Blood, Urine Negative Negative POCT Protein, Urine Negative Negative mg/dL POCT Urobilinogen, Urine 0.2 0.2, 1.0 E.U./dL POCT Nitrite, Urine Negative Negative POCT Leukocyte Esterase, Urine Negative Negative Urine Urine specimen obtained by clean catch procedure / Unknown 01/11/2021 10:29 AM EDT Felice Camacho MD POINT OF CARE TEST ENTER/EDIT O RDERABLES Final Result documented in this encounter Visit Diagnoses Diagnosis Normal , incidental- Primary Diet controlled gestational diabetes mellitus (GDM) in third trimester documented in this encounter Care Teams Biomedical Engineering Technologist Relationship Specialty Start Date End Date Corina Spence APRN [facility] [place] [address] PCP - General 09/11/[address] [address] Drum Handler Dietitian 11/24/20 01/11/24 documented as of this encounter
--- OUTSIDE RECORDS SUMMARY | 2024-03-13 16:29 | XMS_ITS | Encounter Summary ---
Author Organization [facility] Address [address] [place] [address] Care Team Providers Care Manager Lab Name Role Phone Corina Spence APRN Primary Care Provider +1- [phone] Unavailable [phone] Encounter Details Date Type Department Care Team (Latest Contact Info) Description 01/08/2021 Travel Social History Tobacco Use Types Packs/Day [...] have Coronavirus / COVID-19? No / Unsure 01/08/2021 10:02 AM EDT documented as of this encounter Plan of Treatment Upcoming Encounters Date Type Department Care Team (Late st Contact Info) Description 03/25/2024 8:00 AM EST Office Visit Obstetrics & Gynecology [address] [place] [address] Felice Camacho MD [address] [place] [address] 04/05/2024 9:00 AM EST Clinical Support Obstetrics & Gynecology [address] [place] [address] 05/03/2024 9:00 AM EST Clinical Support Obstetrics & Gynecology [address] [place] [address] 05/31/2024 9:00 AM EST Clinical Support Obstetrics & Gynecology [address] [place] [address] 06/28/2024 9:00 AM EST Clinical Support Obstetrics & Gynecology [address] [place] [address] documented as of this encounter Visit Diagnoses Not on filedocumented in this encounter Care Teams Manager Lab Relationship Specialty Start Date End Date Corina Spence APRN [facility] [place] [address] PCP - General 09/11/[address] [phone] Radio Announcer Dietitian 11/24/20 01/11/24 documented as of this encounter
--- OUTSIDE RECORDS SUMMARY | 2024-03-13 16:29 | XMS_ITS | Encounter Summary ---
Author Organization [facility] Address [address] [place] [address] Care Team Providers Care Events Administrative Assistant Name Role Phone Corina Spence APRN Primary Care Provider [phone]- [phone] Unavailable [phone] Reason for Visit * Reason Comments Procedure patient overall doin g stephanie Encounter Details Date Type Department Care Team (Late st Contact Info) Description 12/24/2020 10:00 AM EDT Routine Obstetrics & Gynecology [address] [place] [address] Felice Camacho MD [address] [place] [address] Normal , incidental (Primary Dx); [...] Sign Reading Time Taken Comments Blood Pressure 133/88 12/24/2020 10:24 AM EDT Pulse - - Temperature - - Respiratory Rate - - Oxygen Saturation - - Inhaled Oxygen Concentration - - Weight - - Height - - Body Mass Index - - documented in this encounter Miscellaneous Notes * Significant Event - Felice Camacho MD - 12/24/2020 10:51 AM EDT 12/24/20 1050 Non-Stress Baby A Reason for Non-Stress Test [...] Progress Notes - Felice Camacho MD - 12/24/2020 10:00 AM EDT Subjective Chief Complaint Patient presents with ??? Procedure patient overall doing well Byron Smith is a 25 y.o. at 33w1d with a working estimated date of delivery of 02/10/2021, by Last Menstrual Period who presents for a routine visit. She denies vaginal bleeding, leakage of fluid, decreased movements, or regular contractions. Some BH CTXS. Her is complicated by: GDM A1 H/O PTB at 36 weeks The following portions of the chart were reviewed this encounter and updated as appropriate: ALL Objective Physical Exam Expected Total Weight Gain: Could not be calculated Pregravid BMI: Could not be calculated BP: 133/88 Heart Rate: NST Labs Urine dip: neg/neg [...] EST Office Visit Obstetrics & Gynecology [address] [place] [address] Felice Camacho MD [address] [place] [address] 04/05/2024 9:00 AM EST Clinical Support Obstetrics & Gynecology [address] [place] [address] 05/03/2024 9:00 AM EST Clinical Support Obstetrics & Gynecology [address] [place] [address] 05/31/2024 9:00 AM EST Clinical Support Obstetrics & Gynecology [address] [place] [address] 06/28/2024 9:00 AM EST Clinical Support [facility] [address] [place] [address] documented as of this encounter Procedures Procedure Name Priority Date/Time Associated Diagnosis Comments POCT URINALYSIS DIPSTICK Routine 12/24/2020 10:26 AM EDT Normal , incidental documented in this encounter Results * Urine dip (12/24/2020 10:26 AM EDT) POCT Glucose Urine Negative Negative mg/dL POCT Bilirubin, Urine Negative Negative POCT Ketones, Urine Negative Negative mg/dL POCT Blood, Urine Negative Negative POCT Protein, Urine Negative Negative mg/dL POCT Urobilinogen, Urine 0.2 0.2, 1.0 E.U./dL POCT Nitrite, Urine Negative Negative POCT Leukocyte Esterase, Urine Negative Negative Urine Urine specimen obtained by clean catch procedure / Unknown 12/24/2020 10:26 AM EDT Felice Camacho MD POINT OF CARE TEST ENTER/EDIT O RDERABLES Final Result documented in this encounter Visit Diagnoses Diagnosis Normal , incidental- Primary Diet controlled gestational diabetes mellitus (GDM) in third trimester documented in this encounter Care Teams Events Administrative Assistant Relationship Specialty Start Date End Date Corina Spence APRN [facility] [place] [address] PCP - General 09/11/[address] [facility] [address] [place] [phone] Spin Table Operator Dietitian 11/24/20 01/11/24 documented as of this encounter
--- OUTSIDE RECORDS SUMMARY | 2024-03-13 16:29 | XMS_ITS | Encounter Summary ---
Author Organization [facility] Address [address] [place] [address] Care Team Providers Care Health Care Aide Name Role Phone Corina Spence APRN Primary Care Provider +1- [phone] Unavailable [phone] Encounter Details Date Type Department Care Team (Latest Contact Info) Description 01/14/2021 Travel Social History Tobacco Use Types Packs/Day [...] have Coronavirus / COVID-19? No / Unsure 01/14/2021 8:01 AM EDT documented as of this encounter Plan of Treatment Upcoming Encounters Date Type Department Care Team (Late st Contact Info) Description 03/25/2024 8:00 AM EST Office Visit Obstetrics & Gynecology [address] [place] [address] Felice Camacho MD [address] [place] [address] 04/05/2024 9:00 AM EST Clinical Support Obstetrics & Gynecology [address] [place] [address] 05/03/2024 9:00 AM EST Clinical Support Obstetrics & Gynecology [address] [place] [address] 05/31/2024 9:00 AM EST Clinical Support Obstetrics & Gynecology [address] [place] [address] 06/28/2024 9:00 AM EST Clinical Support Obstetrics & Gynecology [address] [place] [address] documented as of this encounter Visit Diagnoses Not on filedocumented in this encounter Care Teams Health Care Aide Relationship Specialty Start Date End Date Corina Spence APRN [facility] [place] [address] PCP - General 09/11/[address] [phone] Investor Dietitian 11/24/20 01/11/24 documented as of this encounter
--- OUTSIDE RECORDS SUMMARY | 2024-03-13 16:29 | XMS_ITS | Encounter Summary ---
Author Organization [facility] Address [address] [place] [address] Care Team Providers Care Online Journalist Name Role Phone Corina Spence APRN Primary Care Provider [phone]- [phone] Unavailable [phone] Encounter Details Date Type Department Care Team (Latest Contact Info) Description 01/11/2021 Travel Social History Tobacco Use Types Packs/Day [...] EST Office Visit Obstetrics & Gynecology [address] [place] [address] Felice Camacho MD [address] [place] [address] 04/05/2024 9:00 AM EST Clinical Support Obstetrics & Gynecology [address] [place] [address] 05/03/2024 9:00 AM EST Clinical Support Obstetrics & Gynecology [address] [place] [address] 05/31/2024 9:00 AM EST Clinical Support Obstetrics & Gynecology [address] [place] [address] 06/28/2024 9:00 AM EST Clinical Support Obstetrics & Gynecology [address] [place] [address] documented as of this encounter Visit Diagnoses Not on filedocumented in this encounter Care Teams Online Journalist Relationship Specialty Start Date End Date Corina Spence APRN [facility] [place] [address] PCP - General 09/11/[address] [phone] Instructional Writer Dietitian 11/24/20 01/11/24 documented as of this encounter
--- OUTSIDE RECORDS SUMMARY | 2024-03-13 16:29 | XMS_ITS | Encounter Summary ---
Author Organization [facility] Address [address] [place] [address] Care Team Providers Care Butcher Name Role Phone Corina Spence APRN Primary Care Provider [phone]- [phone] Unavailable [phone] Reason for Visit * Reason Comments NST/BPP Visit Patient overall doin g well, having on and off contractions with pain, cant leave a urine today Encounter Details Date Type Department Care Team (Late st Contact Info) Description 01/18/2021 9:15 AM EDT Routine Obstetrics & Gynecology [address] [place] [address] Felice Camacho MD [address] [place] [address] High risk due to history of labor in third trimester (Primary Dx); Diet controlled gestational diabetes mellitus [...] have Coronavirus / COVID-19? No / Unsure 01/18/2021 9:15 AM EDT documented as of this encounter Last Filed Vital Signs Vital Sign Reading Time Taken Comments Blood Pressure 119/78 01/18/2021 9:23 AM EDT Pulse - - Temperature - - Respiratory Rate - - Oxygen Saturation - - Inhaled Oxygen Concentration - - Weight 69.7 kg (153 lb 10.6 oz) 01/18/2021 9:23 AM EDT Height - - Body Mass Index 24.07 09/30/2020 11:29 AM EDT documented in this encounter Miscellaneous Notes * Significant Event - Felice Camacho MD - 01/18/2021 9:50 AM EDT 01/18/21 0950 Non-Stress Baby A Reason for Non-Stress Test Diabetes Variability in Waveform for Baby A 6-25 BPM Decelerations in Baby A None Accelerations in Baby A Yes Acoustic Stimulator for Baby A No Baseline Heart Rate for Baby A 120 BPM Uterine Irritability for Baby A Yes Contractions in Baby A Irregular Interpretation of Non-Stress Test Interpretation of Non-Stress Test Reactive $ NST Charge 1 * Progress Notes - Felice Camacho MD - 01/18/2021 9:15 AM EDT Subjective Chief Complaint Patient presents with ??? NST/BPP Visit Patient overall doing well, having on and off contractions with pain, cant leave a urine today Byron Smith is a 25 y.o. at 36w5d with a working estimated date of delivery of 02/10/2021, by Last Menstrual Period who presents for a routine visit. She denies vaginal bleeding, leakage of fluid, decreased movements, or regular contractions. LOTS of BH CTXS. BGs OK. Her is complicated by: GDM A1 The following portions of the chart were reviewed this encounter and updated as appropriate: Objective Physical Exam Weight: 69.7 kg (153 lb 10.6 oz) Expected Total Weight Gain: Could not be calculated Pregravid BMI: Could not be calculated BP: 119/78 Heart Rate: nst Labs Urine dip: NA HGB (g/dL) Date/Time Value 10/29/2020 1027 11.6 [...] Diagnoses and all orders for this visit: High risk due to history of labor in third trimester Diet controlled gestational diabetes mellitus (GDM) in third trimester Continue vitamin. Labs reviewed. GBS NEG Expected mode of delivery Follow up in 2x/week for a routine visit w/ NSTs documented in this encounter Plan of Treatment Upcoming Encounters Date Type Department Care Team (Late st Contact Info) Description 03/25/2024 8:00 AM EST Office Visit Obstetrics & Gynecology [address] [place] [address] Felice Camacho MD [address] [place] [address] 04/05/2024 9:00 AM EST Clinical Support Obstetrics & Gynecology [address] [place] [address] 05/03/2024 9:00 AM EST Clinical Support Obstetrics & Gynecology [address] [place] [address] 05/31/2024 9:00 AM EST Clinical Support Obstetrics & Gynecology [address] [place] [address] 06/28/2024 9:00 AM EST Clinical Support Obstetrics & Gynecology [address] [place] [address] documented as of this encounter Visit Diagnoses Diagnosis High risk due to history of labor in third trimester- Primary Diet controlled gestational diabetes mellitus (GDM) in third trimester documented in this encounter Care Teams Butcher Relationship Specialty Start Date End Date Corina Spence APRN [facility]0 [place] [id number] PCP - General 09/11/[address] [phone] Commercial Litigation Attorney Dietitian 11/24/20 01/11/24 documented as of this encounter
--- OUTSIDE RECORDS SUMMARY | 2024-03-13 16:29 | XMS_ITS | Encounter Summary ---
Author Organization [facility] Address [address] [place] [address] Care Team Providers Care Internal Medicine Hospitalist Name Role Phone Corina Spence APRN Primary Care Provider [phone]- [phone] Reason for Referral * Consultation (Routine) - Closed Specialty Diagnoses / Procedures Referred By Contac t Referred To Contact Diabetes Services Diagnoses Diet controlled gestational diabetes mellitus (GDM) in second trimester Felice Camacho MD [address] [place] [address] Phone: tel: fax: Referral ID Status Reason Start Date Expiration Date Visits Re quested Visits Authorized [id number] Closed 11/11/2020 05/10/2021 1 1 Scheduling Instructions Failed 3 hr gtt, 1 hr of 207, 2 hr of 165 Encounter Details Date Type Department Care Team (Late st Contact Info) Description 11/11/2020 Education Medical Office Building Obstetrics and Gynecology [address] [facility], [address] [place] [address] Korin Kathleen RN AMB-GS [facility] [address] [place] [address] Diet controlled gestational diabetes mellitus (GDM) in second trimester (Primary Dx) Social History Tobacco Use Types [...] have Coronavirus / COVID-19? No / Unsure 11/09/2020 7:52 AM EDT documented as of this encounter Plan of Treatment Upcoming Encounters Date Type Department Care Team (Late st Contact Info) Description 03/25/2024 8:00 AM EST Office Visit Obstetrics & Gynecology [address] [place] [address] Felice Camacho MD [address] [place] [address] 04/05/2024 9:00 AM EST Clinical Support Obstetrics & Gynecology [address] [place] [address] 05/03/2024 9:00 AM EST Clinical Support Obstetrics & Gynecology [address] [place] [address] 05/31/2024 9:00 AM EST Clinical Support Obstetrics & Gynecology [address] [place] [address] 06/28/2024 9:00 AM EST Clinical Support Obstetrics & Gynecology [address] [place] [address] Scheduled Referrals Name Type Priority Associated Diagnoses Orde r Schedule Ambulatory Referral to [facility] Gestational Diabetes Education Outpatient Referral Routine Diet controlled gestational diabetes mellitus (GDM) in second trimester Expected: 11/11/2020 (Approximate), Expires: 12/12/2020 documented as of this encounter Visit Diagnoses Diagnosis Diet controlled gestational diabetes mellitus (GDM) in second trimester- Primary documented in this encounter Care Teams Internal Medicine Hospitalist Relationship Specialty Start Date End Date Corina Spence APRN [facility]0 [place] [phone] PCP - General 09/11/20 documented as of this encounter
--- OUTSIDE RECORDS SUMMARY | 2024-03-13 16:29 | XMS_ITS | Encounter Summary ---
Author Organization [facility] Address [address] [place] [address] Care Team Providers Care Side Door Man Name Role Phone Corina Spence APRN Primary Care Provider +1- [phone] Unavailable [phone] Encounter Details Date Type Department Care Team (Latest Contact Info) Description 12/28/2020 Travel Social History Tobacco Use Types Packs/Day [...] or suspected to have Coronavirus / COVID-19? Unable to assess 12/28/2020 10:22 AM EDT documented as of this encounter Plan of Treatment Upcoming Encounters Date Type Department Care Team (Late st Contact Info) Description 03/25/2024 8:00 AM EST Office Visit Obstetrics & Gynecology [address] [place] [address] Felice Camacho MD [address] [place] [address] 04/05/2024 9:00 AM EST Clinical Support Obstetrics & Gynecology [address] [place] [address] 05/03/2024 9:00 AM EST Clinical Support Obstetrics & Gynecology [address] [place] [address] 05/31/2024 9:00 AM EST Clinical Support Obstetrics & Gynecology [address] [place] [address] 06/28/2024 9:00 AM EST Clinical Support Obstetrics & Gynecology [address] [place] [address] documented as of this encounter Visit Diagnoses Not on filedocumented in this encounter Care Teams Side Door Man Relationship Specialty Start Date End Date Corina Spence APRN [address] [place] [address] PCP - General 09/11/[address] [phone] Relay Record Clerk Dietitian 11/24/20 01/11/24 documented as of this encounter
--- OUTSIDE RECORDS SUMMARY | 2024-03-13 16:29 | XMS_ITS | Encounter Summary ---
Author Organization [facility] Address [address] [place] [address] Care Team Providers Care Sound Truck Operator Name Role Phone Corina Spence APRN Primary Care Provider +1- [phone] Unavailable [phone] Reason for Visit * Reason Comments NST/BPP Visit patient overall sonja rose well, pantera leave a urine today Encounter Details Date Type Department Care Team (Late st Contact Info) Description 12/21/2020 10:00 AM EDT Routine [facility] [address] [place] [address] Felice Camacho MD [address] [place] [address] Diet controlled gestational diabetes mellitus (GDM) in third trimester (Primary Dx); Supervision of other high risk pregnancies, third trimester Social History Tobacco Use Types [...] have Coronavirus / COVID-19? No / Unsure 12/21/2020 9:43 AM EDT documented as of this encounter Last Filed Vital Signs Vital Sign Reading Time Taken Comments Blood Pressure 121/80 12/21/2020 10:12 AM EDT Pulse - - Temperature - - Respiratory Rate - - Oxygen Saturation - - Inhaled Oxygen Concentration - - Weight 68.9 kg (151 lb 14.4 oz) 021 10:12 AM EDT Height - - Body Mass Index 23.79 09/30/2020 11:29 AM EDT documented in this encounter Miscellaneous Notes * Significant Event - Felice Camacho MD - 12/21/2020 10:41 AM EDT 12/21/20 1041 Non-Stress Baby A Reason for Non-Stress Test Diabetes Variability in Waveform for Baby A 6-25 BPM Decelerations in Baby A None Accelerations in Baby A Yes Acoustic Stimulator for Baby A No Baseline Heart Rate for Baby A 130 BPM Uterine Irritability for Baby A Yes Contractions in Baby A Not present Interpretation of Non-Stress Test Interpretation of Non-Stress Test Reactive $ NST Charge 1 * Progress Notes - Felice Camacho MD - 12/21/2020 10:00 AM EDT Subjective Chief Complaint Patient presents with ??? NST/BPP Visit patient overall doing well, cant leave a urine today Byron Smith is a 25 y.o. at 32w5d with a working estimated date of delivery of 02/10/2021, by Last Menstrual Period who presents for a routine visit. She denies vaginal bleeding, leakage of fluid, decreased movements, or regular contractions. Her is complicated by: GDM A1 H/O PTB The following portions of the chart were reviewed this encounter and updated as appropriate: ALL Objective Physical Exam Weight: 68.9 kg (151 lb 14.4 oz) Expected Total Weight Gain: Could not be calculated Pregravid BMI: Could not be calculated BP: 121/80 Heart Rate: NST Labs Urine dip: NA HGB (g/dL) Date/Time [...] Diagnoses and all orders for this visit: Diet controlled gestational diabetes mellitus (GDM) in third trimester Supervision of other high risk pregnancies, third trimester Continue vitamin. Labs reviewed. GBS at 36 weeks Expected mode of delivery Follow up in 2x/week for a routine visit w/ NSTs HYDRATE. REST. documented in this encounter Plan of Treatment Upcoming Encounters Date Type Department Care Team (Late st Contact Info) Description 03/25/2024 8:00 AM EST Office Visit Obstetrics & Gynecology [address] [place] [address] Felice Camacho MD [address] [place] [address] 04/05/2024 9:00 AM EST Clinical Support Obstetrics & Gynecology [address] [place] [address] 05/03/2024 9:00 AM EST Clinical Support Obstetrics & Gynecology [address] [place] [address] 05/31/2024 9:00 AM EST Clinical Support Obstetrics & Gynecology [address] [place] [address] 06/28/2024 9:00 AM EST Clinical Support Obstetrics & Gynecology [address] [place] [address] documented as of this encounter Visit Diagnoses Diagnosis Diet controlled gestational diabetes mellitus (GDM) in third trimester- Primary Supervision of other high risk pregnancies, third trimester documented in this encounter Care Teams Sound Truck Operator Relationship Specialty Start Date End Date Corina Spence APRN [address] [place] [address] PCP - General 09/11/[address] [address] Record Pressman Dietitian 11/24/20 01/11/24 documented as of this encounter
--- OUTSIDE RECORDS SUMMARY | 2024-03-13 16:29 | XMS_ITS | Encounter Summary ---
Author Organization Healthcare Address [address] [place] [address] Care Team Providers Care Construction Producer Name Role Phone Corina Spence APRN Primary Care Provider [phone] Unavailable [phone] Reason for Visit * Reason Comments Routine Visit passed out over t weekend. Having hard time feeling full. Encounter Details Date Type Department Care Team (Late st Contact Info) Description 12/07/2020 4:15 PM EDT Routine Obstetrics & Gynecology [address] [place] [address] Lisa Cole APRN, [facility] [address] [place] [address] Supervision of other high risk pregnancies, third trimester (Primary Dx); Diet controlled gestational diabetes mellitus (GDM) in third trimester; Fall, initial encounter; Smoker Social History Tobacco Use Types Packs/Day Years [...] have Coronavirus / COVID-19? No / Unsure 12/07/2020 4:01 PM EDT documented as of this encounter Last Filed Vital Signs Vital Sign Reading Time Taken Comments Blood Pressure 112/73 12/07/2020 4:07 PM EDT Pulse - - Temperature - - Respiratory Rate - - Oxygen Saturation - - Inhaled Oxygen Concentration - - Weight 67.8 kg (149 lb 7.6 oz) 12/07/2020 4:07 P M EDT Height - - Body Mass Index 23.41 09/30/2020 11:29 AM EDT documented in this encounter Miscellaneous Notes * Patient Instructions - Lisa Cole - 12/07/2020 4:15 PM EDT Images from the original note were not included. Patient Education How to Quit Smoking Smoking is a hard habit to break. About 50% of all??people who have ever smoked have been able to quit. Most people??who still smoke want to quit. Here are some of the best ways to stop smoking. Keep in mind the health benefits of quitting The health benefits of quitting start right away. They keep improving the longer you go without smoking. Knowing this can help inspire you to stay on track. These benefits occur at any age. If you are 17 or 70, quitting is a good choice. Some of the health benefits after your last cigarette include: ?? After 20 minutes: Your blood pressure and pulse return to normal. ?? After 8 hours: Your oxygen levels return to normal. ?? After 2 days: Your ability to smell and taste start to improve as damaged nerves regrow. ?? After 2 to 3 weeks: Your circulation and lung function improve. ?? After 1 to 9 months: Your coughing, congestion, and shortness of breath decrease. Your tirednessdecreases. ?? After 1 year: Your risk of heart attack decreases by 50%. ?? After 5 years: Your risk of lung cancer decreases by 50%. Your risk of stroke becomes the same as a nonsmoker???s. Go cold turkey Most??former smokers quit cold turkey. This means stopping all at once. Trying to cut back slowly often doesn't work as well. This may be because it continues the habit of smoking. Also you may inhale more smoke while smoking fewer cigarettes. This leads to the same amount of nicotine in your body. Get support Support programs can be a big help, especially for heavy smokers. These groups offer lectures, waysto change behavior, and peer support. Here are some ways to find a support program: ?? Free national quitline 229-KYNE-SQK (284-309-5126) ?? Hospital quit-smoking programs ?? [place] [employer] 157-093-8563 ?? [employer] 425-521-9772 Support at home is important too. Family and friends can offer praise and reassurance. If the smoker in your life finds it hard to quit, encourage them to keep trying. Try ksps-upw-pyekfsi medicine Nicotine replacement therapy??may make it??easier to quit. Some aids are available without a prescription. These include a nicotine patch, gum, and lozenges. But it's best to use these under the careof your healthcare provider. The skin patch gives a steady supply of nicotine. Nicotine gum and lozenges give??short-time doses of low levels of nicotine. Both methods reduce the craving for cigarettes. If you??have nausea, vomiting, dizziness, weakness, or a fast heartbeat, stop using these products. See your provider. Ask about prescription medicine After reviewing??your smoking patterns and past attempts to quit, your healthcare provider may offer a prescription medicine such as bupropion, varenicline, a nicotine inhaler, or nasal spray. Each has advantages and side effects. Your provider can review these with you. Keep trying Most smokers make many attempts at quitting before they succeed. It???s important not to give up. To learn more For more on how to quit smoking, try these resources:? www.cdc.gov/tobacco/quit_smoking/ 075-GSPG-GMF (303-431-7069) ?? www.smokefree.gov 513-53T-VUIF (133-835-1693) ?? www.lung.org/stop-smoking/ 800-LUNGUSA (027-004-3699) [employer] last reviewed this educational content on 03/31/2019 ?? 0759-3636 [employer]. [address] [place] [address], [place] [address]. All rights reserved. This information is not intended as a substitute for professional medical care. Always follow your healthcare professional's instructions. * Progress Notes - Lisa Cole - 12/07/2020 4:15 PM EDT Subjective Chief Complaint Patient presents with ??? Routine Visit passed out over the weekend. Having hard time feeling full. Byron Smith is a 25 y.o. 30w5d 02/10/2021, by Last Menstrual Period who presentsfor a problem visit. She denies vaginal bleeding, leakage of fluid, decreased movements, or contractions. Passed out this past weekend and fell on back. Reports +FM. States thinks got up in the night to get a snack b/c blood sugar was low and that is all really remembers except for helping her get up. Reports continued nausea and vomiting every morning. Still smoking 1/2 PPD Reports FSBS fastings <95 and 2hr 125 or < but did not bring logs. Discussed dietary choices and protein intake specifically. Assessment/Plan Diagnoses and all orders for this visit: Supervision of other high risk pregnancies, third trimester Diet controlled gestational diabetes mellitus (GDM) in third trimester Fall, initial encounter Smoker Other orders - nicotine (Nicoderm CQ) 14 MG/24HR patch; Place 1 patch on the skin 1 (one) time each day at the same time. - nicotine (Nicotrol) 10 MG inhaler; Inhale 1 puff if needed for smoking cessation. - famotidine (Pepcid) 20 MG tablet; Take 2 tablets (40 mg total) by mouth 2 (two) times a day. [facility] enc Continue vitamin. Follow up -keep documented in this encounter Plan of Treatment Upcoming Encounters Date Type Department Care Team (Late st Contact Info) Description 03/25/2024 8:00 AM EST Office Visit Obstetrics & Gynecology [address] [place] [address] Felice Camacho MD [address] [place] [address] 04/05/2024 9:00 AM EST Clinical Support Obstetrics & Gynecology [address] [place] [address] 05/03/2024 9:00 AM EST Clinical Support Obstetrics & Gynecology [address] [place] [address] 05/31/2024 9:00 AM EST Clinical Support Obstetrics & Gynecology [address] [place] [address] 06/28/2024 9:00 AM EST Clinical Support Obstetrics & Gynecology [address] [place] [address] documented as of this encounter Visit Diagnoses Diagnosis Supervision of other high risk pregnancies, third trimester- Primary Diet controlled gestational diabetes mellitus (GDM) in third trimester Fall, initial encounter Smoker Tobacco use disorder documented in this encounter Care Teams Construction Producer Relationship Specialty Start Date End Date Corina Spence APRN [facility] [place] [id number] PCP - General 09/11/[address] [address] Project Economist Dietitian 11/24/20 01/11/24 documented as of this encounter
--- OUTSIDE RECORDS SUMMARY | 2024-03-13 16:29 | XMS_ITS | Encounter Summary ---
Author Organization Healthcare Address [address] [place] [address] Care Team Providers Care Road Engineer Freight Name Role Phone Corina Spence APRN Primary Care Provider [phone]- [phone] Unavailable [phone] Encounter Details Date Type Department Care Team (Latest Contact Info) Description 12/16/2020 Travel Social History Tobacco Use Types Packs/Day [...] have Coronavirus / COVID-19? No / Unsure 12/16/2020 9:44 AM EDT documented as of this encounter Plan of Treatment Upcoming Encounters Date Type Department Care Team (Late st Contact Info) Description 03/25/2024 8:00 AM EST Office Visit Obstetrics & Gynecology [address] [place] [address] Felice Camacho MD [address] [place] [address] 04/05/2024 9:00 AM EST Clinical Support Obstetrics & Gynecology [address] [place] [address] 05/03/2024 9:00 AM EST Clinical Support Obstetrics & Gynecology [address] [place] [address] 05/31/2024 9:00 AM EST Clinical Support Obstetrics & Gynecology [address] [place] [address] 06/28/2024 9:00 AM EST Clinical Support Obstetrics & Gynecology [address] [place] [address] documented as of this encounter Visit Diagnoses Not on filedocumented in this encounter Care Teams Road Engineer Freight Relationship Specialty Start Date End Date Corina Spence APRN [facility] [place] [address] PCP - General 09/11/[address] [phone] Lawn Service Worker Dietitian 11/24/20 01/11/24 documented as of this encounter
--- OUTSIDE RECORDS SUMMARY | 2024-03-13 16:29 | XMS_ITS | Encounter Summary ---
Author Organization Healthcare Address [address] [place] [address] Care Team Providers Care Public Message Service Supervisor Name Role Phone Corina Spence APRN Primary Care Provider [phone] Unavailable [phone] Encounter Details Date Type Department Care Team (Latest Contact Info) Description 01/18/2021 Travel Social History Tobacco Use Types Packs/Day [...] EST Office Visit Obstetrics & Gynecology [address] [place] [address] Felice Camacho MD [address] [place] [address] 04/05/2024 9:00 AM EST Clinical Support Obstetrics & Gynecology [address] [place] [address] 05/03/2024 9:00 AM EST Clinical Support Obstetrics & Gynecology [address] [address] 05/31/2024 9:00 AM EST Clinical Support Obstetrics & Gynecology [address] [place] [address] 06/28/2024 9:00 AM EST Clinical Support Obstetrics & Gynecology [address] [place] [address] documented as of this encounter Visit Diagnoses Not on filedocumented in this encounter Care Teams Public Message Service Supervisor Relationship Specialty Start Date End Date Corina Spence APRN [facility] [place] [address] PCP - General 09/11/[address] [phone] Nutrition Director Dietitian 11/24/20 01/11/24 documented as of this encounter
--- OUTSIDE RECORDS SUMMARY | 2024-03-13 16:29 | XMS_ITS | Encounter Summary ---
Author Organization [facility] Address [address] [place] [address] Care Team Providers Care Rag Boiler Name Role Phone Corina Spence APRN Primary Care Provider [phone] Unavailable [phone] Reason for Visit * Reason Comments NST/BPP Visit Patient doing well, stats contractions have slowed way down, No new issues Encounter Details Date Type Department Care Team (Late st Contact Info) Description 12/28/2020 10:15 AM EDT Routine Obstetrics & Gynecology [address] [place] [address] Felice Camacho MD [address] [place] [address] Normal , incidental (Primary Dx); [...] Sign Reading Time Taken Comments Blood Pressure 120/79 12/28/2020 10:31 AM EDT Pulse - - Temperature - - Respiratory Rate - - Oxygen Saturation - - Inhaled Oxygen Concentration - - Weight 68.4 kg (150 lb 12.7 oz) 021 10:31 AM EDT Height - - Body Mass Index 23.62 09/30/2020 11:29 AM EDT documented in this encounter Miscellaneous Notes * Significant Event - Felice Camacho MD - 12/28/2020 11:01 AM EDT 12/28/20 1100 Non-Stress Baby A Reason for Non-Stress Test [...] Progress Notes - Felice Camacho MD - 12/28/2020 10:15 AM EDT Subjective Chief Complaint Patient presents with ??? NST/BPP Visit Patient doing well, stats contractions have slowed way down, No new issues Byron Smith is a 25 y.o. at 33w5d with a working estimated date of delivery of 02/10/2021, by Last Menstrual Period who presents for a routine visit. She denies vaginal bleeding, leakage of fluid, decreased movements, or regular contractions. Lost of BH CTXS - on Procardia 10 q 6 hrs. Her is complicated by: GDM The following portions of the chart were reviewed this encounter and updated as appropriate: ALL Objective Physical Exam Weight: 68.4 kg (150 lb 12.7 oz) Expected Total Weight Gain: Could not be calculated Pregravid BMI: Could not be calculated BP: 120/79 Heart Rate: NST Labs Urine dip: neg/neg [...] up in 2x/week for a routine visit & NSTs documented in this encounter Plan of Treatment Upcoming Encounters Date Type Department Care Team (Late st Contact Info) Description 03/25/2024 8:00 AM EST Office Visit Obstetrics & Gynecology [address] [place] [address] Felice Camacho MD [address] [place] [address] 04/05/2024 9:00 AM EST Clinical Support Obstetrics & Gynecology [address] [place] [address] 05/03/2024 9:00 AM EST Clinical Support Obstetrics & Gynecology [address] [place] [address] 05/31/2024 9:00 AM EST Clinical Support Obstetrics & Gynecology [address] [place] [address] 06/28/2024 9:00 AM EST Clinical Support Obstetrics & Gynecology [address] [place] [address] documented as of this encounter Procedures Procedure Name Priority Date/Time Associated Diagnosis Comments POCT URINALYSIS DIPSTICK Routine 12/28/2020 10:32 AM EDT Normal , incidental documented in this encounter Results * Urine dip (12/28/2020 10:32 AM EDT) POCT Glucose Urine Negative Negative mg/dL POCT Bilirubin, Urine Negative Negative POCT Ketones, Urine Negative Negative mg/dL POCT Blood, Urine Negative Negative POCT Protein, Urine Negative Negative mg/dL POCT Urobilinogen, Urine 0.2 0.2, 1.0 E.U./dL POCT Nitrite, Urine Negative Negative POCT Leukocyte Esterase, Urine Negative Negative Urine Urine specimen obtained by clean catch procedure / Unknown 12/28/2020 10:32 AM EDT Felice Camacho MD POINT OF CARE TEST ENTER/EDIT O RDERABLES Final Result documented in this encounter Visit Diagnoses Diagnosis Normal , incidental- Primary Diet controlled gestational diabetes mellitus (GDM) in third trimester documented in this encounter Care Teams Rag Boiler Relationship Specialty Start Date End Date Corina Spence APRN [address] [place] [address] PCP - General 09/11/[address] [facility] [address] [place] [phone] Slate Picker Dietitian 11/24/20 01/11/24 documented as of this encounter
--- OUTSIDE RECORDS SUMMARY | 2024-03-13 16:29 | XMS_ITS | Encounter Summary ---
Author Organization [facility] Address [address] [place] [address] Care Team Providers Care Shotblast Operator Name Role Phone Corina Spence APRN Primary Care Provider [phone] Unavailable [phone] Reason for Referral * Imaging (Routine) - Closed Specialty Diagnoses / Procedures Referred By Maylin davison Referred To Contact Radiology Diagnoses Diet controlled gestational diabetes mellitus (GDM) in third trimester Procedures OB US Follow Up Transabdominal Approach CHG BIOPHYS PROF,W/O NST Felice Camacho MD [address] [place] [address] Phone: tel: fax: [facility] R [facility] ULTRAS[facility] [address] [place] [address] Phone: tel: fax: Referral ID Status Reason Start Date Expiration Date Visits Re quested Visits Authorized [id number] Closed 11/26/2020 05/25/2021 1 1 Reason for Visit * Reason Comments Routine Visit doing well. baby is keeping her up at night time. Encounter Details Date Type Department Care Team ([facility] st Contact Info) Description 11/26/2020 9:45 AM EDT Routine Obstetrics & Gynecology [address] [place] [address] Felice Camacho MD [address] [place] [address] Diet controlled gestational diabetes mellitus (GDM) in third trimester (Primary Dx); Normal , incidental Social History Tobacco Use Types Packs/Day Years [...] Sign Reading Time Taken Comments Blood Pressure 124/76 11/26/2020 9:48 AM EDT Pulse - - Temperature - - Respiratory Rate - - Oxygen Saturation - - Inhaled Oxygen Concentration - - Weight 66.7 kg (147 lb 0.8 oz) 11/26/2020 9:48 A M EDT Height - - Body Mass Index 23.03 09/30/2020 11:29 AM EDT documented in this encounter Miscellaneous Notes * Progress Notes - Felice Camacho MD - 11/26/2020 9:45 AM EDT Subjective Chief Complaint Patient presents with ??? Routine Visit doing well. baby is keeping her up at night time. Byron Smith is a 25 y.o. at 29w1d with a working estimated date of delivery of 02/10/2021, by Last Menstrual Period who presents for a routine visit. She denies vaginal bleeding, leakage of fluid, decreased movements, or contractions. Her is complicated by: GDM A? Unicornate [place] The following portions of the chart were reviewed this encounter and updated as appropriate: ALL Objective Physical Exam Weight: 66.7 kg (147 lb 0.8 oz) Expected Total Weight Gain: Could not be calculated Pregravid BMI: Could not be calculated BP: 124/76 Heart Rate: 140 Fundal Height (cm): 32 cm Presentation: Vertex Labs Urine dip: neg/neg HGB (g/dL) Date/Time [...] Hour (mg/dL) Date/Time Value 11/09/2020 1114 138 Assessment/Plan Diagnoses and all orders for this visit: Diet controlled gestational diabetes mellitus (GDM) in third trimester - Urine dip Normal , incidental - Urine dip - Tdap vaccine greater than or equal to 7yo IM Continue vitamin. Labs reviewed. GBS at 36 weeks Expected mode of delivery Follow up in 3 weeks for a routine visit & Growth US - S>D & GDM documented in this encounter Plan of Treatment Upcoming Encounters Date Type Department Care Team (Late st Contact Info) Description 03/25/2024 8:00 AM EST Office Visit Obstetrics & Gynecology [address] [place] [address] Felice Camacho MD [address] [place] [address] 04/05/2024 9:00 AM EST Clinical Support Obstetrics & Gynecology [address] [place] [address] 05/03/2024 9:00 AM EST Clinical Support Obstetrics & Gynecology [address] [place] [address] [address] 05/31/2024 9:00 AM EST Clinical Support Obstetrics & Gynecology [address] [place] [address] [address] 06/28/2024 9:00 AM EST Clinical Support Obstetrics & Gynecology [address] [place] [address] [address] documented as of this encounter Procedures Procedure Name Priority Date/Time Associated Diagnosis Comments POCT URINALYSIS DIPSTICK Routine 11/26/2020 9:57 AM EDT Diet controlled gestational diabetes mellitus (GDM) in third trimester Normal , incidental documented in this encounter Results * OB US Follow Up Transabdominal Approach (12/16/2020 10:20 AM EDT) Anatomical Region Laterality Modality Body Ultrasound 12/16/2020 9:55 AM EDT Impressions 12/17/2020 5:26 AM EDT The OB Ultrasound you requested has been resulted. Please navigate to the Imaging tab in [employer] for review. This message has been generated by the interface. Narrative Procedure Note Sahil Bartlett MD - 12/17/2020 IMPRESSION: The OB Ultrasound you requested has been resulted. Please navigate to theImaging tab in [employer] for review. This message has been generated by theinterface. us Felice Camacho MD IMG OB US PROCEDURES Final Resu lt * (ABNORMAL) Urine dip (11/26/2020 9:57 AM EDT) POCT Glucose Urine Negative Negative mg/dL POCT Bilirubin, Urine Negative Negative POCT Ketones, Urine Trace(A) Negative mg/dL POCT Blood, Urine Negative Negative POCT Protein, Urine Negative Negative mg/dL POCT Urobilinogen, Urine 0.2 0.2, 1.0 E.U./dL POCT Nitrite, Urine Negative Negative POCT Leukocyte Esterase, Urine Negative Negative Urine Urine specimen obtained by clean catch procedure / Unknown 11/26/2020 9:57 AM EDT Felice Camacho MD POINT OF CARE TEST ENTER/EDIT O RDERABLES Final Result documented in this encounter Visit Diagnoses Diagnosis Diet controlled gestational diabetes mellitus (GDM) in third trimester- Primary Normal , incidental Diet controlled gestational diabetes mellitus (GDM) in third trimester documented in this encounter Care Teams Shotblast Operator Relationship Specialty Start Date End Date Corina Spence APRN [address] [place], [place] [id number] PCP - General 09/11/[address] [address] Tool And Gauge Inspector Dietitian 11/24/20 01/11/24 documented as of this encounter
--- OUTSIDE RECORDS SUMMARY | 2024-03-13 16:29 | XMS_ITS | Encounter Summary ---
Author Organization Healthcare Address [address] [place] [address] Care Team Providers Care Gas Generator Operator Name Role Phone Corina Spence APRN Primary Care Provider [phone] Unavailable Encounter Details Date Type Department Care Team (Latest Contact Info) Description 12/07/2020 Travel Social History Tobacco Use Types Packs/Day [...] EST Office Visit Obstetrics & Gynecology [address] [place] [address] Felice Camacho MD [address] [place] [address] 04/05/2024 9:00 AM EST Clinical Support Obstetrics & Gynecology [address] [place] [address] 05/03/2024 9:00 AM EST Clinical Support Obstetrics & Gynecology [address] [place] [address] 05/31/2024 9:00 AM EST Clinical Support Obstetrics & Gynecology [address] [place] [address] 06/28/2024 9:00 AM EST Clinical Support Obstetrics & Gynecology [address] [place] [address] documented as of this encounter Visit Diagnoses Not on filedocumented in this encounter Care Teams Gas Generator Operator Relationship Specialty Start Date End Date Corina Spence APRN [address] [place] [id number] PCP - General 09/11/[address] [address] Program Clinician Dietitian 11/24/20 01/11/24 documented as of this encounter
--- OUTSIDE RECORDS SUMMARY | 2024-03-13 16:29 | XMS_ITS | Encounter Summary ---
Author Organization Healthcare Address [address] [place] [address] Care Team Providers Care Cocoa Bean Roaster Name Role Phone Corina Spence APRN Primary Care Provider [phone]- [phone] Unavailable [phone] Reason for Visit * Reason Comments Follow-up Encounter Details Date Type Department Care Team (Late st Contact Info) Description 02/18/2021 11:30 AM EDT Visit Obstetrics & Gynecology [address] [place] [address] Claritza Balbuena MD [address] [place] [address] Encounter for gynecological examination without abnormal finding (Primary Dx); Routine follow-up Social History Tobacco Use Types Packs/Day Years Used Date Smoking Tobacco: Never Smokeless Tobacco: Never Alcohol Use Standard Drinks/Week Comments Never 0 (1 standard drink = 0.6 oz pur e alcohol) [place] Depression Scale Answer Date Recorded [place] Depression Scale Total 0 02/18/2021 The thought [...] Sign Reading Time Taken Comments Blood Pressure 117/79 02/18/2021 12:02 PM EDT Pulse 106 02/18/2021 12:02 PM EDT Temperature - - Respiratory Rate - - Oxygen Saturation - - Inhaled Oxygen Concentration - - Weight 62.1 kg (137 lb) 02/18/2021 12:02 PM EDT Height 170.2 cm (5' 7 ) 02/18/2021 12:02 PM EDT Body Mass Index 21.46 02/18/2021 12:02 PM EDT documented in this encounter Miscellaneous Notes * Assessment & Plan Note - Claritza Balbuena MD - 02/18/2021 12:38 PM EDT Associated Problem(s): Routine follow-up - doing well - nexplanon placed today - pap today - RTC as needed * Progress Notes - Ashlyn Link - 02/18/2021 11:30 AM EDT 117/79 Cosigned by Claritza Balbuena MD at 02/18/2021 12:33 PM EDT * Progress Notes - Claritza Balbuena MD - 02/18/2021 11:30 AM EDTAssociated Order(s): Insertion of Contraceptive Capsule Post-Procedure Diagnose(s): Routine follow-up Note Yogesh Matthews is a 25 y.o. here for a visit. She delivered a viable male , here for 4 week visit. Lochia: minimal Feeding method: She is bottle feeding. Contraception: Nexplanon Delivery information: Route of delivery: Vaginal delivery Gestational Age: 37w0d Perineal laceration none Complications paritial placenta abruption Objective Depression screen: [place] Depression Scale Total: 0 Exam: Visit Vitals BP 117/79 Pulse 106 Pregravid weight: Pregravid weight not on file Weight: 62.1 kg (137 lb) Gen: NAD, well-appearing CV: RRR, no edema Resp: non-labored respirations Abd: soft, nontender : normal external genitalia, normal cervix Recent labs: Lab Results Component Value Date HGB 11.6 10/29/2020 HCT 35.1 10/29/2020 Patient ID: Byron Smith is a 25 y.o. female. Insertion of Contraceptive Capsule Performed by: Clartiza Balbuena MD Authorized by: Claritza Balbuena MD Consent: Consent obtained: Verbal and written Consent given by: Patient Procedural risks discussed: Bleeding, infection and failure rate Patient questions answered: yes Patient agrees, verbalizes understanding, and wants to proceed: yes Indication: Indication: Insertion of non-biodegradable drug delivery implant Pre-procedure: Pre-procedure timeout performed: yes Prepped with: povidone-iodine Local anesthetic: Lidocaine with epinephrine The site was cleaned and prepped in a sterile fashion: yes Procedure: Procedure: Insertion Preloaded contraceptive capsule trocar was placed subdermally: yes Visualization of implant was obtained: yes Contraceptive capsule was inserted and trocar removed: yes Visualization of notch in stylet and palpation of device: yes Palpation confirms placement by provider and patient: yes Site was closed with steri-strips and pressure bandage applied: yes Comments: [facility]: [id number] Lot number: [id number] Assessment Problem List Items Addressed This Visit Other Routine follow-up - doing well - nexplanon placed today - pap today - RTC as needed Other Visit Diagnoses Encounter for gynecological examination without abnormal finding - Primary Relevant Orders Pap Smear documented in this encounter Plan of Treatment Upcoming Encounters Date Type Department Care Team (Late st Contact Info) Description 03/25/2024 8:00 AM EST Office Visit Obstetrics & Gynecology [address] [place] [address] Felice Camacho MD [address] [place] [address] 04/05/2024 9:00 AM EST Clinical Support Obstetrics & Gynecology [address] [place] [address] 05/03/2024 9:00 AM EST Clinical Support Obstetrics & Gynecology [address] [place] [address] 05/31/2024 9:00 AM EST Clinical Support Obstetrics & Gynecology [address] [place] [address] 06/28/2024 9:00 AM EST Clinical Support Obstetrics & Gynecology [address] [place] [address] documented as of this encounter Procedures Procedure Name Priority Date/Time Associated Diagnosis Comments PAP TEST - CYTOLOGY Routine 02/18/2021 1 2:18 PM EDT Encounter for gynecological examination without abnormal finding INSERTION OF CONTRACEPTIVE CAPSULE Routine 02/18/2021 11:30 AM EDT Routine follow-up documented in this encounter Results * Pap Smear (02/18/2021 12:18 PM EDT) Case Report Cytology ?Case: [id number] ? Authorizing Provider: ??Claritza Balbuena MD ?? Collected: ? 02/18/2021 1218 ? Ordering Location: ? [facility] Received: ?02/19/2021 0811 ? First Screen: ?Shabnam Jiménez, CT ? Specimen: ?ThinPrep Pap Test, Liquid-Based Cervical/Vaginal, CERVICAL/VAGINAL ? 02/23/2021 1:34 PM EDT [facility] Interpretation NEGATIVE FOR INTRAEPITHELIAL LESION OR MALIGNANCY 02/23/2021 1:34 PM EDT [facility] Specimen Adequacy Satisfactory for evaluation; endocervical/johnson sformation zone component present. Slide scanned and imaged by ThinPrep Imaging System with manual review of all selected fournier. 02/23/2021 1:34 PM EDT [facility] Cervical cytology is a screening test [...] results is suggested (please call Microbiology at [phone] for results). 02/23/2021 1:34 PM EDT [facility] Menstrual Status Post- 1:34 PM EDT [facility] Contraceptive History Not Applicable 02/23/2021 1:34 PM EDT [facility] Last Menstrual Period 05/06/2020 02/23/2021 1:34 PM EDT [facility] Screening Type Routine Screen 2020 1:34 PM EDT [facility] High Risk? No 02/23/2021 1:34 PM EDT [facility] HPV Testing Requested? Request HPV testing if ASCUS or LSIL. 02/23/2021 1:34 PM EDT [facility] Previous Cancer History No 02/23/2021 1:34 PM EDT [facility] Swab Vaginal and cervical cytologic material / Unknown Non-blood Collection / Unknown 02/18/2021 12:18 PM EDT 02/19/2021 8:11 AM EDT us Claritza Balbuena MD LAB CYTOLOGY ORDERABLES Final Result [facility] [address] [place] [address] * Insertion of Contraceptive Capsule (02/18/2021 11:30 AM EDT) Narrative Claritza Balbuean MD - 02/18/2021 11:30 AM EDT Claritza Balbuena MD ? 02/18/2021 12:39 PM Insertion of Contraceptive Capsule Performed by: Claritza Balbuena MD Authorized by: Claritza Balbuena MD Consent: ??Consent obtained: ??Verbal and written ??Consent given by: ??Patient ??Procedural risks discussed: ??Bleeding, infection and failure rate ??Patient questions answered: yes ?Patient agrees, verbalizes understanding, and wants to proceed: yes ?? Indication: ??Indication: Insertion of non-biodegradable drug delivery implant ?? Pre-procedure: ??Pre-procedure timeout performed: yes ?Prepped with: povidone-iodine ?Local anesthetic: ??Lidocaine with epinephrine ??The site was cleaned and prepped in a sterile fashion: yes ?? Procedure: ??Procedure: ??Insertion ??Preloaded contraceptive capsule trocar was placed subdermally: yes ?Visualization of implant was obtained: yes ?Contraceptive capsule was inserted and trocar removed: yes ?Visualization of notch in stylet and palpation of device: yes ?Palpation confirms placement by provider and patient: yes ?Site was closed with steri-strips and pressure bandage applied: yes ?? Comments: ?? [facility]: [id number] ??Lot number: [id number] us Claritza Balbuena MD IN CLINIC/BEDSIDE ORDERA BLES Final Result documented in this encounter Visit Diagnoses Diagnosis Encounter for gynecological examination without abnormal finding- Primary Routine follow-up documented in this encounter Care Teams Cocoa Bean Roaster Relationship Specialty Start Date End Date Corina Spence APRN [address] [place] [address] PCP - General 09/11/[address] [facility] [address] [place] [address] Director Of Special Events Dietitian 11/24/20 01/11/24 documented as of this encounter
--- OUTSIDE RECORDS SUMMARY | 2024-03-13 16:29 | XMS_ITS | Encounter Summary ---
Author Organization Healthcare Address [address] [place] [address] Care Team Providers Care Telecom Billing Analyst Name Role Phone Corina Spence APRN Primary Care Provider [phone]- [phone] Unavailable Reason for Visit * Reason Comments NST/BPP Visit patient c/o contrdinh ting every 10 min since last night Encounter Details Date Type Department Care Team (Late st Contact Info) Description 12/25/2020 1:45 PM EDT Routine Obstetrics & Gynecology [address] [place] [address] Felice Camacho MD [address] [place] [address] Normal , incidental (Primary Dx); Threatened premature labor in third trimester; Diet controlled gestational diabetes mellitus (GDM) in [...] Sign Reading Time Taken Comments Blood Pressure 136/84 12/25/2020 2:24 PM EDT Pulse - - Temperature - - Respiratory Rate - - Oxygen Saturation - - Inhaled Oxygen Concentration - - Weight 68.1 kg (150 lb 2.1 oz) 12/25/2020 2:24 P M EDT Height - - Body Mass Index 23.51 09/30/2020 11:29 AM EDT documented in this encounter Miscellaneous Notes * Significant Event - Felice Camacho MD - 12/25/2020 4:12 PM EDT 12/25/20 1611 Non-Stress Baby A Reason for Non-Stress Test Diabetes;Other (Comment) (Threatened Labor) Variability in Waveform for Baby A 6-25 BPM Decelerations in Baby A None Accelerations in Baby A Yes Acoustic Stimulator for Baby A No Baseline Heart Rate for Baby A 130 BPM Uterine Irritability for Baby A Yes Contractions in Baby A Irregular Minutes Between Contractions in Non-Stress Test 5 min Interpretation of Non-Stress Test Interpretation of Non-Stress Test Reactive $ NST Charge 1 * Progress Notes - Lesa Henley MA - 12/25/2020 1:45 PM EDT A * Progress Notes - Felice Camacho MD - 12/25/2020 1:45 PM EDT Subjective Chief Complaint Patient presents with ??? NST/BPP Visit patient c/o contraacting every 10 min since last night Byron Smith is a 25 y.o. at 33w2d with a working estimated date of delivery of 02/10/2021, by Last Menstrual Period who presents for a routine visit. She denies vaginal bleeding, leakage of fluid, or decreased movements. She is having increasing contractions - see NST today - q 5-8 minutes - I rx'ed Procardia 10 mg Po Q6 hr for her but insurance has yet to approve tx. . Her is complicated by: GDM A1 H/O PTB The following portions of the chart were reviewed this encounter and updated as appropriate: ALL Objective Physical Exam Weight: 68.1 kg (150 lb 2.1 oz) Expected Total Weight Gain: Could not be calculated Pregravid BMI: Could not be calculated BP: 136/84 Heart Rate: NST Presentation: Vertex Dilation: Closed Effacement (%): 50 Station: -2 Labs Urine dip: neg/neg HGB (g/dL) Date/Time [...] Value 11/09/2020 1114 138 NST - Reactive with CTXS q 5-8 mins Assessment/Plan Diagnoses and all orders for this visit: Normal , incidental - Urine dip Threatened premature labor in third trimester Diet controlled gestational diabetes mellitus (GDM) in third trimester Continue vitamin. Labs reviewed. GBS at 36 weeks Expected mode of delivery Follow up Monday Needs PROCARDIA ALVARO HYDRATE REST documented in this encounter Plan of Treatment Upcoming Encounters Date Type Department Care Team (Late st Contact Info) Description 03/25/2024 8:00 AM EST Office Visit Obstetrics & Gynecology [address] [place] [address] Felice Camacho MD [address] [place] [address] 04/05/2024 9:00 AM EST Clinical Support Obstetrics & Gynecology [address] [place] [address] 05/03/2024 9:00 AM EST Clinical Support Obstetrics & Gynecology [place] [address] 05/31/2024 9:00 AM EST Clinical Support Obstetrics & [place] [address] 06/28/2024 9:00 AM EST Clinical Support Obstetrics & Gynecology [place] [address] documented as of this encounter Procedures Procedure Name Priority Date/Time Associated Diagnosis Comments POCT URINALYSIS DIPSTICK Routine 12/25/2020 2:26 PM EDT Normal , incidental documented in this encounter Results * Urine dip (12/25/2020 2:26 PM EDT) POCT Glucose Urine Negative Negative mg/dL POCT Bilirubin, Urine Negative Negative POCT Ketones, Urine Negative Negative mg/dL POCT Blood, Urine Negative Negative POCT Protein, Urine Negative Negative mg/dL POCT Urobilinogen, Urine 0.2 0.2, 1.0 E.U./dL POCT Nitrite, Urine Negative Negative POCT Leukocyte Esterase, Urine Negative Negative Urine Urine specimen obtained by clean catch procedure / Unknown 12/25/2020 2:26 PM EDT Felice Camacho MD POINT OF CARE TEST ENTER/EDIT O RDERABLES Final Result documented in this encounter Visit Diagnoses Diagnosis Normal , incidental- Primary Threatened premature labor in third trimester Diet controlled gestational diabetes mellitus (GDM) in third trimester documented in this encounter Care Teams Telecom Billing Analyst Relationship Specialty Start Date End Date Corina Spence APRN [address] [place] [address] PCP - General 09/11/[address] [address] Brim Pouncing Machine Operator Dietitian 11/24/20 01/11/24 documented as of this encounter
--- OUTSIDE RECORDS SUMMARY | 2024-03-13 16:29 | XMS_ITS | Encounter Summary ---
Author Organization [facility] Address [address] [place] [address] Care Team Providers Care Auto Bench Mechanic Name Role Phone Corina Spence APRN Primary Care Provider [phone]- [phone] Unavailable [phone] Reason for Referral * Imaging (Routine) - Closed Specialty Diagnoses / Procedures Referred By Contac t Referred To Contact Diagnoses Diet controlled gestational diabetes mellitus (GDM) in third trimester Procedures OB US Follow Up Transabdominal Approach Felice Camacho MD [address] [place] [address] Phone: tel: fax: Referral ID Status Reason Start Date Expiration Date Visits Re quested Visits Authorized [id number] Closed 01/08/2021 07/07/2021 1 1 Reason for Visit * Imaging (Routine) - Closed Specialty Diagnoses / Procedures Referred By Contac t Referred To Contact Diagnoses Diet controlled gestational diabetes mellitus (GDM) in third trimester Procedures OB US Follow Up Transabdominal Approach Felice Camacho MD [address] [place] [address] Phone: tel: fax: Referral ID Status Reason Start Date Expiration Date Visits Re quested Visits Authorized [id number] Closed 01/08/2021 07/07/2021 1 1 Encounter Details Date Type Department Care Team (Latest Contact Info) Description 01/14/2021 8:01 AM EDT - 01/14/2021 11:59 PM EDT Hospital Encounter [facility] [address] [place] [address] Diet controlled gestational diabetes mellitus (GDM) in third trimester Discharge Disposition: Home or Self Care Social [...] AM EDT documented as of this encounter Medications at Time of Discharge QUEtiapine (SEROquel) 50 MG tablet Take 1 tablet (50 mg) by mouth every night. 10/27/2020 famotidine (Pepcid) 20 MG tablet Take 2 tablets (40 mg total) by mouth 2 (two) times a day. 120 tablet 3 12/07/2020 2 Blood Glucose Monitoring Suppl (ONE TOUCH ULTRA 2) w/Device kit device kit See administration instructions. 11/11/2020 4 Lancets (OneTouch Delica Plus [id number]) misc 4 (four) times a day. for testing 11/11/2020 4 NIFEdipine (Procardia) 10 MG capsule Take 1 capsule (10 mg total) by mouth every 6 (six) hours. 120 capsule 2 12/16/2020 4 OneTouch Ultra test strip TEST FOUR TIMES DAILY FASTING 11/11/2020 4 venlafaxine XR (Effoxor-XR) 37.5 MG 24 hr capsule TAKE 1 CAPSULE BY MOUTH EVERY DAY WITH FOOD 10/27/2020 4 documented as of this encounter Plan of Treatment Upcoming Encounters Date Type Department Care Team (Late Contact Info) Description 03/25/2024 8:00 AM EST Office Visit Obstetrics & Gynecology [address] [place] [address] Felice Camacho MD [address] [place] [address] 04/05/2024 9:00 AM EST Clinical Support Obstetrics & Gynecology [address] [place] [address] 05/03/2024 9:00 AM EST Clinical Support Obstetrics [place] [address] [address] 05/31/2024 9:00 AM EST Clinical Support Obstetrics & [place] [address] [address] 06/28/2024 9:00 AM EST Clinical Support Obstetrics & [place] [address] [address] documented as of this encounter Procedures Procedure Name Priority Date/Time Associated Diagnosis Comments OB US FOLLOW UP TRANSABDOMINAL APPROACH Routine 01/14/2021 8:46 AM EDT Diet controlled gestational diabetes mellitus (GDM) in third trimester documented in this encounter Results * OB US Follow Up Transabdominal Approach (01/14/2021 8:46 AM EDT) Anatomical Region Laterality Modality Body Ultrasound 01/14/2021 8:20 AM EDT Impressions 01/14/2021 12:31 PM EDT The OB Ultrasound you requested has been resulted. Please navigate to the Imaging tab in [employer] for review. This message has been generated by the interface. Narrative Procedure Note Stacie Escalante MD - 01/14/2021 IMPRESSION: The OB Ultrasound you requested has been resulted. Please navigate to theImaging tab in [employer] for review. This message has been generated by theinterface. us Felice Camacho MD IMG OB US PROCEDURES Final Resu lt documented in this encounter Visit Diagnoses Diagnosis Diet controlled gestational diabetes mellitus (GDM) in third trimester documented in this encounter Care Teams Auto Bench Mechanic Relationship Specialty Start Date End Date Corina Spence APRN [address] [place] [address] PCP - General 09/11/[address] [address] Slackline Operator Dietitian 11/24/20 01/11/24 documented as of this encounter
--- OUTSIDE RECORDS SUMMARY | 2024-03-13 16:29 | XMS_ITS | Encounter Summary ---
Author Organization [facility] Address [address] [place] [address] Care Team Providers Care Litigation Attorney Associate Name Role Phone Corina Spence APRN Primary Care Provider [phone] Unavailable [phone] Reason for Referral * Imaging (Routine) - Closed Specialty Diagnoses / Procedures Referred By Maylin t Referred To Contact Radiology Diagnoses Diet controlled gestational diabetes mellitus (GDM) in third trimester Procedures OB US Follow Up Transabdominal Approach CHG BIOPHYS PROF,W/O NST Felice Camacho MD [address] [place] [address] Phone: tel: fax: [facility] [address] [place] [address] Phone: tel: fax: Referral ID Status Reason Start Date Expiration Date Visits Re quested Visits Authorized [id number] Closed 11/26/2020 05/25/2021 1 1 Reason for Visit * Imaging (Routine) - Closed Specialty Diagnoses / Procedures Referred By Maylin t Referred To Contact Radiology Diagnoses Diet controlled gestational diabetes mellitus (GDM) in third trimester Procedures OB US Follow Up Transabdominal Approach CHG BIOPHYS PROF,W/O NST Felice Camacho MD [address] [place] [address] Phone: tel: fax: [facility] [address] [place] [address] Phone: tel: fax: Referral ID Status Reason Start Date Expiration Date Visits Re quested Visits Authorized [id number] Closed 11/26/2020 05/25/2021 1 1 Encounter Details Date Type Department Care Team (Latest Contact Info) Description 12/16/2020 9:56 AM EDT - 12/16/2020 11:59 PM EDT Hospital Encounter [facility] [address] [place] [address] Diet controlled gestational diabetes mellitus (GDM) in [...] this encounter Medications at Time of Discharge nicotine (Nicoderm CQ) 14 MG/24HR patch Place 1 patch on the skin 1 (one) time each day at the same time. 30 patch 3 12/07/2020 nicotine (Nicotrol) 10 MG inhaler Inhale 1 puff if needed for smoking cessation. 42 each 12/07/2020 QUEtiapine (SEROquel) 50 MG tablet Take 1 tablet (50 mg) by mouth every night. 10/27/2020 famotidine (Pepcid) 20 MG tablet Take 2 tablets (40 mg total) by mouth 2 (two) times a day. 120 tablet 3 12/07/2020 08/09/202 2 Blood Glucose Monitoring Suppl (ONE TOUCH ULTRA 2) w/Device kit device kit See administration instructions. 11/11/2020 4 Lancets (OneTouch Delica Plus [id number]) misc 4 (four) times a day. for [...] EST Office Visit Obstetrics & Gynecology [address] [place] [address] Felice Camacho MD [address] [place] [address] 04/05/2024 9:00 AM EST Clinical Support Obstetrics & Gynecology [address] [place] [address] 05/03/2024 9:00 AM EST Clinical Support Obstetrics & Gynecology [address] [place] [address] [place] [address] 05/31/2024 9:00 AM EST Clinical Support Obstetrics & Gynecology [facility] [place] [address] 06/28/2024 9:00 AM EST Clinical Support Obstetrics & Gynecology [facility] [place] [address] documented as of this encounter Procedures Procedure Name Priority Date/Time Associated Diagnosis Comments OB US FOLLOW UP TRANSABDOMINAL APPROACH Routine 12/16/2020 10:20 AM EDT Diet controlled gestational diabetes mellitus (GDM) in third trimester documented in this encounter Results * OB US Follow Up Transabdominal Approach (12/16/2020 10:20 AM EDT) Anatomical Region Laterality Modality Body Ultrasound 12/16/2020 9:55 AM EDT Impressions 12/17/2020 5:26 AM EDT The OB Ultrasound you requested has been resulted. Please navigate to the Imaging tab in [employer] for review. This message has been generated by the interface. Narrative Procedure Note Sahil Bartlett MD - 12/17/2020 IMPRESSION: The OB Ultrasound you requested has been resulted. Please navigate to theImaging tab in [employer] for review. This message has been generated by theinterface. us Felice Camacho MD IMG OB US PROCEDURES Final Resu lt documented in this encounter Visit Diagnoses Diagnosis Diet controlled gestational diabetes mellitus (GDM) in third trimester documented in this encounter Care Teams Litigation Attorney Associate Relationship Specialty Start Date End Date Corina Spence APRN [facility] [place] [address] PCP - General 09/11/[address] [address] Splunk Architect Dietitian 11/24/20 01/11/24 documented as of this encounter
--- OUTSIDE RECORDS SUMMARY | 2024-03-13 16:29 | XMS_ITS | Encounter Summary ---
Author Organization Healthcare Address [address] [place] [address] Care Team Providers Care Screen Printing Equipment Setter Name Role Phone Corina Spence APRN Primary Care Provider [phone] Encounter Details Date Type Department Care Team (Late st Contact Info) Description 11/09/2020 Abstract Obstetrics & Gynecology [address] [place] [address] Felice Camacho MD [address] [place] [address] Social History Tobacco Use Types [...] EST Office Visit Obstetrics & Gynecology [address] [place] [address] Felice Camacho MD [address] [place] [address] 04/05/2024 9:00 AM EST Clinical Support Obstetrics & Gynecology [address] [place] [address] 05/03/2024 9:00 AM EST Clinical Support Obstetrics & Gynecology [address] [place] [address] 05/31/2024 9:00 AM EST Clinical Support Obstetrics & Gynecology [address] [place] [address] 06/28/2024 9:00 AM EST Clinical Support Obstetrics & Gynecology [address] [place] [address] documented as of this encounter Visit Diagnoses Not on filedocumented in this encounter Care Teams Screen Printing Equipment Setter Relationship Specialty Start Date End Date Corina Spence, [facility] [place] [id number] PCP - General 09/11/20 documented as of this encounter
--- OUTSIDE RECORDS SUMMARY | 2024-03-13 16:29 | XMS_ITS | Encounter Summary ---
Author Organization [facility] Address [address] [place] [address] Care Team Providers Care Electromatic Typist Name Role Phone Corina Spence APRN Primary Care Provider +1- [phone] Unavailable [phone] Reason for Visit * Reason Comments NST/BPP Visit Encounter Details Date Type Department Care Team (Late st Contact Info) Description 01/05/2021 10:00 AM EDT Routine Obstetrics & Gynecology [address] [place] [address] Lisa Cole APRN, CN [address] [place] [address] Diet controlled gestational diabetes mellitus (GDM) in third trimester (Primary Dx); Supervision of other high risk pregnancies, third trimester; Smoker; High risk due to history of labor in third trimester Social History Tobacco Use [...] have Coronavirus / COVID-19? No / Unsure 01/05/2021 10:08 AM EDT documented as of this encounter Last Filed Vital Signs Vital Sign Reading Time Taken Comments Blood Pressure 109/77 01/05/2021 10:20 AM EDT Pulse - - Temperature - - Respiratory Rate - - Oxygen Saturation - - Inhaled Oxygen Concentration - - Weight 69 kg (152 lb 1.9 oz) 01/05/2021 10:20 AM EDT Height - - Body Mass Index 23.82 09/30/2020 11:29 AM EDT documented in this encounter Miscellaneous Notes * Significant Event - Lisa Cole - 01/05/2021 2:29 PM EDT 01/05/21 1428 Non-Stress Baby A Reason for Non-Stress Test [...] NST Charge 1 * Progress Notes - Lisa Cole - 01/05/2021 10:00 AM EDT Subjective Chief Complaint Patient presents with ??? NST/BPP Visit Byron Smith is a 25 y.o. 34w6d 02/10/2021, by Last Menstrual Period who presentsfor a routine visit. She denies vaginal bleeding, leakage of fluid, decreased movements, or contractions. Her is complicated by: A1GDM, smoker, history labor and delivery NONSTRESS TEST RR Assessment/Plan Diagnoses and all orders for this visit: Diet controlled gestational diabetes mellitus (GDM) in third trimester Supervision of other high risk pregnancies, third trimester Smoker High risk due to history of labor in third trimester Continue vitamin. Follow up in 2 d for a routine visit/NST. documented in this encounter Plan of Treatment Upcoming Encounters Date Type Department Care Team (Late st Contact Info) Description 03/25/2024 8:00 AM EST Office Visit Obstetrics & Gynecology [address] [place] [address] Felice Camacho MD [address] [place] [address] 04/05/2024 9:00 AM EST Clinical Support Obstetrics & Gynecology [address] [place] [address] 05/03/2024 9:00 AM EST Clinical Support Obstetrics & Gynecology [address] [place] [address] 05/31/2024 9:00 AM EST Clinical Support Obstetrics & Gynecology [address] [place] [address] 06/28/2024 9:00 AM EST Clinical Support Obstetrics & Gynecology [address] [place] [address] documented as of this encounter Visit Diagnoses Diagnosis Diet controlled gestational diabetes mellitus (GDM) in third trimester- Primary Supervision of other high risk pregnancies, third trimester Smoker Tobacco use disorder High risk due to history of labor in third trimester documented in this encounter Care Teams Electromatic Typist Relationship Specialty Start Date End Date Corina Spence APRN [address] [place] [address] PCP - General 09/11/[address] [address] Rivet Sorter Dietitian 11/24/20 01/11/24 documented as of this encounter
--- OUTSIDE RECORDS SUMMARY | 2024-03-13 16:29 | XMS_ITS | Encounter Summary ---
Author Organization [facility] Address [address] [place] [address] Care Team Providers Care Vocational Teacher Name Role Phone Corina Spence APRN Primary Care Provider [phone]- [phone] Unavailable [phone] Reason for Visit * Reason Comments NST/BPP Visit Encounter Details Date Type Department Care Team (Late st Contact Info) Description 12/31/2020 10:00 AM EDT Routine Obstetrics & Gynecology [address] [place] [address] Felice Camacho MD [address] [place] [address] Normal , incidental (Primary Dx); Threatened premature labor in third trimester; Supervision of other high risk pregnancies, third trimester; Diet controlled gestational diabetes mellitus [...] have Coronavirus / COVID-19? No / Unsure 12/31/2020 9:49 AM EDT documented as of this encounter Last Filed Vital Signs Vital Sign Reading Time Taken Comments Blood Pressure 120/78 12/31/2020 10:00 AM EDT Pulse - - Temperature - - Respiratory Rate - - Oxygen Saturation - - Inhaled Oxygen Concentration - - Weight 69.4 kg (152 lb 14.6 oz) 021 10:00 AM EDT Height - - Body Mass Index 23.95 09/30/2020 11:29 AM EDT documented in this encounter Miscellaneous Notes * Significant Event - Felice Camacho MD - 12/31/2020 10:44 AM EDT 12/31/20 1044 Non-Stress Baby A Reason for Non-Stress Test [...] Progress Notes - Felice Camacho MD - 12/31/2020 10:00 AM EDT Subjective Chief Complaint Patient presents with ??? NST/BPP Visit Byron Smith is a 25 y.o. at 34w1d with a working estimated date of delivery of 02/10/2021, by Last Menstrual Period who presents for a routine visit. She denies vaginal bleeding, leakage of fluid, decreased movements, or regular contractions. Taking Procardia 10 q 6 hrs - feels better. Her is complicated by: Threatened PTL GDM A1 The following portions of the chart were reviewed this encounter and updated as appropriate: ALL Objective Physical Exam Weight: 69.4 kg (152 lb 14.6 oz) Expected Total Weight Gain: Could not be calculated Pregravid BMI: Could not be calculated BP: 120/78 Heart Rate: NST Labs Urine dip: NA [...] dip Threatened premature labor in third trimester Supervision of other high risk pregnancies, third trimester Diet controlled gestational diabetes mellitus (GDM) in third trimester Continue vitamin. Labs reviewed. GBS at 36 weeks Expected mode of delivery Follow up in 2x/week for a routine visit w/ NSTs. Continue Procardia documented in this encounter Plan of Treatment Upcoming Encounters Date Type Department Care Team (Late st Contact Info) Description 03/25/2024 8:00 AM EST Office Visit Obstetrics & Gynecology [address] [place] [address] Felice Camacho MD [address] [place] [address] 04/05/2024 9:00 AM EST Clinical Support Obstetrics & Gynecology [address] [place] [address] 05/03/2024 9:00 AM EST Clinical Support Obstetrics & Gynecology [address] [place] [address] 05/31/2024 9:00 AM EST Clinical Support Obstetrics & Gynecology [address] [place] [address] 06/28/2024 9:00 AM EST Clinical Support Obstetrics & Gynecology [address] [place] [address] documented as of this encounter Procedures Procedure Name Priority Date/Time Associated Diagnosis Comments POCT URINALYSIS DIPSTICK Routine 12/31/2020 10:24 AM EDT Normal , incidental documented in this encounter Results * Urine dip (12/31/2020 10:24 AM EDT) POCT Glucose Urine Negative Negative mg/dL POCT Bilirubin, Urine Negative Negative POCT Ketones, Urine Negative Negative mg/dL POCT Blood, Urine Negative Negative POCT Protein, Urine Negative Negative mg/dL POCT Urobilinogen, Urine 0.2 0.2, 1.0 E.U./dL POCT Nitrite, Urine Negative Negative POCT Leukocyte Esterase, Urine Negative Negative Urine Urine specimen obtained by clean catch procedure / Unknown 12/31/2020 10:24 AM EDT Felice Camacho MD POINT OF CARE TEST ENTER/EDIT O RDERABLES Final Result documented in this encounter Visit Diagnoses Diagnosis Normal , incidental- Primary Threatened premature labor in third trimester Supervision of other high risk pregnancies, third trimester Diet controlled gestational diabetes mellitus (GDM) in third trimester documented in this encounter Care Teams Vocational Teacher Relationship Specialty Start Date End Date Corina Spence APRN [address] [place] [address] PCP - General 09/11/[address] [address] Craft Demonstrator Dietitian 11/24/20 01/11/24 documented as of this encounter
--- OUTSIDE RECORDS SUMMARY | 2024-03-13 16:29 | XMS_ITS | Encounter Summary ---
Author Organization [facility] Address [address] [place] [address] Care Team Providers Care Roofing Technician Name Role Phone Corina Spence APRN Primary Care Provider [phone]- [phone] Unavailable [phone] Reason for Referral * Imaging (Routine) - Closed Specialty Diagnoses / Procedures Referred By Maylin davison Referred To Contact Diagnoses Diet controlled gestational diabetes mellitus (GDM) in third trimester Procedures OB US Follow Up Transabdominal Approach Felice Camacho MD [address] [place] [address] Phone: tel: fax: Referral ID Status Reason Start Date Expiration Date Visits Re quested Visits Authorized [id number] Closed 01/08/2021 07/07/2021 1 1 Reason for Visit * Reason Comments NST/BPP Visit Pt overall doing wel l. Encounter Details Date Type Department Care Team (Late st Contact Info) Description 01/08/2021 10:00 AM EDT Routine Obstetrics & Gynecology [address] [place] [address] Felice Camacho MD [address] [place] [address] Diet controlled gestational diabetes mellitus [...] Sign Reading Time Taken Comments Blood Pressure 118/84 01/08/2021 10:24 AM EDT Pulse - - Temperature - - Respiratory Rate - - Oxygen Saturation - - Inhaled Oxygen Concentration - - Weight 67.2 kg (148 lb 2.4 oz) 01/08/2021 10:24 AM EDT Height - - Body Mass Index 23.2 09/30/2020 11:29 AM EDT documented in this encounter Miscellaneous Notes * Significant Event - Felice Camacho MD - 01/08/2021 10:46 AM EDT 01/08/21 1045 Non-Stress Baby A Reason for Non-Stress Test [...] Progress Notes - Felice Camacho MD - 01/08/2021 10:00 AM EDT Subjective Chief Complaint Patient presents with ??? NST/BPP Visit Pt overall doing well. Byron Smith is a 25 y.o. at 35w2d with a working estimated date of delivery of 02/10/2021, by Last Menstrual Period who presents for a routine visit. She denies vaginal bleeding, leakage of fluid, decreased movements, or regular contractions. Lots of BH CTXS - on procardia 10 q 6 hrs. Her is complicated by: GDM A1 H/O PTB x 2 The following portions of the chart were reviewed this encounter and updated as appropriate: ALL Objective Physical Exam Weight: 67.2 kg (148 lb 2.4 oz) Expected Total Weight Gain: Could not be calculated Pregravid BMI: Could not be calculated BP: 118/84 Heart Rate: NST Labs Urine dip: NA [...] diabetes mellitus (GDM) in third trimester - OB US Follow Up Transabdominal Approach; Future Normal , incidental Continue vitamin. Labs reviewed. GBS at 36 weeks Expected mode of delivery Follow up in 2x/week for a routine visit & NSTs procardia documented in this encounter Plan of Treatment Upcoming Encounters Date Type Department Care Team (Late st Contact Info) Description 03/25/2024 8:00 AM EST Office Visit Obstetrics & Gynecology [address] [place] [address] Felice Camacho MD [address] [place] [address] 04/05/2024 9:00 AM EST Clinical Support Obstetrics & Gynecology [address] [place] [address] 05/03/2024 9:00 AM EST Clinical Support Obstetrics & [place] [address] 05/31/2024 9:00 AM EST Clinical Support Obstetrics & [place] [address] 06/28/2024 9:00 AM EST Clinical Support Obstetrics & [place] [address] documented as of this encounter Results * OB US Follow Up Transabdominal Approach (01/14/2021 8:46 AM EDT) Anatomical Region Laterality Modality Body Ultrasound 01/14/2021 8:20 AM EDT Impressions 01/14/2021 12:31 PM EDT The OB Ultrasound you requested has been resulted. Please navigate to the Imaging tab in [employer] for review. This message has been generated by the interface. Narrative Procedure Note Stacie Escalante MD - 01/14/2021 IMPRESSION: The OB Ultrasound you requested has been resulted. Please navigate to theImaging tab in [employer] for review. This message has been generated by [employer]. us Felice Camacho MD IMG OB US PROCEDURES Final Resu lt documented in this encounter Visit Diagnoses Diagnosis Diet controlled gestational diabetes mellitus (GDM) in third trimester- Primary Normal , incidental Diet controlled gestational diabetes mellitus (GDM) in third trimester documented in this encounter Care Teams Roofing Technician Relationship Specialty Start Date End Date Corina Spence APRN [address] [place] [address] PCP - General 09/11/[address] [address] Traffic Control Signaler Dietitian 11/24/20 01/11/24 documented as of this encounter
--- OUTSIDE RECORDS SUMMARY | 2024-03-13 16:29 | XMS_ITS | Encounter Summary ---
Author Organization [facility] Address [address] [place] [address] Care Team Providers Care Gag Writer Name Role Phone Corina Spence APRN Primary Care Provider [phone]- [phone] Unavailable [phone] Reason for Visit * Reason Onset Date Comments HCN - Patient Message 2020 Encounter Details Date Type Department Care Team (Late st Contact Info) Description 2020 Telephone Obstetrics & Gynecology [address] [place] [address] Felice Camacho MD [address] [place] [address] HCN - Patient Message Social History Tobacco Use Types Packs/Day Years Used Date Smoking Tobacco: Never [place] Depression Scale Answer Date Recorded [place] Depression Scale Total 0 02/18/2021 The thought of harming myself has occurred to me . Never 02/18/2021 Comments Yes Sex and Gender Information Value [...] encounter Miscellaneous Notes * Telephone Encounter - Felice Camacho MD - 2020 1:47 PM EDT I sent you a note about her yesterday & you sent the note to MATTHEW to get her set up for EDUC & PROFILE.... * Telephone Encounter - Lesa Henley MA - 2020 11:50 AM EDT Do you care to review her results * Telephone Encounter - Lydia Braga - 2020 11:43 AM EDT Patient Phone Message Reason for Call: Patient calling to eif her 3 hrs glucoca result from returned Best contact number and optimal time of day to reach caller: [phone] Note: Please do not reply to this message. Follow-up communication and further actions as a result of this message need to be communicated with the patient directly, if the patient is not active onMyChart. If the patient is active on MyChart, they will receive notification of the communication/outcome [facility] documented in this encounter Plan of Treatment Upcoming Encounters Date Type Department Care Team (Late st Contact Info) Description 03/25/2024 8:00 AM EST Office Visit Obstetrics & Gynecology [address] [place] [address] Felice Camacho MD [address] [place] [address] 04/05/2024 9:00 AM EST Clinical Support Obstetrics & Gynecology [address] [place] [address] 05/03/2024 9:00 AM EST Clinical Support Obstetrics & Gynecology [address] [place] [address] 05/31/2024 9:00 AM EST Clinical Support Obstetrics & Gynecology [address] [place] [address] 06/28/2024 9:00 AM EST Clinical Support Obstetrics & Gynecology [address] [place] [address] documented as of this encounter Visit Diagnoses Not on filedocumented in this encounter Care Teams Gag Writer Relationship Specialty Start Date End Date Corina Spence APRN [address] [place] [address] PCP - General 09/11/[address] [address] Contact Lens Molder Dietitian 11/24/20 01/11/24 documented as of this encounter
--- OUTSIDE RECORDS SUMMARY | 2024-03-13 16:29 | XMS_ITS | Encounter Summary ---
Author Organization [facility] Address [address] [place] [address] Care Team Providers Care Line Assembly Utility Worker Name Role Phone Corina Spence APRN Primary Care Provider [phone]- [phone] Encounter Details Date Type Department Care Team (Latest Contact Info) Description 11/09/2020 Travel Social History Tobacco Use Types Packs/Day [...] EST Office Visit Obstetrics & Gynecology [address] [place] [address] Felice Camacho MD [address] [place] [address] 04/05/2024 9:00 AM EST Clinical Support Obstetrics & Gynecology [address] [place] [address] 05/03/2024 9:00 AM EST Clinical Support Obstetrics & Gynecology [address] [place] [address] 05/31/2024 9:00 AM EST Clinical Support Obstetrics & Gynecology [address] [place] [address] 06/28/2024 9:00 AM EST Clinical Support Obstetrics & Gynecology [facility] [place] [address] documented as of this encounter Visit Diagnoses Not on filedocumented in this encounter Care Teams Line Assembly Utility Worker Relationship Specialty Start Date End Date Corina Spence APRN [facility] [place] [address] PCP - General 09/11/20 documented as of this encounter
--- OUTSIDE RECORDS SUMMARY | 2024-03-13 16:29 | XMS_ITS | Encounter Summary ---
Author Organization [facility] Address [address] [place] [address] Care Team Providers Care Patient Services Assistant Name Role Phone Corina Spence APRN Primary Care Provider [phone]- [phone] Unavailable [phone] Reason for Visit * Reason Onset Date Comments HCN - Patient Message 12/25/2020 caling for a nurse call back Encounter Details Date Type Department Care Team (Late st Contact Info) Description 12/25/2020 Telephone PFE SCHEDULING [address] [place] [address] Felice Camacho MD [facility] [place] [address] HCN - Patient Message (caling for a nurse call back) Social History Tobacco Use Types Packs/Day Years Used Date Smoking Tobacco: Never Smokeless Tobacco: Never Alcohol Use Standard Drinks/Week Comments Never 0 (1 standard drink = 0.6 oz pur e alcohol) [place] Depression Scale Answer Date Recorded [place] Depression Scale Total 0 02/18/2021 The thought [...] encounter Miscellaneous Notes * Telephone Encounter - Iva Frey RN - 12/25/2020 12:37 PM EDT Patient called and scheduled an appt. * Telephone Encounter - Mayelin Macias - 12/25/2020 12:25 PM EDT Patient Phone Message Reason for Call: Asking to speak to a nurse in Dr Camacho office for possible appointment today for stress test Best contact number and optimal time of day to reach caller: [phone] Note: Please do not reply to this message. Follow-up communication and further actions as a result of this message need to be communicated with the patient directly, if the patient is not active onMyChart. If the patient is active on MyChart, they will receive notification of the communication/outcome via [employer]. documented in this encounter Plan of Treatment Upcoming Encounters Date Type Department Care Team (Late st Contact Info) Description 03/25/2024 8:00 AM EST Office Visit Obstetrics & Gynecology [address] [place] [address] Felice Camacho MD [address] [place] [address] 04/05/2024 9:00 AM EST Clinical Support Obstetrics & Gynecology [address] [place] [address] 05/03/2024 9:00 AM EST Clinical Support Obstetrics & Gynecology [address] [place] [address] 05/31/2024 9:00 AM EST Clinical Support Obstetrics & Gynecology [address] [place] [address] 06/28/2024 9:00 AM EST Clinical Support Obstetrics & Gynecology [address] [place] [address] documented as of this encounter Visit Diagnoses Not on filedocumented in this encounter Care Teams Patient Services Assistant Relationship Specialty Start Date End Date Corina Spence APRN [address] [place] [address] PCP - General 09/11/[address] [facility] [address] [place] [address] Learning Technologist Dietitian 11/24/20 01/11/24 documented as of this encounter
--- OUTSIDE RECORDS SUMMARY | 2024-03-13 16:29 | XMS_ITS | Encounter Summary ---
Author Organization Healthcare Address [address] [place] [address] Care Team Providers Care Senior Buyer Planner Name Role Phone Corina Spence APRN Primary Care Provider [phone]- [phone] Unavailable [phone] Reason for Visit * Reason Onset Date Comments HCN - Patient Message 04/12/2021 ricarda worki n Encounter Details Date Type Department Care Team (Late st Contact Info) Description 04/12/2021 Telephone Obstetrics & Gynecology [address] [place] [address] Felice Camacho MD [address] [place] [address] HCN - Patient Message (poss workin) Social History Tobacco Use Types Packs/Day Years Used Date Smoking Tobacco: Never Smokeless Tobacco: Never Alcohol Use Standard Drinks/Week Comments Never 0 (1 standard drink = 0.6 oz pur e alcohol) [place] Depression Scale Answer Date Recorded [place] Depression Scale Total 0 02/18/2021 The thought [...] encounter Miscellaneous Notes * Telephone Encounter - Shawn Jimenez - 04/12/2021 8:32 AM EST Patient Phone Message Reason for Call: Dr Camacho pt: asking for urine check for poss uti. Says has uterine abnormality and having vaginal swelling Best contact number and optimal time of day to reach caller: Note: Please do not reply to this message. Follow-up communication and further actions as a result of this message need to be communicated with the patient directly, if the patient is not active onMyChart. If the patient is active on MyChart, they will receive notification of the communication/outcome via [employer]. documented in this encounter Plan of Treatment Upcoming Encounters Date Type Department Care Team (Late st Contact Info) Description 03/25/2024 8:00 AM EST Office Visit Obstetrics & Gynecology [address] [place] [address] Felice Camacho MD [address] [place] [address] 04/05/2024 9:00 AM EST Clinical Support Obstetrics & Gynecology [address] [place] [address] 05/03/2024 9:00 AM EST Clinical Support Obstetrics & Gynecology [address] [place] [address] 05/31/2024 9:00 AM EST Clinical Support Obstetrics & Gynecology [address] [place] [address] 06/28/2024 9:00 AM EST Clinical Support Obstetrics & Gynecology [address] [place] [address] documented as of this encounter Visit Diagnoses Not on filedocumented in this encounter Care Teams Senior Buyer Planner Relationship Specialty Start Date End Date Corina Spence APRN [address] [place] [address] PCP - General 09/11/[address] [address] Business Services Analyst Dietitian 11/24/20 01/11/24 documented as of this encounter
--- OUTSIDE RECORDS SUMMARY | 2024-03-13 16:29 | XMS_ITS | Encounter Summary ---
Author Organization Healthcare Address [address] [place] [address] Care Team Providers Care Matrix Plater Name Role Phone Corina Spence APRN Primary Care Provider [phone]- [phone] Unavailable [phone] Encounter Details Date Type Department Care Team (Latest Contact Info) Description 01/05/2021 Travel Social History Tobacco Use Types Packs/Day [...] EST Office Visit Obstetrics & Gynecology [address] [place] [address] Felice Camacho MD [address] [place] [address] 04/05/2024 9:00 AM EST Clinical Support Obstetrics & Gynecology [address] [place] [address] 05/03/2024 9:00 AM EST Clinical Support Obstetrics & Gynecology [address] [place] [address] 05/31/2024 9:00 AM EST Clinical Support Obstetrics & Gynecology [address] [place] [address] 06/28/2024 9:00 AM EST Clinical Support Obstetrics & Gynecology [address] [place] [address] documented as of this encounter Visit Diagnoses Not on filedocumented in this encounter Care Teams Matrix Plater Relationship Specialty Start Date End Date Corina Spence APRN [facility] [place] [address] PCP - General 09/11/[address] [address] Tool Programmer Dietitian 11/24/20 01/11/24 documented as of this encounter
--- OUTSIDE RECORDS SUMMARY | 2024-03-13 16:29 | XMS_ITS | Encounter Summary ---
Author Organization [facility] Address [address] [place] [address] Care Team Providers Care Fitting Supervisor Name Role Phone Corina Spence APRN Primary Care Provider [phone]- [phone] Unavailable [phone] Reason for Visit * Reason Comments Ultrasound Growth, vertex, 25% , ac 22%, efw 2543g, fhr 147, raquel 9.7, bpp 8/8. Encounter Details Date Type Department Care Team (Late st Contact Info) Description 01/14/2021 10:15 AM EDT Routine [facility] [address] [place] [address] Felice Camacho MD [address] [place] [address] Normal , incidental (Primary Dx); [...] Sign Reading Time Taken Comments Blood Pressure 121/83 01/14/2021 8:46 AM EDT Pulse - - Temperature - - Respiratory Rate - - Oxygen Saturation - - Inhaled Oxygen Concentration - - Weight 69.9 kg (154 lb 1.6 oz) 01/14/2021 8:46 A M EDT Height - - Body Mass Index 24.14 09/30/2020 11:29 AM EDT documented in this encounter Miscellaneous Notes * Progress Notes - Felice Camacho MD - 01/14/2021 10:15 AM EDT Subjective Chief Complaint Patient presents with ??? Ultrasound Growth, vertex, 25%, ac 22%, efw 2543g, fhr 147, raquel 9.7, bpp 8/8. Byron Smith is a 25 y.o. at 36w1d with a working estimated date of delivery of 02/10/2021, by Last Menstrual Period who presents for a routine visit. She denies vaginal bleeding, leakage of fluid, decreased movements, or regular contractions. Her is complicated by: GDM A1 The following portions of the chart were reviewed this encounter and updated as appropriate: ALL Objective Physical Exam Weight: 69.9 kg (154 lb 1.6 oz) Expected Total Weight Gain: Could not be calculated Pregravid BMI: Could not be calculated BP: 121/83 Heart Rate: NST Presentation: Vertex Dilation: 2 Effacement (%): 80 Station: -2 Labs Urine dip: NA HGB (g/dL) Date/Time [...] Hour (mg/dL) Date/Time Value 11/09/2020 1114 138 Imaging Growth US OK - BPP 12/06 Assessment/Plan Diagnoses and all orders for this visit: Normal , incidental - Group B Streptococcus by PCR Diet controlled gestational diabetes mellitus (GDM) in third trimester Continue vitamin. Labs reviewed. GBS taken. Expected mode of delivery Follow up in 2x/week for a routine visit & NSTs FLU done documented in this encounter Plan of Treatment Upcoming Encounters Date Type Department Care Team (Late st Contact Info) Description 03/25/2024 8:00 AM EST Office Visit Obstetrics & Gynecology [address] [place] [address] Felice Camacho MD [address] [place] [address] 04/05/2024 9:00 AM EST Clinical Support Obstetrics & Gynecology [address] [place] [address] 05/03/2024 9:00 AM EST Clinical Support Obstetrics & Gynecology [address] [place] [address] 05/31/2024 9:00 AM EST Clinical Support Obstetrics & Gynecology [address] [place] [address] 06/28/2024 9:00 AM EST Clinical Support Obstetrics & Gynecology [address] [place] [address] documented as of this encounter Procedures Procedure Name Priority Date/Time Associated Diagnosis Comments GROUP B STREPTOCOCCUS BY PCR Routine 01/14/2021 8:49 AM EDT Normal , incidental documented in this encounter Results * Group B Streptococcus by PCR (01/14/2021 8:49 AM EDT) Group B Streptococcus PCR Result Not Detected Not Detected 01/15/2021 8:11 AM EDT [facility] Swab Rectovaginal / Unknown Non-blood Collection / Unknown 01/14/2021 8:49 AM EDT 01/14/2021 12:55 PM EDT Felice Camacho MD LAB BLOOD ORDERABLES Final Resu lt [facility] [address] [place] [address] documented in this encounter Visit Diagnoses Diagnosis Normal , incidental- Primary Diet controlled gestational diabetes mellitus (GDM) in third trimester documented in this encounter Care Teams Fitting Supervisor Relationship Specialty Start Date End Date Corina Spence APRN [facility]0 [place] [id number] PCP - General 09/11/[address] [address] Recovery Coordinator Dietitian 11/24/20 01/11/24 documented as of this encounter
--- OUTSIDE RECORDS SUMMARY | 2024-03-13 16:29 | XMS_ITS | Encounter Summary ---
Author Organization Healthcare Address [address] [place] [address] Care Team Providers Care Cath Lab Manager Name Role Phone Corina Spence APRN Primary Care Provider [phone]- [phone] Unavailable [phone] Reason for Visit * Reason Comments Routine Visit Having contractio ns and back pain Encounter Details Date Type Department Care Team (Late st Contact Info) Description 12/16/2020 11:45 AM EDT Routine Obstetrics & Gynecology [address] [place] [address] Felice Camacho MD [address] [place] [address] Normal , incidental (Primary Dx); [...] Reading Time Taken Comments Blood Pressure 119/78 12/16/2020 10:28 AM EDT Pulse - - Temperature - - Respiratory Rate - - Oxygen Saturation - - Inhaled Oxygen Concentration - - Weight 69.1 kg (152 lb 5.4 oz) 12/16/2020 10:28 AM EDT Height - - Body Mass Index 23.86 09/30/2020 11:29 AM EDT documented in this encounter Miscellaneous Notes * Progress Notes - Felice Camacho MD - 12/16/2020 11:45 AM EDT Subjective Chief Complaint Patient presents with ??? Routine Visit Having contractions and back pain Byron Smith is a 25 y.o. at 32w0d with a working estimated date of delivery of 02/10/2021, by Last Menstrual Period who presents for a routine visit. She denies vaginal bleeding, leakage of fluid, decreased movements, or regular contractions. She is having lots of BH CTXS and irritability. See US & NST today. Her is complicated by: H/O PTB GDM A1 The following portions of the chart were reviewed this encounter and updated as appropriate: ALL Objective Physical Exam Weight: 69.1 kg (152 lb 5.4 oz) Expected Total Weight Gain: Could not be calculated Pregravid BMI: Could not be calculated BP: 119/78 Heart Rate: NST Presentation: Vertex Dilation: Closed Effacement (%): 70 Station: -2 Labs Urine dip: neg/neg HGB [...] Date/Time Value 11/09/2020 1114 138 NST - Reassuring for GA Assessment/Plan Diagnoses and all orders for this visit: Normal , incidental - POCT URINALYSIS DIPSTICK Diet controlled gestational diabetes mellitus (GDM) in third trimester Other orders - NIFEdipine (Procardia) 10 MG capsule; Take 1 capsule (10 mg total) by mouth every 6 (six) hours. Continue vitamin. Labs reviewed. GBS taken. Expected mode of delivery Follow up in 2x/week for a routine visit & NSTs Start Procardia 10 q 6 hrs * Significant Event - Felice Camacho MD - 12/16/2020 10:55 AM EDT 12/16/20 1055 Non-Stress Baby A Reason for Non-Stress Test [...] Non-Stress Test Reactive $ NST Charge 1 documented in this encounter Plan of Treatment Upcoming Encounters Date Type Department Care Team (Late st Contact Info) Description 03/25/2024 8:00 AM EST Office Visit Obstetrics & Gynecology [address] [place] [address] Felice Camacho MD [address] [place] [address] 04/05/2024 9:00 AM EST Clinical Support Obstetrics & Gynecology [address] [place] [address] 05/03/2024 9:00 AM EST Clinical Support Obstetrics & Gynecology [address] [place] [address] 05/31/2024 9:00 AM EST Clinical Support Obstetrics & Gynecology [address] [place] [address] 06/28/2024 9:00 AM EST Clinical Support Obstetrics & Gynecology [address] [place] [address] documented as of this encounter Procedures Procedure Name Priority Date/Time Associated Diagnosis Comments POCT URINALYSIS DIPSTICK Routine 12/16/2020 10:47 AM EDT Normal , incidental documented in this encounter Results * (ABNORMAL) Urine dip (12/16/2020 10:47 AM EDT) POCT Glucose Urine 100(A) Negative mg/dL POCT Bilirubin, Urine Small(A) Negative POCT Ketones, Urine Negative Negative mg/dL POCT Blood, Urine Negative Negative POCT Protein, Urine Trace(A) Negative mg/dL POCT Nitrite, Urine Negative Negative POCT Leukocyte Esterase, Urine Negative Negative Urine Urine specimen obtained by clean catch procedure / Unknown 12/16/2020 10:47 AM EDT Felice Camacho MD POINT OF CARE TEST ENTER/EDIT O RDERABLES Final Result documented in this encounter Visit Diagnoses Diagnosis Normal , incidental- Primary Diet controlled gestational diabetes mellitus (GDM) in third trimester documented in this encounter Care Teams Cath Lab Manager Relationship Specialty Start Date End Date Corina Spence APRN [address] [place] [address] PCP - General 09/11/[address] [address] Pbx Mechanic Dietitian 11/24/20 01/11/24 documented as of this encounter
--- OUTSIDE RECORDS SUMMARY | 2024-03-13 16:29 | XMS_ITS | Encounter Summary ---
Author Organization Healthcare Address [address] [place] [address] Care Team Providers Care Engine Lathe Operator Name Role Phone Corina Spence APRN Primary Care Provider [phone]- [phone] Unavailable [phone] Encounter Details Date Type Department Care Team (Latest Contact Info) Description 12/21/2020 Travel Social History Tobacco Use Types Packs/Day [...] EST Office Visit Obstetrics & Gynecology [address] [place] [address] Felice Camacho MD [address] [place] [address] 04/05/2024 9:00 AM EST Clinical Support Obstetrics & Gynecology [address] [place] [address] 05/03/2024 9:00 AM EST Clinical Support Obstetrics & Gynecology [address] [place] [address] 05/31/2024 9:00 AM EST Clinical Support Obstetrics & Gynecology [address] [place] [address] 06/28/2024 9:00 AM EST Clinical Support Obstetrics & Gynecology [address] [place] [address] documented as of this encounter Visit Diagnoses Not on filedocumented in this encounter Care Teams Engine Lathe Operator Relationship Specialty Start Date End Date Corina Spence APRN [facility] [place] [address] PCP - General 09/11/[address] [phone] Horticultural Farmer Dietitian 11/24/20 01/11/24 documented as of this encounter
--- OUTSIDE RECORDS SUMMARY | 2024-03-13 16:29 | XMS_ITS | Encounter Summary ---
Author Organization [facility] Address [address] [place] [address] Care Team Providers Care Cath Lab Technologist Name Role Phone Corina Spence APRN Primary Care Provider [phone]- [phone] Unavailable [phone] Encounter Details Date Type Department Care Team (Latest Contact Info) Description 12/31/2020 Travel Social History Tobacco Use Types Packs/Day [...] EST Office Visit Obstetrics & Gynecology [address] [place] [address] Felice Camacho MD [address] [place] [address] 04/05/2024 9:00 AM EST Clinical Support Obstetrics & Gynecology [address] [place] [address] 05/03/2024 9:00 AM EST Clinical Support Obstetrics & Gynecology [address] [place] [address] 05/31/2024 9:00 AM EST Clinical Support Obstetrics & Gynecology [address] [place] [address] 06/28/2024 9:00 AM EST Clinical Support Obstetrics & Gynecology [address] [place] [address] documented as of this encounter Visit Diagnoses Not on filedocumented in this encounter Care Teams Cath Lab Technologist Relationship Specialty Start Date End Date Corina Spence APRN [facility] [place] [address] PCP - General 09/11/[address] [phone] Director Content Marketing Dietitian 11/24/20 01/11/24 documented as of this encounter
--- OUTSIDE RECORDS SUMMARY | 2024-03-13 16:29 | XMS_ITS | Encounter Summary ---
Author Organization Healthcare Address [address] [place] [address] Care Team Providers Care Warehouse Administrator Name Role Phone Corina Spenec APRN Primary Care Provider [phone]- [phone] Unavailable [phone] Reason for Visit * Reason Comments Gestational Diabetes * Consultation (Routine) - Closed Specialty Diagnoses / Procedures Referred By Maylin davison Referred To Contact Diabetes Services Diagnoses Diet controlled gestational diabetes mellitus (GDM) in second trimester Felice Camacho MD [address] [place] [address] Phone: tel: fax: Referral ID Status Reason Start Date Expiration Date Visits Re quested Visits Authorized [id number] Closed 11/11/2020 05/10/2021 1 1 Encounter Details Date Type Department Care Team (Late st Contact Info) Description 11/24/2020 8:30 AM EDT Education [facility] Diabetes Education [address], [address] [place] [address] [place] [address] Diet controlled gestational diabetes mellitus (GDM) in second trimester Social History Tobacco Use Types Packs/Day [...] encounter Miscellaneous Notes * Progress Notes - Danae Carreon RD - 11/24/2020 8:30 AM EDT Patient Verification Patient identity has been confirmed using name and date of ? Yes Authorizations and Agreements/Telemedicine Consent sent and consent confirmed? Yes Patient Location: Patient's Home Patient confirms they are physically located in [place]? Yes If the patient is not physically located in [place], the provider has confirmed with Legal thatthe provider is authorized to provide services in patient's stated location? N/A Provider Location: HealthCare Facility Audio and video or audio only? Audio and video Total visit time: 60 minutes The following goals were set with the patient today: 1) Carb goals - 30 g breakfast, 15 g morning snack, 45 g lunch, 15 g afternoon snack, 60 g dinner, 15 g bedtime snack 2) Read nutrition labels, use [employer] florencia and Food Lists (emailed her) to raise carbohydrate awareness 3) Continue with monitoring fasting and pre/post meals as her provider recommended - notify provider if BG begin runningabove target documented in this encounter Plan of Treatment Upcoming Encounters Date Type Department Care Team (Late st Contact Info) Description 03/25/2024 8:00 AM EST Office Visit Obstetrics & Gynecology [address] [place] [address] Felice Camacho MD [address] [place] [address] 04/05/2024 9:00 AM EST Clinical Support Obstetrics & Gynecology [address] [place] [address] 05/03/2024 9:00 AM EST Clinical Support Obstetrics & Gynecology [address] [place] [address] 05/31/2024 9:00 AM EST Clinical Support Obstetrics & Gynecology [address] [place] [address] 06/28/2024 9:00 AM EST Clinical Support Obstetrics & Gynecology [address] [place] [address] documented as of this encounter Visit Diagnoses Diagnosis Diet controlled gestational diabetes mellitus (GDM) in second trimester documented in this encounter Care Teams Warehouse Administrator Relationship Specialty Start Date End Date Corina Spence APRN [facility]0 [place] [address] PCP - General 09/11/[address] [address] Stone Circular Sawyer Dietitian 11/24/20 01/11/24 documented as of this encounter
--- OUTSIDE RECORDS SUMMARY | 2024-03-13 16:29 | XMS_ITS | Encounter Summary ---
Author Organization Healthcare Address [address] [place] [address] Care Team Providers Care Structural Steel Painter Name Role Phone Corina Spence APRN Primary Care Provider [phone]- [phone] Unavailable [phone] Reason for Visit * Reason Comments Follow-up Encounter Details Date Type Department Care Team (Late st Contact Info) Description 03/09/2021 Education [facility] Diabetes Education [address] [facility], [address] [place] [address] Danae Carreon, RD [address] [facility] [address] [place] [address] Social History Tobacco Use Types Packs/Day Years Used Date Smoking Tobacco: Never Smokeless Tobacco: Never Alcohol Use Standard Drinks/Week Comments Never 0 (1 standard drink = 0.6 oz pur e alcohol) Chandler Depression Scale Answer Date Recorded Chandler Depression Scale Total 0 02/18/2021 The thought [...] EST Office Visit Obstetrics & Gynecology [address] [place] [address] Felice Camacho MD [address] [place] [address] 04/05/2024 9:00 AM EST Clinical Support Obstetrics & Gynecology [address] [place] [address] 05/03/2024 9:00 AM EST Clinical Support Obstetrics & Gynecology [address] [place] [address] 05/31/2024 9:00 AM EST Clinical Support Obstetrics & Gynecology [address] [place] [address] 06/28/2024 9:00 AM EST Clinical Support Obstetrics & Gynecology [address] [place] [address] documented as of this encounter Visit Diagnoses Not on filedocumented in this encounter Care Teams Structural Steel Painter Relationship Specialty Start Date End Date Corina Spence, HEAD ANIMAL TRAINER [facility] [place] [address] PCP - General 09/11/[address] [address] Senior Finance Manager Dietitian 11/24/20 01/11/24 documented as of this encounter
--- OUTSIDE RECORDS SUMMARY | 2024-03-13 16:30 | XMS_ITS | Encounter Summary ---
Author Organization Healthcare Address [address] [place] [address] Care Team Providers Care Lineman A Class Name Role Phone Unavailable Primary Care Provider Unavailabl e Encounter Details Date Type Department Care Team (Late st Contact Info) Description 07/29/2015 [facility] Vitals Encounter [facility] [address] [place] [address] Provider, MD Pradip [address] [place] [address] Social History Tobacco Use Types Packs/Day Years Used Date Smoking Tobacco: Never Assessed Comments Unknown Sex and Gender Information Value Date Recorded Sex Assigned at Not on file Legal Sex Female 8:38 PM EDT Gender Identity Not on file Sexual Orientation Bisexual 01/07/2024 3: 53 PM EDT documented as of this encounter Last Filed Vital Signs Vital Sign Reading Time Taken Comments Blood Pressure - - Pulse - - Temperature - - Respiratory Rate - - Oxygen Saturation - - Inhaled Oxygen Concentration - - Weight 60.8 kg (133 lb 15.9 oz) 07/29/2015 1:17 PM EDT Height - - Body Mass Index 20.99 05/27/2015 9:11 AM EST documented in this encounter Plan of Treatment Upcoming Encounters Date Type Department Care Team (Late st Contact Info) Description 03/25/2024 8:00 AM EST Office Visit Obstetrics & Gynecology [address] [place] [address] Felice Camacho MD [address] [place] [address] 04/05/2024 9:00 AM EST Clinical Support Obstetrics & Gynecology [address] [place] [address] 05/03/2024 9:00 AM EST Clinical Support Obstetrics & Gynecology [address] [place] [address] 05/31/2024 9:00 AM EST Clinical Support Obstetrics & Gynecology [address] [place] [address] 06/28/2024 9:00 AM EST Clinical Support Obstetrics & Gynecology [address] [place] [address] documented as of this encounter Visit Diagnoses Not on filedocumented in this encounter
--- OUTSIDE RECORDS SUMMARY | 2024-03-13 16:30 | XMS_ITS | Encounter Summary ---
Author Organization [facility] Address [address] [place] [address] Care Team Providers Care Coal Cutting Machine Operator Name Role Phone Corina Spence APRN Primary Care Provider [phone]- [phone] Encounter Details Date Type Department Care Team (Late st Contact Info) Description 10/21/2020 Abstract [facility] [address] [place] [address] [place] [address] Social History Tobacco Use Types Packs/Day Years [...] EST Office Visit Obstetrics & Gynecology [address] [place] [address] Felice Camacho MD [address] [place] [address] 04/05/2024 9:00 AM EST Clinical Support Obstetrics & Gynecology [address] [place] [address] 05/03/2024 9:00 AM EST Clinical Support Obstetrics & Gynecology [address] [place] [address] [address] 05/31/2024 9:00 AM EST Clinical Support Obstetrics & Gynecology [address] [place] [address] [address] 06/28/2024 9:00 AM EST Clinical Support Obstetrics & Gynecology [address] [place] [address] [address] documented as of this encounter Procedures Procedure Name Priority Date/Time Associated Diagnosis Comments CHLAMYDIA TRACHOMATIS DNA BY PCR Routine 06/17/2020 CHLAMYDIA TRACHOMATIS DNA BY PCR Routine 06/17/2020 HIV 1/2 ANTIBODY/ANTIGEN SCREEN WITH REFLEX TO HIV I/II DIFFERENTIATION Routine 06/17/2020 HIV 1/2 ANTIBODY/ANTIGEN SCREEN WITH REFLEX TO HIV I/II DIFFERENTIATION Routine 06/17/2020 ABO/RH Routine 06/17/2020 RUBELLA ANTIBODY IGG Routine 06/17/2020 HEPATITIS B SURFACE ANTIGEN Routine 06/17/2020 ANTIBODY SCREEN Routine 06/17/2020 documented in this encounter Results * Rubella Antibody IgG (06/17/2020) External Rubella IGG Quantitation Negative Blood Venous blood specimen / Unknown us Historical Provider LAB BLOOD ORDERABLES Jaylyn l Result * Hepatitis B Surface Antigen (06/17/2020) External Hepatitis B Surface Ag Negative Negative, None Detected Blood Venous blood specimen / Unknown Historical Provider LAB BLOOD ORDERABLES Jaylyn l Result * ABO/Rh (06/17/2020) ABO Grouping A Blood Venous blood specimen / Unknown Result [facility] Provider MD LAB BLOOD BANK TEST ORDER MASTER Final Result * Antibody Screen (06/17/2020) External Antibody Screen Negative Blood Venous blood specimen / Unknown Result [facility] Provider MD LAB BLOOD BANK TEST ORDER MASTER Final Result * Chlamydia trachomatis DNA by PCR (06/17/2020) External Chlamydia Trachomatis Negative Urine Result [facility] Provider MD LAB MICROBIOLOGY - GENERA L ORDERABLES Final Result * Chlamydia trachomatis DNA by PCR (06/17/2020) External Chlamydia Trachomatis Negative Urine Result [facility] Provider MD LAB MICROBIOLOGY - GENERA L ORDERABLES Final Result * HIV 1 & 2 Antibody/Antigen Screen (06/17/2020) Pathologist [facility] External HIV 1/2 Ab/Ag Negative Blood Venous blood specimen / Unknown Result [facility] Provider MD LAB BLOOD ORDERABLES Jaylyn l Result * HIV 1 & 2 Antibody/Antigen Screen (06/17/2020) External HIV 1/2 Ab/Ag Negative Blood Venous blood specimen / Unknown Result [facility] Provider MD LAB BLOOD ORDERABLES Jaylyn l Result documented in this encounter Visit Diagnoses Not on filedocumented in this encounter Care Teams Coal Cutting Machine Operator Relationship Specialty Start Date End Date Corina Spence APRN [facility] [place] [address] PCP - General 09/11/20 documented as of this encounter
--- OUTSIDE RECORDS SUMMARY | 2024-03-13 16:30 | XMS_ITS | Encounter Summary ---
Author Organization Healthcare Address [address] [place] [address] Care Team Providers Care Endband Cutter Hand Name Role Phone Unavailable Primary Care Provider Unavailabl e Encounter Details Date Type Department Care Team (Late st Contact Info) Description 10/21/2015 [facility] Vitals Encounter [facility] [address] [place] [address] Provider, MD Pradip [address] [place] [address] Social History Tobacco Use Types Packs/Day [...] - Inhaled Oxygen Concentration - - Weight 56.3 kg (124 lb 2.3 oz) 10/21/2015 11:44 AM EDT Height - - Body Mass Index 19.44 05/27/2015 9:11 AM EST documented in this encounter Plan of Treatment Upcoming Encounters Date Type Department Care Team (Late st Contact Info) Description 03/25/2024 8:00 AM EST Office Visit Obstetrics & Gynecology [address] [place] [address] Felice Camacho MD [address] [place] [address] 04/05/2024 9:00 AM EST Clinical Support Obstetrics & Gynecology [address] [place] [address] 05/03/2024 9:00 AM EST Clinical Support Obstetrics & Gynecology [address] [place] [address] 05/31/2024 9:00 AM EST Clinical Support Obstetrics & Gynecology [address] [place] [address] 06/28/2024 9:00 AM EST Clinical Support Obstetrics & Gynecology [address] [place] [address] documented as of this encounter Visit Diagnoses Not on filedocumented in this encounter
--- OUTSIDE RECORDS SUMMARY | 2024-03-13 16:30 | XMS_ITS | Encounter Summary ---
Author Organization Healthcare Address [address] [place] [address] Care Team Providers Care Oven Worker Name Role Phone Unavailable Primary Care Provider Unavailabl e Encounter Details Date Type Department Care Team (Late st Contact Info) Description 12/15/2015 [facility] AE[facility] Vitals Encounter [facility] [address] [place] [address] Provider, MD Pradip [address] [place] [address] Social History Tobacco Use Types Packs/Day [...] - Inhaled Oxygen Concentration - - Weight 54.2 kg (119 lb 8.2 oz) 12/15/2015 11:40 AM EDT Height - - Body Mass Index 18.72 05/27/2015 9:11 AM EST documented in this encounter Plan of Treatment Upcoming Encounters Date Type Department Care Team (Late st Contact Info) Description 03/25/2024 8:00 AM EST Office Visit Obstetrics & Gynecology [address] [place] [address] Felice Camacho MD [address] [place] [address] 04/05/2024 9:00 AM EST Clinical Support Ob[facility]etrics & Gynecology [address] [place] [address] 05/03/2024 9:00 AM EST Clinical Support Ob[facility]etrics [facility] Gynecology [address] [place] [address] 05/31/2024 9:00 AM EST Clinical Support Ob[facility]etrics & Gynecology [address] [place] [address] 06/28/2024 9:00 AM EST Clinical Support Obstetrics & Gynecology [address] [place] [address] documented as of this encounter Visit Diagnoses Not on filedocumented in this encounter
--- OUTSIDE RECORDS SUMMARY | 2024-03-13 16:30 | XMS_ITS | Encounter Summary ---
Author Organization Healthcare Address [address] [place] [address] Care Team Providers Care Melt House Supervisor Name Role Phone Unavailable Primary Care Provider Unavailabl e Encounter Details Date Type Department Care Team (Late st Contact Info) Description 01/26/2016 [facility] AEHR Vitals Encounter [facility] [address] [place] [address] Provider, MD Pradip [address] [place] [address] Social History Tobacco Use Types Packs/Day [...] - Inhaled Oxygen Concentration - - Weight 53.8 kg (118 lb 8 oz) 01/26/2016 11:23 AM EDT Height - - Body Mass Index 18.56 05/27/2015 9:11 AM EST documented in this encounter Plan of Treatment Upcoming Encounters Date Type Department Care Team (Late st Contact Info) Description 03/25/2024 8:00 AM EST Office Visit Obstetrics & Gynecology [address] [place] [address] Felice Camacho MD [address] [place] [address] 04/05/2024 9:00 AM EST Clinical Support Ob[facility]etrics & Gynecology [address] [place] [address] 05/03/2024 9:00 AM EST Clinical Support Ob[facility]etrics & Gynecology [address] [place] [address] 05/31/2024 9:00 AM EST Clinical Support Ob[facility]etrics & Gynecology [address] [place] [address] 06/28/2024 9:00 AM EST Clinical Support Obstetrics & Gynecology [address] [place] [address] documented as of this encounter Visit Diagnoses Not on filedocumented in this encounter
--- OUTSIDE RECORDS SUMMARY | 2024-03-13 16:30 | XMS_ITS | Encounter Summary ---
Author Organization Healthcare Address [address] [place] [address] Care Team Providers Care Transportation Coordinator Name Role Phone Unavailable Primary Care Provider Unavailabl e Encounter Details Date Type Department Care Team (Late st Contact Info) Description 11/25/2015 [facility] AEHR Vitals Encounter [facility] [address] [place] [address] Provider, MD Pradip [address] [place] [address] Social History Tobacco Use Types Packs/Day [...] Weight 54.2 kg (119 lb 8.2 oz) 11/25/2015 11:30 AM EDT Height - - Body Mass Index 18.72 05/27/2015 9:11 AM EST documented in this encounter Plan of Treatment Upcoming Encounters Date Type Department Care Team (Late st Contact Info) Description 03/25/2024 8:00 AM EST Office Visit Obstetrics & Gynecology [address] [place] [address] Felice Camacho MD [address] [place] [address] 04/05/2024 9:00 AM EST Clinical Support Obstetrics & Gynecology [address] [place] [address] 05/03/2024 9:00 AM EST Clinical Support Ob[facility]etrics & Gynecology [address] [place] [address] 05/31/2024 9:00 AM EST Clinical Support Ob[facility]s & Gy[facility] [address] [place] [address] 06/28/2024 9:00 AM EST Clinical Support Obstetrics & Gynecology [address] [place] [address] documented as of this encounter Visit Diagnoses Not on filedocumented in this encounter
--- OUTSIDE RECORDS SUMMARY | 2024-03-13 16:30 | XMS_ITS | Encounter Summary ---
Author Organization Healthcare Address [address] [place] [address] Care Team Providers Care Vc++ Developer Name Role Phone Unavailable Primary Care Provider Unavailabl e Encounter Details Date Type Department Care Team (Late st Contact Info) Description 05/24/2016 [facility] AEHR Vitals Encounter [facility] [address] [place] [address] Provider, MD Pradip [address] [place] [address] Social History Tobacco Use Types Packs/Day [...] - Inhaled Oxygen Concentration - - Weight 54 kg (119 lb 0.1 oz) 05/24/2016 8:57 AM EST Height - - Body Mass Index 18.64 05/27/2015 9:11 AM EST documented in this encounter Plan of Treatment Upcoming Encounters Date Type Department Care Team (Late st Contact Info) Description 03/25/2024 8:00 AM EST Office Visit Obstetrics & Gynecology [address] [place] [address] Felice Camacho MD [address] [place] [address] 04/05/2024 9:00 AM EST Clinical Support Obstetrics & Gynecology [address] [place] [address] 05/03/2024 9:00 AM EST Clinical Support Obstetrics & Gynecology [address] [place] [address] 05/31/2024 9:00 AM EST Clinical Support Ob[facility]s & Gy[facility]cology [address] [place] [address] 06/28/2024 9:00 AM EST Clinical Support Ob[facility]etrics & Gynecology [address] [place] [address] documented as of this encounter Visit Diagnoses Not on filedocumented in this encounter
--- OUTSIDE RECORDS SUMMARY | 2024-03-13 16:30 | XMS_ITS | Encounter Summary ---
Author Organization Healthcare Address [address] [place] [address] Care Team Providers Care Boiler Control Room Operator Name Role Phone Unavailable Primary Care Provider Unavailabl e Encounter Details Date Type Department Care Team (Late st Contact Info) Description 09/16/2015 [facility] AEHR Vitals Encounter [facility] [address] [place] [address] Provider, MD Pradip [address] [place] [address] Social History Tobacco Use Types Packs/Day [...] - Inhaled Oxygen Concentration - - Weight 58.9 kg (129 lb 12.9 oz) 09/16/2015 1:18 PM EDT Height - - Body Mass Index 20.33 05/27/2015 9:11 AM EST documented in this encounter Plan of Treatment Upcoming Encounters Date Type Department Care Team (Late st Contact Info) Description 03/25/2024 8:00 AM EST Office Visit Obstetrics & Gynecology [address] [place] [address] Felice Camacho MD [address] [place] [address] 04/05/2024 9:00 AM EST Clinical Support Obstetrics & Gynecology [address] [place] [address] 05/03/2024 9:00 AM EST Clinical Support Ob[facility] & Gynecology [address] [place] [address] 05/31/2024 9:00 AM EST Clinical Support Ob[facility] Gy[facility]cology [address] [place] [address] 06/28/2024 9:00 AM EST Clinical Support Obstetrics & Gynecology [address] [place] [address] documented as of this encounter Visit Diagnoses Not on filedocumented in this encounter
--- OUTSIDE RECORDS SUMMARY | 2024-03-13 16:30 | XMS_ITS | Encounter Summary ---
Author Organization Healthcare Address [address] [place] [address] Care Team Providers Care Visually Impaired Teacher Name Role Phone Unavailable Primary Care Provider Unavailabl e Encounter Details Date Type Department Care Team (Late st Contact Info) Description 05/27/2015 [facility] AEHR Vitals Encounter [facility] [address] [place] [address] Provider, MD Pradip [address] [place] [address] Social History Tobacco Use Types Packs/Day [...] - Inhaled Oxygen Concentration - - Weight 58.6 kg (129 lb 4.1 oz) 05/27/2015 9:11 A M EST Height 170.2 cm (5' 7 ) 05/27/2015 9:11 AM EST Body Mass Index 20.24 05/27/2015 9:11 AM EST documented in this encounter Plan of Treatment Upcoming Encounters Date Type Department Care Team (Late st Contact Info) Description 03/25/2024 8:00 AM EST Office Visit Obstetrics & Gynecology [address] [place] [address] Felice Camacho MD [address] [place] [address] 04/05/2024 9:00 AM EST Clinical Support Obstetrics & Gynecology [address] [place] [address] 05/03/2024 9:00 AM EST Clinical Support Obstetrics & Gynecology [facility] [address] [place] [address] 05/31/2024 9:00 AM EST Clinical Support Obstetrics & Gynecology [facility] [place] [address] 06/28/2024 9:00 AM EST Clinical Support Obstetrics & Gynecology [facility] [place] [address] documented as of this encounter Visit Diagnoses Not on filedocumented in this encounter
--- OUTSIDE RECORDS SUMMARY | 2024-03-13 16:30 | XMS_ITS | Encounter Summary ---
Author Organization Healthcare Address [address] [place] [address] Care Team Providers Care Spray Gun Sizer Name Role Phone Unavailable Primary Care Provider Unavailabl e Encounter Details Date Type Department Care Team (Late st Contact Info) Description 07/08/2015 Legacy AEHR Vitals Encounter [facility] [address] [place] [address] Provider, MD Pradip [address] [place] [address] Social History Tobacco Use Types Packs/Day [...] - Inhaled Oxygen Concentration - - Weight 59.2 kg (130 lb 7.8 oz) 07/08/2015 10:33 AM EST Height - - Body Mass Index 20.44 05/27/2015 9:11 AM EST documented in this encounter Plan of Treatment Upcoming Encounters Date Type Department Care Team (Late st Contact Info) Description 03/25/2024 8:00 AM EST Office Visit Obstetrics & Gynecology [address] [place] [address] Felice Camacho MD [address] [place] [address] 04/05/2024 9:00 AM EST Clinical Support Obstetrics & Gynecology [address] [place] [address] 05/03/2024 9:00 AM EST Clinical Support Obstetrics & Gynecology [address] [place] [address] 05/31/2024 9:00 AM EST Clinical Support Obstetrics & Gynecology [address] [place] [address] 06/28/2024 9:00 AM EST Clinical Support Obstetrics & Gynecology [address] [place] [address] documented as of this encounter Visit Diagnoses Not on filedocumented in this encounter
--- OUTSIDE RECORDS SUMMARY | 2024-03-13 16:30 | XMS_ITS | Encounter Summary ---
Author Organization [facility] Address [address] [place] [address] Care Team Providers Care Spudder Name Role Phone Corina Spence APRN Primary Care Provider +1- [phone] Encounter Details Date Type Department Care Team (Latest Contact Info) Description 10/29/2020 Travel Social History Tobacco Use Types Packs/Day [...] have Coronavirus / COVID-19? No / Unsure 10/29/2020 9:28 AM EDT documented as of this encounter Plan of Treatment Upcoming Encounters Date Type Department Care Team (Late st Contact Info) Description 03/25/2024 8:00 AM EST Office Visit Obstetrics & Gynecology [address] [place] [address] Felice Camacho MD [address] [place] [address] 04/05/2024 9:00 AM EST Clinical Support Obstetrics & Gynecology [address] [place] [address] 05/03/2024 9:00 AM EST Clinical Support Obstetrics & Gynecology [address] [place] [address] 05/31/2024 9:00 AM EST Clinical Support Obstetrics & Gynecology [address] [place] [address] 06/28/2024 9:00 AM EST Clinical Support Obstetrics & Gynecology [facility] [place] [address] documented as of this encounter Visit Diagnoses Not on filedocumented in this encounter Care Teams Spudder Relationship Specialty Start Date End Date Corina Spence APRN [facility] [place] [address] PCP - General 09/11/20 documented as of this encounter
--- OUTSIDE RECORDS SUMMARY | 2024-03-13 16:30 | XMS_ITS | Encounter Summary ---
Author Organization [facility] Address [address] [place] [address] Care Team Providers Care Hand I Thermal Cutter Name Role Phone Corina Spence APRN Primary Care Provider +1- [phone] Encounter Details Date Type Department Care Team (Late st Contact Info) Description 10/29/2020 Abstract [facility] [address] [place] [address] [place] [address] Normal , incidental (Primary Dx) Social History Tobacco Use Types [...] EST Office Visit Obstetrics & Gynecology [address] [place] [address] Felice Camacho MD [address] [place] [address] 04/05/2024 9:00 AM EST Clinical Support Obstetrics & Gynecology [address] [place] [address] 05/03/2024 9:00 AM EST Clinical Support Obstetrics & Gynecology [address] [place] [address] 05/31/2024 9:00 AM EST Clinical Support Obstetrics & Gynecology [address] [place] [address] 06/28/2024 9:00 AM EST Clinical Support Obstetrics & Gynecology [address] [place] [address] documented as of this encounter Visit Diagnoses Diagnosis Normal , incidental- Primary documented in this encounter Care Teams Hand I Thermal Cutter Relationship Specialty Start Date End Date Corina Spence APRN [facility] [place] [id number] PCP - General 09/11/20 documented as of this encounter
--- OUTSIDE RECORDS SUMMARY | 2024-03-13 16:30 | XMS_ITS | Encounter Summary ---
Author Organization Healthcare Address [address] [place] [address] Care Team Providers Care Cushion Stuffer Name Role Phone Unavailable Primary Care Provider Unavailabl e Encounter Details Date Type Department Care Team (Late st Contact Info) Description 04/19/2016 Legacy AEHR Vitals Encounter [facility] [address] [place] [address] Provider, MD Pradip [address] [place] [address] Social History Tobacco Use Types Packs/Day [...] - Inhaled Oxygen Concentration - - Weight 53.1 kg (117 lb) 04/19/2016 10:07 AM EST Height - - Body Mass Index 18.32 05/27/2015 9:11 AM EST documented in this encounter Plan of Treatment Upcoming Encounters Date Type Department Care Team (Late st Contact Info) Description 03/25/2024 8:00 AM EST Office Visit Obstetrics & Gynecology [address] [place] [address] Felice Camacho MD [address] [place] [address] 04/05/2024 9:00 AM EST Clinical Support Obstetrics & Gynecology [address] [place] [address] 05/03/2024 9:00 AM EST Clinical Support Obstetrics & Gynecology [address] [place] [address] 05/31/2024 9:00 AM EST Clinical Support Obstetrics & Gynecology [address] [place] [address] 06/28/2024 9:00 AM EST Clinical Support Obstetrics & Gynecology [address] [place] [address] documented as of this encounter Visit Diagnoses Not on filedocumented in this encounter
--- OUTSIDE RECORDS SUMMARY | 2024-03-13 16:30 | XMS_ITS | Encounter Summary ---
Author Organization [facility] Address [address] [place] [address] Care Team Providers Care Boat Painter Name Role Phone Corina Spence APRN Primary Care Provider +1- [phone] Unavailable [phone] Encounter Details Date Type Department Care Team (Late st Contact Info) Description 10/28/2020 Telephone Obstetrics & Gynecology [address] [place] [address] Lisa Cole APRN, CNM [address] [place] [address] Social History Tobacco Use Types Packs/Day Years Used Date Smoking Tobacco: Never George West Depression Scale Answer Date Recorded George West Depression Scale Total 0 02/18/2021 The thought [...] EST Office Visit Obstetrics & Gynecology [address] [place] [address] Felice Camacho MD [address] [place] [address] 04/05/2024 9:00 AM EST Clinical Support Obstetrics & Gynecology [address] [place] [address] 05/03/2024 9:00 AM EST Clinical Support Obstetrics & Gynecology [address] [place] [address] 05/31/2024 9:00 AM EST Clinical Support Obstetrics & Gynecology [address] [place] [address] 06/28/2024 9:00 AM EST Clinical Support Obstetrics & Gynecology [address] [place] [address] documented as of this encounter Visit Diagnoses Not on filedocumented in this encounter Care Teams Boat Painter Relationship Specialty Start Date End Date Corina Spence APRN [address] [place] [address] PCP - General 09/11/[address] [address] Actuarial Intern Dietitian 11/24/20 01/11/24 documented as of this encounter
--- OUTSIDE RECORDS SUMMARY | 2024-03-13 16:30 | XMS_ITS | Encounter Summary ---
Author Organization Healthcare Address [address] [place] [address] Care Team Providers Care Conveyor Installer Name Role Phone Unavailable Primary Care Provider Unavailabl e Encounter Details Date Type Department Care Team (Late st Contact Info) Description 07/26/2016 Legacy AEHR Vitals Encounter [facility] [address] [place] [address] Provider, MD Pradip [address] [place] [address] Social History Tobacco Use Types Packs/Day [...] - - Weight 53.1 kg (117 lb) 07/26/2016 9:23 AM EDT Height - - Body Mass Index 18.32 05/27/2015 9:11 AM EST documented in this encounter Plan of Treatment Upcoming Encounters Date Type Department Care Team (Late st Contact Info) Description 03/25/2024 8:00 AM EST Office Visit Obstetrics & Gynecology [address] [place] [address] Felice Camacho MD [address] [place] [address] 04/05/2024 9:00 AM EST Clinical Support Obstetrics & Gynecology [address] [place] [address] 05/03/2024 9:00 AM EST Clinical Support Obstetrics & Gynecology [address] [place] [address] 05/31/2024 9:00 AM EST Clinical Support Obstetrics & Gynecology [address] [place] [address] 06/28/2024 9:00 AM EST Clinical Support Obstetrics & Gynecology [address] [place] [address] documented as of this encounter Visit Diagnoses Not on filedocumented in this encounter
--- OUTSIDE RECORDS SUMMARY | 2024-03-13 16:30 | XMS_ITS | Encounter Summary ---
Author Organization Healthcare Address [address] [place] [address] Care Team Providers Care Marketing Support Assistant Name Role Phone Corina Spence APRN Primary Care Provider [phone]- [phone] Encounter Details Date Type Department Care Team (Late st Contact Info) Description 10/21/2020 Abstract [facility] [address] [place] [address] Felice Camacho MD [address] [place] [address] Social History Tobacco Use Types [...] EST Office Visit Obstetrics & Gynecology [address] [place] [address] Felice Camacho MD [address] [place] [address] 04/05/2024 9:00 AM EST Clinical Support Obstetrics & Gynecology [address] [place] [address] 05/03/2024 9:00 AM EST Clinical Support Obstetrics & Gynecology [address] [place] [address] 05/31/2024 9:00 AM EST Clinical Support Obstetrics & Gynecology [address] [place] [address] 06/28/2024 9:00 AM EST Clinical Support Obstetrics & Gynecology [facility] [place] [address] documented as of this encounter Visit Diagnoses Not on filedocumented in this encounter Care Teams Marketing Support Assistant Relationship Specialty Start Date End Date Corina Spence, COMMERCIAL ART INSTRUCTOR [facility]0 [place] [id number] PCP - General 09/11/20 documented as of this encounter
--- OUTSIDE RECORDS SUMMARY | 2024-03-13 16:30 | XMS_ITS | Encounter Summary ---
Author Organization Healthcare Address [address] [place] [address] Care Team Providers Care Bilingual Teacher Aide Name Role Phone Unavailable Primary Care Provider Unavailabl e Encounter Details Date Type Department Care Team (Late st Contact Info) Description 06/14/2016 Legacy AEHR Vitals Encounter [facility] [address] [place] [address] Provider, MD Pradip [address] [place] [address] Social History Tobacco Use Types Packs/Day [...] - Inhaled Oxygen Concentration - - Weight 55.4 kg (122 lb 2.2 oz) 06/14/2016 10:07 AM EST Height - - Body Mass Index 19.13 05/27/2015 9:11 AM EST documented in this encounter Plan of Treatment Upcoming Encounters Date Type Department Care Team (Late st Contact Info) Description 03/25/2024 8:00 AM EST Office Visit Obstetrics & Gynecology [address] [place] [address] Felice Camacho MD [address] [place] [address] 04/05/2024 9:00 AM EST Clinical Support Obstetrics & Gynecology [address] [place] [address] 05/03/2024 9:00 AM EST Clinical Support Obstetrics & Gynecology [address] [place] [address] 05/31/2024 9:00 AM EST Clinical Support Obstetrics & Gynecology [address] [place] [address] 06/28/2024 9:00 AM EST Clinical Support Obstetrics & Gynecology [address] [place] [address] documented as of this encounter Visit Diagnoses Not on filedocumented in this encounter
--- OUTSIDE RECORDS SUMMARY | 2024-03-13 16:30 | XMS_ITS ---
Author Organization [facility] Address [address] [place] [address] Care Team Providers Care Dielectric Tester Name Role Phone Corina Spence APRN Primary Care Provider [phone]- [phone] [facility] - Diabetes Self-Management Education (DSME) Status:Closed (Closed) Start date:11/24/2020 Enrollment date:11/24/2020 Enrollment reason:Referred by provider End date:01/11/2024 Close reason:Patient graduated Continued Care and Services Coordination
--- OUTSIDE RECORDS SUMMARY | 2024-03-13 16:30 | XMS_ITS | Encounter Summary ---
Author Organization [facility] Address [address] [place] [address] Care Team Providers Care Table Machine Operator Name Role Phone Corina Spence APRN Primary Care Provider [phone]- [phone] Encounter Details Date Type Department Care Team (Late st Contact Info) Description 10/04/2020 Abstract [facility] [address] [place] [address] Dental, Provider, DDS [address] [place] [address] Social History Tobacco Use Types Packs/Day Years Used Date Smoking Tobacco: Never Comments Unknown Sex and Gender Information Value [...] EST Office Visit Obstetrics & Gynecology [address] [place] [address] Felice Camacho MD [address] [place] [address] 04/05/2024 9:00 AM EST Clinical Support Obstetrics & Gynecology [address] [place] [address] 05/03/2024 9:00 AM EST Clinical Support Obstetrics & Gynecology [address] [facility] [place] [address] 05/31/2024 9:00 AM EST Clinical Support Obstetrics & Gynecology [address] [place] [address] 06/28/2024 9:00 AM EST Clinical Support Obstetrics & Gynecology [address] [place] [address] documented as of this encounter Procedures Procedure Name Priority Date/Time Associated Diagnosis Comments INTERIM PARTIAL 1-3 TEETH DENTURE - MAX Routine 02/16/2017 12:00 AM EDT COMPREHENSIVE ORAL EVALUATION - NEW OR ESTABLISHED PATIENT IN PROCESS A Routine 01/03/2017 12:00 AM EDT ADULT SCREENING Routine 11/30/2016 12:00 AM EDT INTRAORAL - COMPLETE SERIES OF RADIOGRAPHIC IMAGES Routine 11/30/2016 12:00 AM EDT documented in this encounter Visit Diagnoses Not on filedocumented in this encounter Care Teams Table Machine Operator Relationship Specialty Start Date End Date Corina Spence APRN [facility] [place] [id number] PCP - General 09/11/20 documented as of this encounter
--- OUTSIDE RECORDS SUMMARY | 2024-03-13 16:30 | XMS_ITS | Encounter Summary ---
Author Organization Healthcare Address [address] [place] [address] Care Team Providers Care Radio Recorder Name Role Phone Unavailable Primary Care Provider Unavailabl e Encounter Details Date Type Department Care Team (Late st Contact Info) Description 06/17/2015 [facility] Vitals Encounter [facility] [address] [place] [address] Provider, MD Pradip [address] [place] [address] Social History Tobacco Use Types Packs/Day [...] - Inhaled Oxygen Concentration - - Weight 59.5 kg (131 lb 3.1 oz) 06/17/2015 1:35 P M EST Height - - Body Mass Index 20.55 05/27/2015 9:11 AM EST documented in this encounter Plan of Treatment Upcoming Encounters Date Type Department Care Team (Late st Contact Info) Description 03/25/2024 8:00 AM EST Office Visit Obstetrics & Gynecology [address] [place] [address] Felice Camacho MD [address] [place] [address] 04/05/2024 9:00 AM EST Clinical Support Obstetrics & Gynecology [address] [place] [address] 05/03/2024 9:00 AM EST Clinical Support Obstetrics & Gynecology [address] [place] [address] 05/31/2024 9:00 AM EST Clinical Support Obstetrics & Gynecology [address] [place] [address] 06/28/2024 9:00 AM EST Clinical Support Obstetrics & Gynecology [address] [place] [address] documented as of this encounter Visit Diagnoses Not on filedocumented in this encounter
--- OUTSIDE RECORDS SUMMARY | 2024-03-13 16:30 | XMS_ITS | Encounter Summary ---
Author Organization Healthcare Address [address] [place] [address] Care Team Providers Care Dairy Husbandry Worker Name Role Phone Unavailable Primary Care Provider Unavailabl e Encounter Details Date Type Department Care Team (Late st Contact Info) Description 03/23/2016 [facility] AEHR Vitals Encounter [facility] [address] [place] [address] Provider, MD Pradip [address] [place] [address] Social History Tobacco Use Types Packs/Day [...] Weight 54 kg (119 lb 0.1 oz) 03/23/2016 3:34 PM EST Height - - Body Mass Index 18.64 05/27/2015 9:11 AM EST documented in this encounter Plan of Treatment Upcoming Encounters Date Type Department Care Team (Late st Contact Info) Description 03/25/2024 8:00 AM EST Office Visit Obstetrics & Gynecology [address] [place] [address] Felice Camacho MD [address] [place] [address] 04/05/2024 9:00 AM EST Clinical Support Obstetrics & Gynecology [address] [place] [address] 05/03/2024 9:00 AM EST Clinical Support Obstetrics & Gynecology [address] [place] [address] 05/31/2024 9:00 AM EST Clinical Support Obstetrics & Gynecology [address] [place] [address] 06/28/2024 9:00 AM EST Clinical Support Obstetrics & Gynecology [address] [place] [address] documented as of this encounter Visit Diagnoses Not on filedocumented in this encounter
--- OUTSIDE RECORDS SUMMARY | 2024-03-13 16:30 | XMS_ITS | Encounter Summary ---
Author Organization Healthcare Address [address] [place] [address] Care Team Providers Care Spice Fumigator Name Role Phone Unavailable Primary Care Provider Unavailabl e Encounter Details Date Type Department Care Team (Late st Contact Info) Description 03/01/2016 [facility] AEHR Vitals Encounter [facility] [address] [place] [address] Provider, MD Pradip [address] [place] [address] Social History Tobacco Use Types Packs/Day [...] - - Weight 54.2 kg (119 lb 6.1 oz) 03/01/2016 8:39 A M EDT Height - - Body Mass Index 18.7 05/27/2015 9:11 AM EST documented in this encounter Plan of Treatment Upcoming Encounters Date Type Department Care Team (Late st Contact Info) Description 03/25/2024 8:00 AM EST Office Visit Obstetrics & Gynecology [address] [place] [address] Felice Camacho MD [address] [place] [address] 04/05/2024 9:00 AM EST Clinical Support Obstetrics & Gynecology [address] [place] [address] 05/03/2024 9:00 AM EST Clinical Support Obstetrics & Gynecology [address] [place] [address] 05/31/2024 9:00 AM EST Clinical Support Obstetrics & Gynecology [address] [place] [address] 06/28/2024 9:00 AM EST Clinical Support Obstetrics & Gynecology [address] [place] [address] documented as of this encounter Visit Diagnoses Not on filedocumented in this encounter
--- OUTSIDE RECORDS SUMMARY | 2024-03-13 16:30 | XMS_ITS | Encounter Summary ---
Author Organization Healthcare Address [address] [place] [address] Care Team Providers Care Apparatus Engineering Technologist Name Role Phone Unavailable Primary Care Provider Unavailabl e Encounter Details Date Type Department Care Team (Late st Contact Info) Description 09/02/2015 [facility] AEHR Vitals Encounter [facility] [address] [place] [address] Provider, MD Pardip [address] [place] [address] Social History Tobacco Use Types Packs/Day [...] - Inhaled Oxygen Concentration - - Weight 63.1 kg (139 lb 3.2 oz) 09/02/2015 1:29 P M EDT Height - - Body Mass Index 21.8 05/27/2015 9:11 AM EST documented in this encounter Plan of Treatment Upcoming Encounters Date Type Department Care Team (Late st Contact Info) Description 03/25/2024 8:00 AM EST Office Visit Obstetrics & Gynecology [address] [place] [address] Felice Camacho MD [address] [place] [address] 04/05/2024 9:00 AM EST Clinical Support Obstetrics & Gynecology [address] [place] [address] 05/03/2024 9:00 AM EST Clinical Support Obstetrics & Gynecology [address] [place] [address] 05/31/2024 9:00 AM EST Clinical Support Obstetrics & Gynecology [address] [place] [address] 06/28/2024 9:00 AM EST Clinical Support Obstetrics & Gynecology [address] [place] [address] documented as of this encounter Visit Diagnoses Not on filedocumented in this encounter
--- OUTSIDE RECORDS SUMMARY | 2024-03-13 16:30 | XMS_ITS | Encounter Summary ---
Author Organization [facility] Address [address] [place] [address] Care Team Providers Care Foam Rubber Molder Name Role Phone Corina Spence APRN Primary Care Provider [phone]- [phone] Encounter Details Date Type Department Care Team (Latest Contact Info) Description 11/09/2020 1:15 PM EDT Clinical Support Family and Community Medicine [address] [place] [address] Normal , incidental Social History Tobacco Use [...] as of this encounter Miscellaneous Notes * Result Encounter Note - Lesa Henley MA - 11/09/2020 1:15 PM EDT Ashish Thurston, I called and lm for patient, but can you get her set up documented in this encounter Plan of Treatment Upcoming Encounters Date Type Department Care Team (Late st Contact Info) Description 03/25/2024 8:00 AM EST Office Visit Obstetrics & Gynecology [address] [place] [address] Felice Camacho MD [address] [place] [address] 04/05/2024 9:00 AM EST Clinical Support Obstetrics & Gynecology [address] [address] 05/03/2024 9:00 AM EST Clinical Support Obstetrics & Gynecology [address] [place] [address] 05/31/2024 9:00 AM EST Clinical Support Obstetrics & Gynecology [address] [address] 06/28/2024 9:00 AM EST Clinical Support Obstetrics & Gynecology [address] [place] [address] documented as of this encounter Procedures Procedure Name Priority Date/Time Associated Diagnosis Comments GTT 3 HOUR Routine 11/09/2020 11:14 AM EDT Normal , incidental GTT 2 HOUR Routine 11/09/2020 10:14 AM EDT Normal , incidental GTT 1 HOUR Routine 11/09/2020 9:15 AM EDT Normal , incidental GTT, FASTING Routine 11/09/2020 8:11 AM EDT Normal , incidental GLUCOSE TOLERANCE CONFIRMATION, 3 HOUR, OB, PLASMA Routine 11/09/2020 8:11 AM EDT Normal , incidental documented in this encounter Results * GTT 3 Hour (11/09/2020 11:14 AM EDT) GTT - 3 Hour 138 74 - 139 mg/dL 11/09/2020 1:58 PM EDT [facility] Blood Venous blood specimen / Unknown Venipuncture / Unknown 11/09/2020 11:14 AM EDT 11/09/2020 11:14 AM EDT Narrative [facility]ARE [facility] - 11/09/2020 1:58 PM EDT At least 2 of the 4 values must be abnormal for the diagnosis of gestational diabetes. Result Shola Camacho MD LAB BLOOD ORDERABLES Final Resu lt Performing Organization Address City/[facility]/ZIP Co de Phone Number [facility] [address] [place] [address] * (ABNORMAL) GTT 2 Hour (11/09/2020 10:14 AM EDT) GTT - 2 Hour 165(H) 74 - 154 mg/dL 11/09/2020 2:08 PM EDT [facility] Blood Venous blood specimen / Unknown Venipuncture / Unknown 11/09/2020 10:14 AM EDT 11/09/2020 10:14 AM EDT Narrative [facility] - 11/09/2020 2:08 PM EDT Plasma glucose concentrations measured 2 hours after a 75g glucose load of >=200 mg/dL are diagnostic for Diabetes Mellitus. Result Shola Camacho MD LAB BLOOD ORDERABLES Final Resu lt Performing Organization Address [facility] Co de Phone Number [facility] [address] [place] [address] * (ABNORMAL) GTT 1 Hour (11/09/2020 9:15 AM EDT) Pathologist [facility] GTT - 1 Hour 207(H) 74 - 179 mg/dL 11/09/2020 1:58 PM EDT [facility] Blood Venous blood specimen / Unknown Venipuncture / Unknown 11/09/2020 9:15 AM EDT 11/09/2020 9:15 AM EDT Result Shola Camacho MD LAB BLOOD ORDERABLES Final Resu lt Performing Organization Address City/[facility]/ZIP Co de Phone Number [facility] [address] [place] [address] * GTT, Fasting (11/09/2020 8:11 AM EDT) GTT - Fasting 92 74 - 94 mg/dL 11/09/2020 2:04 PM EDT [facility] Blood Venous blood specimen / Unknown Venipuncture / Unknown 11/09/2020 8:11 AM EDT 11/09/2020 8:11 AM EDT us Felice Camacho MD LAB BLOOD ORDERABLES Final Resu lt [facility] [address] [place] [address] documented in this encounter Visit Diagnoses Diagnosis Normal , incidental documented in this encounter Care Teams Foam Rubber Molder Relationship Specialty Start Date End Date Corina Spence APRN [address] [place] [address] PCP - General 09/11/20 documented as of this encounter
--- OUTSIDE RECORDS SUMMARY | 2024-03-13 16:30 | XMS_ITS | Encounter Summary ---
Author Organization Healthcare Address [address] [place] [address] Care Team Providers Care Route Manager Name Role Phone Unavailable Primary Care Provider Unavailabl e Encounter Details Date Type Department Care Team (Late st Contact Info) Description 05/18/2016 [facility] AEHR Vitals Encounter [facility] [address] [place] [address] Provider, MD Pradip [address] [place] [address] Social History Tobacco Use Types Packs/Day [...] - Inhaled Oxygen Concentration - - Weight 54.4 kg (119 lb 15.9 oz) 017 11:01 AM EST Height - - Body Mass Index 18.79 05/27/2015 9:11 AM EST documented in this encounter Plan of Treatment Upcoming Encounters Date Type Department Care Team (Late st Contact Info) Description 03/25/2024 8:00 AM EST Office Visit Obstetrics & Gynecology [address] [place] [address] Felice Camacho MD [address] [place] [address] 04/05/2024 9:00 AM EST Clinical Support Obstetrics & Gynecology [address] [place] [address] 05/03/2024 9:00 AM EST Clinical Support Obstetrics & Gynecology [address] [place] [address] 05/31/2024 9:00 AM EST Clinical Support Obstetrics & Gynecology [address] [place] [address] 06/28/2024 9:00 AM EST Clinical Support Obstetrics & Gynecology [address] [place] [address] documented as of this encounter Visit Diagnoses Not on filedocumented in this encounter
--- OUTSIDE RECORDS SUMMARY | 2024-03-13 16:30 | XMS_ITS | Encounter Summary ---
Author Organization Healthcare Address [address] [place] [address] Care Team Providers Care Patient Case Manager Name Role Phone Corina Spence APRN Primary Care Provider +1- [phone] Reason for Visit * Reason Comments Routine Visit isabel wood at 10:05 Encounter Details Date Type Department Care Team (Late st Contact Info) Description 10/29/2020 9:30 AM EDT Routine Obstetrics & Gynecology [address] [place] [address] Felice Camacho MD [address] [place] [address] Normal , incidental (Primary Dx) Social History [...] Sign Reading Time Taken Comments Blood Pressure 118/78 10/29/2020 9:40 AM EDT Pulse - - Temperature - - Respiratory Rate - - Oxygen Saturation - - Inhaled Oxygen Concentration - - Weight 68.1 kg (150 lb 2.1 oz) 10/29/2020 9:40 A M EDT Height - - Body Mass Index 23.51 09/30/2020 11:29 AM EDT documented in this encounter Miscellaneous Notes * Progress Notes - Felice Camacho MD - 10/29/2020 9:30 AM EDT Subjective Chief Complaint Patient presents with ??? Routine Visit gluccosme today, due at 10:05 Byron Smith is a 24 y.o. at 25w1d with a working estimated date of delivery of 02/10/2021, by Last Menstrual Period who presents for a routine visit. She denies vaginal bleeding, leakage of fluid, or decreased movements. Is having some BH contractions. Her is complicated by: H/O PTB x 2 at 36 weeks The following portions of the chart were reviewed this encounter and updated as appropriate: ALL Objective Physical Exam Weight: 68.1 kg (150 lb 2.1 oz) Expected Total Weight Gain: Could not be calculated Pregravid BMI: Could not be calculated BP: 118/78 Heart Rate: 135 Fundal Height (cm): 25 cm Labs Urine dip: neg/neg HGB (g/dL) Date/Time Value 06/17/2020 1043 13.7^ HCT (%) Date/Time Value 06/17/2020 1043 42.1^ ABO/Rh (no units) Date/Time Value 06/17/2020 1043 A POSITIVE Antibody Screen (no units) Date/Time Value 06/17/2020 1043 NEGATIVE Hepatitis B Surf Antigen (no units) Date/Time Value 06/17/2020 1043 NEGATIVE Reference Value: Negative MIGUEL-A (no units) Date/Time Value 08/03/2020 1354 See patient's chart for results. Test (no units) Date/Time Value 08/03/2020 1354 See patient's chart for results. No results found for: GLUF, GLUT1, [id number], [id number] Assessment/Plan Diagnoses and all orders for this visit: Normal , incidental - Glucose Challenge - OB Screen - CBC - Urine dip Continue vitamin. GTT done today Follow up in 4 weeks for a routine visit & Tdap. HYDRATE! documented in this encounter Plan of Treatment Upcoming Encounters Date Type Department Care Team (Late st Contact Info) Description 03/25/2024 8:00 AM EST Office Visit Obstetrics & Gynecology [address] [place] [address] Felice Camacho MD [address] [place] [address] 04/05/2024 9:00 AM EST Clinical Support Obstetrics & Gynecology [address] [place] [address] 05/03/2024 9:00 AM EST Clinical Support Obstetrics & Gynecology [address] [place] [address] 05/31/2024 9:00 AM EST Clinical Support Obstetrics & Gynecology [address] [place] [address] 06/28/2024 9:00 AM EST Clinical Support Obstetrics & Gynecology [address] [place] [address] documented as of this encounter Procedures Procedure Name Priority Date/Time Associated Diagnosis Comments GLUCOSE CHALLENGE - OB SCREEN Routine 10/29/2020 10:27 AM EDT Normal , incidental CBC W/O DIFFERENTIAL Routine 10/29/2020 10:27 AM EDT Normal , incidental POCT URINALYSIS DIPSTICK Routine 10/29/2020 9:48 AM EDT Normal , incidental documented in this encounter Results * (ABNORMAL) CBC (10/29/2020 10:27 AM EDT) WBC Count 11.59(H) 3.70 - 10.30 10*3/uL LAB HEMATOLOGY METHOD 10/29/2020 1:12 PM EDT [facility] RBC Count 3.80(L) 3.90 - 5.20 10*6/uL LAB HEMATOLOGY METHOD 10/29/2020 1:12 PM EDT [facility] HGB 11.6 11.2 - 15.7 g/dL LAB HEMATOLOGY METHOD 10/29/2020 1:12 PM EDT [facility] HCT 35.1 34.0 - 45.0 % LAB HEMATOLOGY METHOD 10/29/2020 1:12 PM EDT [facility] Platelet Count 200 155 - 369 10*3/uL LAB HEMATOLOGY METHOD 10/29/2020 1:12 PM EDT [facility] MCV 92 79 - 98 fL LAB HEMATOLOGY METHOD 10/29/2020 1:12 PM EDT [facility] MCH 30.5 26.0 - 32.0 pg LAB HEMATOLOGY METHOD 10/29/2020 1:12 PM EDT [facility] MCHC 33.0 30.7 - 35.5 g/dL LAB HEMATOLOGY METHOD 10/29/2020 1:12 PM EDT [facility] RDW 12.7 11.5 - 14.5 % LAB HEMATOLOGY METHOD 10/29/2020 1:12 PM EDT [facility] MPV 11.7 8.8 - 12.5 fL LAB HEMATOLOGY METHOD 10/29/2020 1:12 PM EDT [facility] nRBC 0.0 <=0.0 per 100 WBCs LAB HEMATOLOGY METHOD 10/29/2020 1:12 PM EDT [facility] Blood Capillary blood specimen / Unknown Capillary / Unknown 10/29/2020 10:27 AM EDT 10/29/2020 12:52 PM EDT us Felice Camacho MD LAB BLOOD ORDERABLES Final Resu lt [facility] [address] [place] [address] * (ABNORMAL) Glucose Challenge - OB Screen (10/29/2020 10:27 AM EDT) [facility] Signature Glucose OB Screen - 1 Hour 146(H) 74 - 139 mg/dL 10/29/2020 1:16 PM EDT [facility] Blood Capillary blood specimen / Unknown Capillary / Unknown 10/29/2020 10:27 AM EDT 10/29/2020 12:51 PM EDT Narrative HEALTHCARE LAB - 10/29/2020 1:16 PM EDT If plasma glucose concentration measured 1 hour after 50g glucose load is >= 140 mg/L, proceed to [id number], Glucose Tolerance Confirmation 3 Hour Test. Result Shola Camacho MD LAB BLOOD ORDERABLES Final Resu lt [facility] [address] [place] [address] * Urine dip (10/29/2020 9:48 AM EDT) POCT Urine Color Yellow POCT Urine Clarity Cloudy POCT Glucose Urine neg Negative mg/dL POCT Bilirubin, Urine neg Negative POCT Ketones, Urine neg Negative mg/dL POCT Specific [place], Urine 1.20 <=1.005 to >=1.030 POCT Blood, Urine neg Negative POCT pH, Urine 8.5 4.8 - 8.0 POCT Protein, Urine neg mg/dL POCT Urobilinogen, Urine 1.0 0.2 E.U./dL POCT Nitrite, Urine Negative Negative POCT Leukocyte Esterase, Urine Negative Negative Urine Urine specimen obtained by clean catch procedure / Unknown 10/29/2020 9:48 AM EDT Result Shola Camacho MD POINT OF CARE TEST ENTER/EDIT O RDERABLES Final Result documented in this encounter Visit Diagnoses Diagnosis Normal , incidental- Primary documented in this encounter Care Teams Patient Case Manager Relationship Specialty Start Date End Date Corina Spence APRN [address] [place] [address] PCP - General 09/11/20 documented as of this encounter
--- OUTSIDE RECORDS SUMMARY | 2024-03-13 16:30 | XMS_ITS | Encounter Summary ---
Author Organization Healthcare Address [address] [place] [address] Care Team Providers Care Gasoline Catalyst Operator Name Role Phone Unavailable Primary Care Provider Unavailabl e Encounter Details Date Type Department Care Team (Late st Contact Info) Description 02/16/2016 [facility] AEHR Vitals Encounter [facility] [address] [place] [address] Provider, MD Pradip [address] [place] [address] Social History Tobacco Use Types Packs/Day [...] - Inhaled Oxygen Concentration - - Weight 52.8 kg (116 lb 7.9 oz) 02/16/2016 11:07 AM EDT Height - - Body Mass Index 18.25 05/27/2015 9:11 AM EST documented in this encounter Plan of Treatment Upcoming Encounters Date Type Department Care Team (Late st Contact Info) Description 03/25/2024 8:00 AM EST Office Visit Obstetrics & Gynecology [address] [place] [address] Felice Camacho MD [address] [place] [address] 04/05/2024 9:00 AM EST Clinical Support Obstetrics & Gynecology [address] [place] [address] 05/03/2024 9:00 AM EST Clinical Support Obstetrics & Gynecology [address] [place] [address] 05/31/2024 9:00 AM EST Clinical Support Obstetrics & Gynecology [address] [place] [address] 06/28/2024 9:00 AM EST Clinical Support Obstetrics & Gynecology [address] [place] [address] documented as of this encounter Visit Diagnoses Not on filedocumented in this encounter
--- OUTSIDE RECORDS SUMMARY | 2024-03-13 16:30 | XMS_ITS | Encounter Summary ---
Author Organization Healthcare Address [address] [place] [address] Care Team Providers Care Whiskey Filterer Name Role Phone Unavailable Primary Care Provider Unavailabl e Encounter Details Date Type Department Care Team (Late st Contact Info) Description 08/05/2015 [facility] AEHR Vitals Encounter [facility] [address] [place] [address] Provider, MD Pradip [address] [place] [address] Social History Tobacco Use Types Packs/Day [...] - Inhaled Oxygen Concentration - - Weight 61.5 kg (135 lb 9.7 oz) 08/05/2015 1:39 P M EDT Height - - Body Mass Index 21.24 05/27/2015 9:11 AM EST documented in this encounter Plan of Treatment Upcoming Encounters Date Type Department Care Team (Late st Contact Info) Description 03/25/2024 8:00 AM EST Office Visit Obstetrics & Gynecology [address] [place] [address] Felice Camacho MD [address] [place] [address] 04/05/2024 9:00 AM EST Clinical Support Obstetrics & Gynecology [address] [place] [address] 05/03/2024 9:00 AM EST Clinical Support Obstetrics & Gynecology [address] [place] [address] 05/31/2024 9:00 AM EST Clinical Support Obstetrics & Gynecology [address] [place] [address] 06/28/2024 9:00 AM EST Clinical Support Obstetrics & Gynecology [address] [place] [address] documented as of this encounter Visit Diagnoses Not on filedocumented in this encounter
--- OUTSIDE RECORDS SUMMARY | 2024-03-13 16:30 | XMS_ITS | Encounter Summary ---
Author Organization Healthcare Address [address] [place] [address] Care Team Providers Care Classroom Aide Name Role Phone Unavailable Primary Care Provider Unavailabl e Encounter Details Date Type Department Care Team (Late st Contact Info) Description 12/29/2015 [facility] AEHR Vitals Encounter [facility] [address] [place] [address] Provider, MD Pradip [address] [place] [address] Social History Tobacco Use Types Packs/Day [...] Weight 54 kg (119 lb 0.1 oz) 12/29/2015 11:33 AM EDT Height - - Body Mass Index 18.64 05/27/2015 9:11 AM EST documented in this encounter Plan of Treatment Upcoming Encounters Date Type Department Care Team (Late st Contact Info) Description 03/25/2024 8:00 AM EST Office Visit Obstetrics & Gynecology [address] [place] [address] Felice Camacho MD [address] [place] [address] 04/05/2024 9:00 AM EST Clinical Support Obstetrics & Gynecology [address] [place] [address] 05/03/2024 9:00 AM EST Clinical Support Obstetrics & Gynecology [address] [place] [address] 05/31/2024 9:00 AM EST Clinical Support Obstetrics & Gynecology [address] [place] [address] 06/28/2024 9:00 AM EST Clinical Support Obstetrics & Gynecology [address] [place] [address] documented as of this encounter Visit Diagnoses Not on filedocumented in this encounter
--- OUTSIDE RECORDS SUMMARY | 2024-03-13 16:30 | XMS_ITS | Encounter Summary ---
Author Organization Healthcare Address [address] [place] [address] Care Team Providers Care Rv Servicer Name Role Phone Unavailable Primary Care Provider Unavailabl e Encounter Details Date Type Department Care Team (Late st Contact Info) Description 11/08/2016 [facility] Vitals Encounter [facility] [address] [place] [address] Provider, MD Pradip [address] [place] [address] Social History Tobacco Use Types Packs/Day [...] Weight 54.4 kg (119 lb 15.9 oz) 11/08/2016 9:18 AM EDT Height 170.2 cm (5' 7 ) 11/08/2016 9:18 AM EDT Body Mass Index 18.79 11/08/2016 9:18 AM EDT documented in this encounter Plan of Treatment Upcoming Encounters Date Type Department Care Team (Late st Contact Info) Description 03/25/2024 8:00 AM EST Office Visit Obstetrics & Gynecology [address] [place] [address] Felice Camacho MD [address] [place] [address] 04/05/2024 9:00 AM EST Clinical Support Obstetrics & Gynecology [address] [place] [address] 05/03/2024 9:00 AM EST Clinical Support Obstetrics & Gynecology [facility] [place] [address] 05/31/2024 9:00 AM EST Clinical Support Obstetrics & Gynecology [facility] [place] [address] 06/28/2024 9:00 AM EST Clinical Support Obstetrics & Gynecology [facility] [place] [address] documented as of this encounter Visit Diagnoses Not on filedocumented in this encounter
--- OUTSIDE RECORDS SUMMARY | 2024-03-13 16:30 | XMS_ITS | Encounter Summary ---
Author Organization Healthcare Address [address] [place] [address] Care Team Providers Care Manager Mental Health Name Role Phone Unavailable Primary Care Provider Unavailabl e Encounter Details Date Type Department Care Team (Late st Contact Info) Description 12/08/2015 [facility] AEHR Vitals Encounter [facility] [address] [place] [address] Provider, MD Pradip [address] [place] [address] Social History Tobacco Use Types Packs/Day [...] - Inhaled Oxygen Concentration - - Weight 53.5 kg (117 lb 15.8 oz) 016 11:53 AM EDT Height - - Body Mass Index 18.48 05/27/2015 9:11 AM EST documented in this encounter Plan of Treatment Upcoming Encounters Date Type Department Care Team (Late st Contact Info) Description 03/25/2024 8:00 AM EST Office Visit Obstetrics & Gynecology [address] [place] [address] Felice Camacho MD [address] [place] [address] 04/05/2024 9:00 AM EST Clinical Support Obstetrics & Gynecology [address] [place] [address] 05/03/2024 9:00 AM EST Clinical Support Obstetrics & Gynecology [address] [place] [address] 05/31/2024 9:00 AM EST Clinical Support Obstetrics & Gynecology [address] [place] [address] 06/28/2024 9:00 AM EST Clinical Support Obstetrics & Gynecology [address] [place] [address] documented as of this encounter Visit Diagnoses Not on filedocumented in this encounter
--- OUTSIDE RECORDS SUMMARY | 2024-03-13 16:30 | XMS_ITS | Encounter Summary ---
Author Organization Healthcare Address [address] [place] [address] Care Team Providers Care Sales Performance Analyst Name Role Phone Unavailable Primary Care Provider Unavailabl e Encounter Details Date Type Department Care Team (Late st Contact Info) Description 06/24/2015 [facility] AEHR Vitals En[facility] [address] [place] [address] Provider, MD Pradip [address] [place] [address] Social History Tobacco Use Types Packs/Day [...] - Inhaled Oxygen Concentration - - Weight 60.1 kg (132 lb 9 oz) 06/24/2015 11:16 AM EST Height - - Body Mass Index 20.76 05/27/2015 9:11 AM EST documented in this encounter Plan of Treatment Upcoming Encounters Date Type Department Care Team (Late st Contact Info) Description 03/25/2024 8:00 AM EST Office Visit Obstetrics & Gynecology [address] [place] [address] Felice Camacho MD [address] [place] [address] 04/05/2024 9:00 AM EST Clinical Support Obstetrics & Gynecology [address] [place] [address] 05/03/2024 9:00 AM EST Clinical Support Obstetrics & Gynecology [address] [place] [address] 05/31/2024 9:00 AM EST Clinical Support Obstetrics & Gynecology [address] [place] [address] 06/28/2024 9:00 AM EST Clinical Support Obstetrics & Gynecology [address] [place] [address] documented as of this encounter Visit Diagnoses Not on filedocumented in this encounter
--- OUTSIDE RECORDS SUMMARY | 2024-03-13 16:30 | XMS_ITS | Encounter Summary ---
Author Organization Healthcare Address [address] [place] [address] Care Team Providers Care Broadband Technician Name Role Phone Unavailable Primary Care Provider Unavailabl e Encounter Details Date Type Department Care Team (Late st Contact Info) Description 01/12/2016 [facility] AEHR Vitals Encounter [facility] [address] [place] [address] Provider, MD Pradip [address] [place] [address] Social History Tobacco Use Types Packs/Day [...] Weight 53.8 kg (118 lb 8 oz) 01/12/2016 11:19 AM EDT Height - - Body Mass Index 18.56 05/27/2015 9:11 AM EST documented in this encounter Plan of Treatment Upcoming Encounters Date Type Department Care Team (Late st Contact Info) Description 03/25/2024 8:00 AM EST Office Visit Obstetrics & Gynecology [address] [place] [address] Felice Camacho MD [address] [place] [address] 04/05/2024 9:00 AM EST Clinical Support Obstetrics & Gynecology [address] [place] [address] 05/03/2024 9:00 AM EST Clinical Support Obstetrics & Gynecology [address] [place] [address] 05/31/2024 9:00 AM EST Clinical Support Obstetrics & Gynecology [address] [place] [address] 06/28/2024 9:00 AM EST Clinical Support Obstetrics & Gynecology [address] [place] [address] documented as of this encounter Visit Diagnoses Not on filedocumented in this encounter
--- OUTSIDE RECORDS SUMMARY | 2024-03-13 16:30 | XMS_ITS | Encounter Summary ---
Author Organization Healthcare Address [address] [place] [address] Care Team Providers Care Edge Grinder Name Role Phone Unavailable Primary Care Provider Unavailabl e Encounter Details Date Type Department Care Team (Late st Contact Info) Description 12/22/2015 [facility] AEHR Vitals Encounter [facility] [address] [place] [address] Provider, MD Pradip [address] [place] [address] Social History Tobacco Use Types Packs/Day [...] 53.5 kg (117 lb 15.8 oz) 016 11:54 AM EDT Height - - Body Mass Index 18.48 05/27/2015 9:11 AM EST documented in this encounter Plan of Treatment Upcoming Encounters Date Type Department Care Team (Late st Contact Info) Description 03/25/2024 8:00 AM EST Office Visit Obstetrics & Gynecology [address] [place] [address] Felice Camacho MD [address] [place] [address] 04/05/2024 9:00 AM EST Clinical Support Obstetrics & Gynecology [address] [place] [address] 05/03/2024 9:00 AM EST Clinical Support Obstetrics & Gynecology [address] [place] [address] 05/31/2024 9:00 AM EST Clinical Support Obstetrics & Gynecology [address] [place] [address] 06/28/2024 9:00 AM EST Clinical Support Obstetrics & Gynecology [address] [place] [address] documented as of this encounter Visit Diagnoses Not on filedocumented in this encounter
--- OUTSIDE RECORDS SUMMARY | 2024-03-13 16:30 | XMS_ITS | Encounter Summary ---
Author Organization Healthcare Address [address] [place] [address] Care Team Providers Care Plumber Cub Name Role Phone Unavailable Primary Care Provider Unavailabl e Encounter Details Date Type Department Care Team (Late st Contact Info) Description 08/19/2015 [facility] AEHR Vitals Encounter [facility] [address] [place] [address] Provider, MD Pradip [address] [place] [address] Social History Tobacco Use Types Packs/Day [...] - Inhaled Oxygen Concentration - - Weight 61 kg (134 lb 9.5 oz) 08/19/2015 1:11 PM EDT Height - - Body Mass Index 21.08 05/27/2015 9:11 AM EST documented in this encounter Plan of Treatment Upcoming Encounters Date Type Department Care Team (Late st Contact Info) Description 03/25/2024 8:00 AM EST Office Visit Obstetrics & Gynecology [address] [place] [address] Felice Camacho MD [address] [place] [address] 04/05/2024 9:00 AM EST Clinical Support Obstetrics & Gynecology [address] [place] [address] 05/03/2024 9:00 AM EST Clinical Support Obstetrics & Gynecology [address] [place] [address] 05/31/2024 9:00 AM EST Clinical Support Obstetrics & Gynecology [address] [place] [address] 06/28/2024 9:00 AM EST Clinical Support Obstetrics & Gynecology [address] [place] [address] documented as of this encounter Visit Diagnoses Not on filedocumented in this encounter
--- OUTSIDE RECORDS SUMMARY | 2024-03-13 16:30 | XMS_ITS | Encounter Summary ---
Author Organization Healthcare Address [address] [place] [address] Care Team Providers Care Brickmason Supervisor Name Role Phone Unavailable Primary Care Provider Unavailabl e Encounter Details Date Type Department Care Team (Late st Contact Info) Description 07/22/2015 [facility] AEHR Vitals Encounter [facility] [address] [place] [address] Provider, MD Pradip [address] [place] [address] Social History Tobacco Use Types Packs/Day [...] - Inhaled Oxygen Concentration - - Weight 60.5 kg (133 lb 6.4 oz) 07/22/2015 1:33 P M EDT Height - - Body Mass Index 20.89 05/27/2015 9:11 AM EST documented in this encounter Plan of Treatment Upcoming Encounters Date Type Department Care Team (Late st Contact Info) Description 03/25/2024 8:00 AM EST Office Visit Obstetrics & Gynecology [address] [place] [address] Felice Camacho MD [address] [place] [address] 04/05/2024 9:00 AM EST Clinical Support Obstetrics & Gynecology [address] [place] [address] 05/03/2024 9:00 AM EST Clinical Support Obstetrics & Gynecology [address] [place] [address] 05/31/2024 9:00 AM EST Clinical Support Obstetrics & Gynecology [address] [place] [address] 06/28/2024 9:00 AM EST Clinical Support Obstetrics & Gynecology [address] [place] [address] documented as of this encounter Visit Diagnoses Not on filedocumented in this encounter
--- OUTSIDE RECORDS SUMMARY | 2024-03-13 16:30 | XMS_ITS | Encounter Summary ---
Author Organization Healthcare Address [address] [place] [address] Care Team Providers Care Laundry Routeman Name Role Phone Unavailable Primary Care Provider Unavailabl e Encounter Details Date Type Department Care Team (Late st Contact Info) Description 06/07/2016 [facility] AEHR Vitals Encounter [facility] [address] [place] [address] Provider, MD Pradip [address] [place] [address] Social History Tobacco Use Types Packs/Day [...] - Inhaled Oxygen Concentration - - Weight 54.5 kg (120 lb 2.1 oz) 06/07/2016 10:33 AM EST Height - - Body Mass Index 18.81 05/27/2015 9:11 AM EST documented in this encounter Plan of Treatment Upcoming Encounters Date Type Department Care Team (Late st Contact Info) Description 03/25/2024 8:00 AM EST Office Visit Obstetrics & Gynecology [address] [place] [address] Felice Camacho MD [address] [place] [address] 04/05/2024 9:00 AM EST Clinical Support Obstetrics & Gynecology [address] [place] [address] 05/03/2024 9:00 AM EST Clinical Support Obstetrics & Gynecology [address] [place] [address] 05/31/2024 9:00 AM EST Clinical Support Obstetrics & Gynecology [address] [place] [address] 06/28/2024 9:00 AM EST Clinical Support Obstetrics & Gynecology [address] [place] [address] documented as of this encounter Visit Diagnoses Not on filedocumented in this encounter
--- OUTSIDE RECORDS SUMMARY | 2024-03-13 16:30 | XMS_ITS | Encounter Summary ---
Author Organization Healthcare Address [address] [place] [address] Care Team Providers Care Land Leases And Rentals Manager Name Role Phone Corina Spence APRN Primary Care Provider [phone] Unavailable [phone] Reason for Visit * Reason Onset Date Comments HCN - Patient Message 10/30/2020 Encounter Details Date Type Department Care Team (Late st Contact Info) Description 10/30/2020 Telephone Obstetrics & Gynecology [address] [place] [address] Felice Camacho MD [facility] [facility] [place] [address] HCN - Patient Message Social History Tobacco Use Types Packs/Day Years Used Date Smoking Tobacco: Never [place] Depression Scale Answer Date Recorded [place] Depression Scale Total 0 02/18/2021 The thought [...] encounter Miscellaneous Notes * Telephone Encounter - Jessica Mueller - 11/03/2020 9:10 AM EDT Patient Phone Message Reason for Call: Pt calling back to sched 2nd glucose test. Pt needs to have done this week. Pt wastold to pick Mon or Mon; states can do either day. Pt told to call to clinic and have message put in for sched Best contact number and optimal time of day to reach caller: [phone] Note: Please do not reply to this message. Follow-up communication and further actions as a result of this message need to be communicated with the patient directly, if the patient is not active onMyChart. If the patient is active on MyChart, they will receive notification of the communication/outcome via MyChart. * Telephone Encounter - Krysta Guillory - 10/30/2020 12:18 PM EDT Patient Phone Message Reason for Call: Pt calling was given results told to schedule 2nd glucose. No avail appts until 11/12 asking about next week 11/04 to be seen. Please call to advise. Thanks Best contact number and optimal time of day to reach caller: [phone] Note: Please do not reply to this [...] Visit Obstetrics & Gynecology [address] [place] [address] Felice Camacho MD [address] [place] [address] 04/05/2024 9:00 AM EST Clinical Support Obstetrics & Gynecology [address] [place] [address] 05/03/2024 9:00 AM EST Clinical Support Obstetrics & Gynecology [address] [place] [address] 05/31/2024 9:00 AM EST Clinical Support Obstetrics & Gynecology [address] [place] [address] 06/28/2024 9:00 AM EST Clinical Support Obstetrics & Gynecology [address] [place] [address] documented as of this encounter Visit Diagnoses Not on filedocumented in this encounter Care Teams Land Leases And Rentals Manager Relationship Specialty Start Date End Date Corina Spence APRN [facility] [place] [address] PCP - General 09/11/[address] [address] Neighborhood Worker Dietitian 11/24/20 01/11/24 documented as of this encounter
--- OUTSIDE RECORDS SUMMARY | 2024-03-13 16:30 | XMS_ITS | Encounter Summary ---
Author Organization Healthcare Address [address] [place] [address] Care Team Providers Care Scientific Programmer Name Role Phone Unavailable Primary Care Provider Unavailabl e Encounter Details Date Type Department Care Team (Late st Contact Info) Description 09/23/2015 [facility] AEHR Vitals Encounter [facility] [address] [place] [address] Provider, MD Pradip [address] [place] [address] Social History Tobacco Use Types Packs/Day [...] - Inhaled Oxygen Concentration - - Weight 57.2 kg (125 lb 15.9 oz) 016 11:20 AM EDT Height - - Body Mass Index 19.73 05/27/2015 9:11 AM EST documented in this encounter Plan of Treatment Upcoming Encounters Date Type Department Care Team (Late st Contact Info) Description 03/25/2024 8:00 AM EST Office Visit Obstetrics & Gynecology [address] [place] [address] Felice Camacho MD [address] [place] [address] 04/05/2024 9:00 AM EST Clinical Support Obstetrics & Gynecology [address] [place] [address] 05/03/2024 9:00 AM EST Clinical Support Obstetrics & Gynecology [address] [place] [address] 05/31/2024 9:00 AM EST Clinical Support Obstetrics & Gynecology [address] [place] [address] 06/28/2024 9:00 AM EST Clinical Support Obstetrics & Gynecology [address] [place] [address] documented as of this encounter Visit Diagnoses Not on filedocumented in this encounter
--- OUTSIDE RECORDS SUMMARY | 2024-03-13 16:30 | XMS_ITS | Encounter Summary ---
Author Organization Healthcare Address [address] [place] [address] Care Team Providers Care Braider Setter Name Role Phone Unavailable Primary Care Provider Unavailabl e Encounter Details Date Type Department Care Team (Late st Contact Info) Description 07/15/2015 [facility] AEHR Vitals Encounter [facility] [address] [place] [address] Provider, MD Pradip [address] [place] [address] Social History Tobacco Use Types Packs/Day [...] - - Weight 59.2 kg (130 lb 9.6 oz) 07/15/2015 1:27 P M EDT Height - - Body Mass Index 20.45 05/27/2015 9:11 AM EST documented in this encounter Plan of Treatment Upcoming Encounters Date Type Department Care Team (Late st Contact Info) Description 03/25/2024 8:00 AM EST Office Visit Obstetrics & Gynecology [address] [place] [address] Felice Camacho MD [address] [place] [address] 04/05/2024 9:00 AM EST Clinical Support Obstetrics & Gynecology [address] [place] [address] 05/03/2024 9:00 AM EST Clinical Support Obstetrics & Gynecology [address] [place] [address] 05/31/2024 9:00 AM EST Clinical Support Obstetrics & Gynecology [address] [place] [address] 06/28/2024 9:00 AM EST Clinical Support Obstetrics & Gynecology [address] [place] [address] documented as of this encounter Visit Diagnoses Not on filedocumented in this encounter
--- OUTSIDE RECORDS SUMMARY | 2024-03-13 16:30 | XMS_ITS | Encounter Summary ---
Author Organization Healthcare Address [address] [place] [address] Care Team Providers Care Firearms Specialist Name Role Phone Corina Spence APRN Primary Care Provider [phone] Unavailable [phone] Reason for Visit * Reason Onset Date Comments HCN - Patient Message 10/28/2020 sultana doyle Encounter Details Date Type Department Care Team (Late st Contact Info) Description 10/28/2020 Telephone Obstetrics & Gynecology [address] [place] [address] Felice Camacho MD [address] [place] [address] HCN - Patient Message (instructions ) Social History Tobacco Use Types Packs/Day Years Used Date Smoking Tobacco: Never Donaldson Depression Scale Answer Date Recorded [place] Depression Scale Total 0 02/18/2021 The thought [...] encounter Miscellaneous Notes * Telephone Encounter - Ashlyn Link - 10/28/2020 10:06 AM EDT Called pt and gave instructions for glucose test tomorrow. * Telephone Encounter - Johan Up - 10/28/2020 9:17 AM EDT Patient Phone Message Reason for Call: Patient calling for glucose test instructionsl Best contact number and optimal time of day to reach caller: [phone] Note: Please do not reply to this [...] EST Office Visit Obstetrics & Gynecology [address] [place] [address] Felice Camacho MD [address] [place] [address] 04/05/2024 9:00 AM EST Clinical Support Obstetrics & Gynecology [address] [place] [address] 05/03/2024 9:00 AM EST Clinical Support Obstetrics & Gynecology [address] [place] [address] 05/31/2024 9:00 AM EST Clinical Support Obstetrics & Gynecology [address] [place] [address] 06/28/2024 9:00 AM EST Clinical Support Obstetrics & Gynecology [address] [place] [address] documented as of this encounter Visit Diagnoses Not on filedocumented in this encounter Care Teams Firearms Specialist Relationship Specialty Start Date End Date Corina Spence APRN [address] [place] [address] PCP - General 09/11/[address] [address] Scrap Worker Dietitian 11/24/20 01/11/24 documented as of this encounter
--- OUTSIDE RECORDS SUMMARY | 2024-03-13 16:30 | XMS_ITS | Encounter Summary ---
Author Organization Healthcare Address [address] [place] [address] Care Team Providers Care Superintendent Transmission Name Role Phone Unavailable Primary Care Provider Unavailabl e Encounter Details Date Type Department Care Team (Late st Contact Info) Description 10/07/2015 [facility] AEHR Vitals Encounter [facility] [address] [place] [address] Provider, MD Pradip [address] [place] [address] Social History Tobacco Use Types Packs/Day [...] - Inhaled Oxygen Concentration - - Weight 56.9 kg (125 lb 8.1 oz) 10/07/2015 10:31 AM EDT Height - - Body Mass Index 19.66 05/27/2015 9:11 AM EST documented in this encounter Plan of Treatment Upcoming Encounters Date Type Department Care Team (Late st Contact Info) Description 03/25/2024 8:00 AM EST Office Visit Obstetrics & Gynecology [address] [place] [address] Felice Camacho MD [address] [place] [address] 04/05/2024 9:00 AM EST Clinical Support Obstetrics & Gynecology [address] [place] [address] 05/03/2024 9:00 AM EST Clinical Support Obstetrics & Gynecology [address] [place] [address] 05/31/2024 9:00 AM EST Clinical Support Obstetrics & Gynecology [address] [place] [address] 06/28/2024 9:00 AM EST Clinical Support Obstetrics & Gynecology [address] [place] [address] documented as of this encounter Visit Diagnoses Not on filedocumented in this encounter
--- OUTSIDE RECORDS SUMMARY | 2024-03-13 16:30 | XMS_ITS | Encounter Summary ---
Author Organization Healthcare Address [address] [place] [address] Care Team Providers Care Truck Washer Name Role Phone Unavailable Primary Care Provider Unavailabl e Encounter Details Date Type Department Care Team (Late st Contact Info) Description 11/11/2015 [facility] AEHR Vitals Encounter [facility] [address] [place] [address] Provider, MD Pradip [address] [place] [address] Social History Tobacco Use Types Packs/Day [...] Weight 54.5 kg (120 lb 2.1 oz) 11/11/2015 10:46 AM EDT Height - - Body Mass Index 18.81 05/27/2015 9:11 AM EST documented in this encounter Plan of Treatment Upcoming Encounters Date Type Department Care Team (Late st Contact Info) Description 03/25/2024 8:00 AM EST Office Visit Obstetrics & Gynecology [address] [place] [address] Felice Camacho MD [address] [place] [address] 04/05/2024 9:00 AM EST Clinical Support Obstetrics & Gynecology [address] [place] [address] 05/03/2024 9:00 AM EST Clinical Support Obstetrics & Gynecology [address] [place] [address] 05/31/2024 9:00 AM EST Clinical Support Ob[facility]s & Gynecology [address] [place] [address] 06/28/2024 9:00 AM EST Clinical Support Ob[facility]etrics & Gynecology [address] [place] [address] documented as of this encounter Visit Diagnoses Not on filedocumented in this encounter
--- OUTSIDE RECORDS SUMMARY | 2024-03-13 16:30 | XMS_ITS | Encounter Summary ---
Author Organization Healthcare Address [address] [place] [address] Care Team Providers Care Technical Services Analyst Name Role Phone Unavailable Primary Care Provider Unavailabl e Encounter Details Date Type Department Care Team (Late st Contact Info) Description 07/01/2015 [facility] Vitals Encounter [facility] [address] [place] [address] Provider, MD Pradip [address] [place] [id number] Social History Tobacco Use Types Packs/Day [...] - Inhaled Oxygen Concentration - - Weight 59.1 kg (130 lb 6.1 oz) 07/01/2015 12:07 PM EST Height - - Body Mass Index 20.42 05/27/2015 9:11 AM EST documented in this encounter Plan of Treatment Upcoming Encounters Date Type Department Care Team (Late st Contact Info) Description 03/25/2024 8:00 AM EST Office Visit Obstetrics & Gynecology [address] [place] [address] Felice Camacho MD [address] [place] [address] 04/05/2024 9:00 AM EST Clinical Support Obstetrics & Gynecology [address] [place] [address] 05/03/2024 9:00 AM EST Clinical Support Obstetrics & Gynecology [address] [place] [address] 05/31/2024 9:00 AM EST Clinical Support Obstetrics & Gynecology [address] [place] [address] 06/28/2024 9:00 AM EST Clinical Support Obstetrics & Gynecology [address] [place] [address] documented as of this encounter Visit Diagnoses Not on filedocumented in this encounter
[2024-03-13 16:31] VITALS: BMI 19.5
[2024-03-13 16:32] VITALS: BP 125/88; PULSE 129; O2SAT 98
[2024-03-13 16:36] VITALS: BP 125/88; PULSE 122; RESP 18; TEMP 36.5; O2SAT 97; BMI 19.1
--- NOTE | 2024-03-13 16:55 | ED_ITS ---
<Statement entered by Sana Mendes DO - 03/13/24 22:52> I was consulted by the JENNIFER, and we discussed the complexity of the problems being addressed. I approved the treatment and management plan for this patient's care in the emergency department, thus performing a substantive portion of the medical decision making. Sana Mendes DO Discharge Plan Disposition Chief Complaint: PAIN Prescriptions Prescriptions: No Action amitriptyline 10 mg tablet 10 mg PO DAILY Patient Comments: TAKE 1 TABLET BY MOUTH AT BEDTIME NEEDED quetiapine 50 mg tablet 50 mg PO DAILY Patient Comments: TAKE 1 TABLET BY MOUTH EVERY DAY AT BEDTIME Referrals Follow up/Referrals: Mita Katz APRN [Primary Care Provider] - See instructions Activity Restrictions/Add. Instructions Additional Instructions/Restrictions: Please follow-up with call center representative, pain management, PT, orthopedic provider, and family doctor. Return to the emergency department for any worsening signs or symptoms. Continue to take all your medications as prescribed. Clinical Impressions Clinical Impression: Bilateral hip pain Instructions Patient Instructions: DI for Chronic Pain -- Adult Print Language Print Language: Kittitian Discharge ED Provider: Sana Mendes General Adult HPI General Chief complaint: PAIN Stated complaint: bilateral hip pain, LT leg pain Time Seen by Provider: 03/13/24 16:22 Mode of Arrival: Ambulatory Source of Information: Patient Limitations: No Limitations Description of Symptoms (Recalled from ER Triage Doc. by RN): pt c/o bilateral SI joint and L hip pain that radiates distally. pt states her pain is an 8/10 and dull. pt has a L hip MRI on the 4th and SI joint injections on 10th. pt states she saw pain management today and was forthright about her Quigo usage, however, due to that they were unwilling to accept her as a patient. pt states she sees a chiropractor daily. She is requesting something for break through pain. History of Present Illness HPI narrative: 28-year-old female presents emergency department with lateral hip and left leg pain, that started this morning when the patient arose out of bed and was going down her stairs, no real trauma per history, she denies any fever chills chest pain nausea vomiting, abdominal pain, urinary type symptomatology. Patient has past medical history consistent with Aleksandr Danlos syndrome, sacroiliitis, rheumatoid arthritis, Raynaud's syndrome, hip impingement syndrome, she attempted to follow-up pain management, had SI injections in the past most recently on 10 March, she was recently discharged from her pain management clinic due to marijuana use, she is a current everyday tobacco user, denies any alcohol or other drug use. Denies any upper or lower extremity weakness, denies any numbness or tingling, denies any real radicular symptomatology, denies any urinary bladder or bowel dysfunction. She has upcoming orthopedic follow-up with MRI of the pelvis/hips. Patient is here today with breakthrough pain, and would like further pain control outside of her gabapentin daily, NSAID use daily, Tylenol use daily until she can get back on her pain management facility. Initial triage vitals grossly unremarkable the exception of tachycardia. Onset (ago): hour(s) Related Data Home Medications ?Medication ?Instructions ?Recorded ?Confirmed amitriptyline 10 mg tablet 10 mg PO DAILY 05/02/23 10/31/23 quetiapine 50 mg tablet 50 mg PO DAILY 05/02/23 10/31/23 Allergies Allergy/AdvReac Type Severity Reaction Status Date / Time No Known Allergies Allergy Verified 10/31/23 15:01 [facility] Disclaimer: The information contained in this section may have been updated after the patient was seen, as this information can be updated by other users. Medical History Depression Anxiety Urinary tract infection Kidney stone Migraine Social History Smoking Status: Current every day smoker alcohol intake: never current occupational status: employed Travel in the last 8 weeks: None ROS Obtained: Yes All systems reviewed & no additional complaints except as documented Physical Exam General General appearance: alert and in no apparent distress Head Head exam: atraumatic and normocephalic Eye Eye exam: Present PERRL and EOMI ENT ENT exam: Present mucous membranes moist Neck Neck exam: Present normal inspection Chest Chest inspection: Present normal inspection and symmetric chest wall rise Respiratory Respiratory exam: Present normal lung sounds bilaterally; Absent respiratory distress Cardiovascular Cardiovascular exam: Present regular rate and normal rhythm Abdominal Exam Abdominal exam: Present soft; Absent tenderness Extremities Exam Extremities exam: Present normal inspection, tenderness and other (Patient has mild to moderate pain to palpation to the left hip, negative lumbar, thoracic, or cervical spine tenderness palpation. She has some decreased range of motion of the left hip); Absent full ROM Back Exam Back exam: Present normal inspection and full ROM Neurological Exam Neurological exam: Present alert, oriented X3, normal gait and other (Patient has 5 out of 5 strength in the bilateral lower and upper extremities, negative Chris sign bilaterally, no sensation deficit); Absent motor sensory deficit Psychiatric Psychiatric exam: Present normal affect Skin Skin exam: Present warm and dry Medical Decision Making Medical Records Medical records reviewed: Yes I reviewed the patient's medical records. Screening: Per USPSTF and CDC recommendations, given the prevalence of disease in our [facility], it is our hospital?s policy to screen for HIV and viral Hepatitis for all patients aged 18 and over and those with ongoing risk factors. Arsalan Inquiry Pt receiving controlled substance: No Arsalan was queried for this patient: No Vital Signs: 03/13/24 16:36 Temperature 97.7 F Temperature Source Oral Pulse Rate [Left] 122 H Respiratory Rate 18 Blood Pressure [Right Arm] 125/88 Blood Pressure Mean [Right Arm] 100 Blood Pressure Source [Right Arm] Automatic Cuff Blood Pressure Position [Right Arm] Sitting 02 Sat by Pulse Oximetry 97 Oxygen Delivery Method Room Air Lab Data Lab results reviewed: Yes I reviewed the patient's lab results. Lab Results 03/13/24 16:33: Urine HCG, Qual Negative Orders (Tests/Meds): ED MEDICATIONS Generic Name Dose Route Start Last Admin Trade Name Freq PRN Reason Stop Dose Admin Dexamethasone Sodium Phosphate 10 mg 03/13/24 17:44 03/13/24 17:46 Dexamethasone 4mg/Ml 1ml Vial IM 03/13/24 17:45 10 mg ONCE ONE Administration Discontinued Medications Generic Name Dose Route Start Last Admin Trade Name Freq PRN Reason Stop Dose Admin Dexamethasone 10 mg 03/13/24 16:32 03/13/24 17:44 Dexamethasone 4mg Tablet PO 03/13/24 16:33 Not Given ONCE ONE Ketorolac Tromethamine 15 mg 03/13/24 16:32 03/13/24 17:41 Ketorolac 30mg/Ml Vial IM 03/13/24 16:33 15 mg ONCE ONE Administration ORDERS Category Date Time Status Hip XR left minimum 2 views [XR hip LT 2-3V w/pelvis] Exams 03/13/24 17:10 Completed Stat Urine , HCG Qual. Stat Lab 03/13/24 16:33 Completed Medical Decision Narrative: 28-year-old female presents emergency department with bilateral hip pain, left worse than right, left leg pain, differential diagnose include not limited to breakthrough chronic pain type syndrome, sacroiliitis, acute lumbar sacral strain, intertrochanteric bursitis, piriformis syndrome. I discussed patient case with attending physician Dr. Mendes Will obtain pelvic x-ray, will give 15 mg IM Toradol for pain and 10 mg IM. dexamethasone, as well as hCG hcg negative. Reviewed the patient's hip x-ray along with the corresponding radiologic report, no acute findings. Reexamination of the patient tachycardia had improved at approximately 5:55 PM patient is feeling better after medication administration. I discussed these findings with the patient at the bedside, patient is in agreement with current treatment plan/discharge plan, patient is feeling better after IM injections, patient has slated follow-up with PCP orthopedics r heumatologist pain management. Strict ED return precautions were given, patient voiced understanding and agreement with current treatment plan/discharge plan will follow-up with other providers as directed. Critical Care Critical Care Time Critical Care Time: No
--- NOTE | 2024-03-13 17:10 | XR_ITS ---
PROCEDURE INFORMATION: Exam: XR Left Hip Exam date and time: 03/13/2024 5:09 PM Age: 28 years old Clinical indication: Hip pain; Left hip TECHNIQUE: Imaging protocol: Radiologic exam of the left hip. Views: 2 or 3 views hip with pelvis when performed. COMPARISON: No relevant prior studies available. FINDINGS: Bones/joints: Unremarkable. No acute fracture. Soft tissues: Unremarkable. IMPRESSION: No acute findings.
[2024-03-13 17:15] LABS: Urine Pregnancy, HCG Qual. Negative (Negative)
[2024-03-13] MEDS: KETOROLAC 30MG/ML VIAL 15 MG IM (17:41)
[2024-03-13] MEDS: DEXAMETHASONE 4MG/ML 1ML VIAL 10 MG IM (17:46)
[2024-03-13 18:06] VITALS: BP 119/87; PULSE 99; RESP 16; TEMP 36.7
== END 2024-03-13 18:10 | disposition home or self-care (01) ==
PROVIDERS: Physician Assistant; Emergency Provider Emergency Medicine; PCP Nurse Practitioner Family
DX: M25.552 Pain in left hip (principal); M25.551 Pain in right hip; M79.605 Pain in left leg; F12.90 Cannabis use, unspecified, uncomplicated
CPT/HCPCS: 73502; 81025; 96372; 99283; J1100; J1885; J8540